=== PATIENT | female | born 1995 | race Caucasian/White ===

== ENCOUNTER 2023-01-21 18:51 | Emergency (ER) | payer MEDICAID, SELFPAY ==
[2023-01-21 18:57] VITALS: BP 130/76; PULSE 83; RESP 20; TEMP 36.8; O2SAT 98; BMI 45.8
--- NOTE | 2023-01-21 19:03 | ED.URI1 ---
HPI - URI/Sore Throat General Chief Complaint: Upper Respiratory Infection Stated Complaint: URTI COMPLAINT Time Seen by Provider: 01/21/23 18:59 Source: patient Limitations: no limitations History of Present Illness HPI Narrative: 27 year old female presents to the ED for cough, congestion, body aches. Onset was 2-3 days ago. Denies fever, chills, SOB, N/V/D. Her son is also ill. She denies concern for Covid-19 and is declining testing today. Denies pain at this time. MD elicited complaint: Reports cough, sore throat, rhinorrhea and nasal congestion; Denies fever Associated symptoms: Reports headache, rhinorrhea, nasal congestion and cough; Denies fever, chills, chest pain, shortness of breath, abdominal pain, vomiting or diarrhea Related Data Allergies Allergy/AdvReac Type Severity Reaction Status Date / Time Penicillins Allergy Severe Verified 01/21/23 18:58 Review of Systems ROS Constitutional Denies: fever or chills Ears, nose, mouth, and throat Reports: throat pain, nasal discharge and nasal congestion; Denies: neck pain, ear pain or ear discharge Cardiovascular Denies: chest pain Respiratory Reports: cough; Denies: shortness of breath Gastrointestinal Denies: abdominal pain, nausea, vomiting or diarrhea Musculoskeletal Denies: back pain or neck pain Integumentary/Breast Denies: rash or itching Neurological Denies: headache Endocrine Reports: fatigue Exam Constitutional Vital Signs, click to edit/add: Last Vital Signs Temp 98.2 F 01/21/23 18:57 Pulse 83 01/21/23 18:57 Resp 20 01/21/23 18:57 BP 130/76 01/21/23 18:57 Pulse Ox 98 01/21/23 18:57 O2 Del Method Room Air 01/21/23 18:57 Common normals: no apparent distress and oriented x3 Exam limitations: no altered mental status General appearance: cooperative; not in distress and not ill appearing [facility] Common normals: normocephalic Nose: nasal discharge External ear: external ears normal External auditory canal: EACs normal Tympanic membrane: TMs normal bilaterally Mouth: oral and palatal mucosa normal, lip normal and tongue normal Eye Common normals: conjunctivae normal and no scleral icterus Neck & C-Spine Common normals: supple Chest Chest: symmetrical chest wall rise Respiratory Common normals: normal respiratory effort and clear to auscultation bilaterally Effort & inspection: symmetric chest movement Cardio Common normals: regular rate and regular rhythm Neuro Common normals: oriented x3 Sensorium/orientation: awake and alert Course Vital Signs Vital signs: Vital Signs Temperature 98.2 F 01/21/23 18:57 Pulse Rate 83 01/21/23 18:57 Respiratory Rate 20 01/21/23 18:57 Blood Pressure 130/76 01/21/23 18:57 Pulse Oximetry 98 01/21/23 18:57 Oxygen Delivery Method Room Air 01/21/23 18:57 Temperature 98.2 F 01/21/23 18:57 Pulse Rate 83 01/21/23 18:57 Respiratory Rate 20 01/21/23 18:57 Blood Pressure 130/76 01/21/23 18:57 Pulse Oximetry 98 01/21/23 18:57 Oxygen Delivery Method Room Air 01/21/23 18:57 MDM - URI/Sore Throat MDM Narrative Medical decision making narrative: LS were clear. Pharynx was unremarkable. Viral URI was discussed with the patient. Return precautions were discussed. Follow up with pcp for a recheck, further evaluation and treatment. She declined Covid-19 testing today. Differential Diagnosis Differential diagnosis: Likely upper respiratory infection, sinusitis, viral infection, bronchitis, influenza and other (Covid-19) Discharge Plan Discharge Chief Complaint: Upper Respiratory Infection Clinical Impression: Upper respiratory infection, viral Patient Disposition: Home, Self-Care Time of Disposition Decision: 19:08 Condition: Good Mode of Transportation: Private Vehicle Instructions: Upper Respiratory Infection (ED) Stand Alone Forms: Portal Instructions Referrals: Physician,Non-Staff, MD [Primary Care Provider] - 1 week Discharge Date/Time: 01/21/23 19:35
== END 2023-01-21 19:35 | disposition home or self-care (01) ==
LOC: ER 19:36
PROVIDERS: Emergency Provider Emergency Medicine
DX: J06.9 Acute upper respiratory infection, unspecified (principal)
CPT/HCPCS: 99281

== ENCOUNTER 2023-02-25 16:01 | Emergency (ER) | payer MEDICAID, SELFPAY ==
[2023-02-25 16:08] VITALS: BP 122/82; PULSE 71; RESP 20; TEMP 36.7; O2SAT 100; BMI 49.9
--- NOTE | 2023-02-25 17:08 | ED_ITS ---
HPI - General Adult General Chief complaint: Headache Stated complaint: MIGRAINE Time Seen by Provider: 02/25/23 16:51 Source: patient Mode of arrival: walk-in History of Present Illness HPI narrative: Patient is a 28-year-old female who is presenting to the Emergency Room today with chief complaint four-day history of headache that is moving. Patient states it is in the left frontal aspect, then moves to the right frontal aspect drink, then to the top of the scalp, then to the left parietal area. Patient states she feels like it's a tension headache, but she has no neck pain. No meningeal signs or symptoms. Patient has mild nausea, no vomiting. Patient denies any type of trauma or fall. Patient has no PCP. Patient has no hearing or vision changes. She is no chest pain, shortness of breath. Patient states she took a Tylenol yes terday with no relief, nothing today. No other acute complaints. Patient is here because the headache has been constant, for 4 days. Patient states is approximately 6/7 out of 10. Patient's headache was not the worse headache of her life, not sudden onset, not thunderclap in nature. . All systems are negative except as noted/marked. All systems reviewed and otherwise negative. . Nurses note and vital signs reviewed and patient is not hypoxic. General: The patient appears well and in no apparent distress. Patient is resting comfortably on cart. Patient is not toxic, lethargic, or listless. Patient smells of body odor. Poor hygiene. Skin: Warm, dry, no pallor noted. There is no rash noted. No petechiae, purpura. Head: Normocephalic, atraumatic; Patient has no midline or paracervical tenderness to palpation. Full range of motion with no difficulty, no meningeal signs or symptoms. No tenderness to palpation to bilateral maxillary or frontal sinus. Eye: Normal conjunctiva, no drainage, EOMI. PERRL Ears, Nose, Mouth, and Throat: oral mucosa is moist. Nares patent. Mouth without vesicles. Cardiovascular: Regular Rate and Rhythm, no murmur, gallop, rub Respiratory: Patient is in no distress, no accessory muscle use, lungs are clear to auscultation, no wheezing, rales or rhonchi Back: non-tender, no CVA tenderness bilaterally to percussion. No CT LS midline pain GI: soft, Over the obese, no tenderness to palpation, no masses appreciated. No rebound, guarding, or rigidity noted. No flank pain bilateral, No distention Musculoskeletal: Patient has full range of motion of all of the extremities, no motor, sensory, or focal neurological deficits Neurological: A&O x3, normal speech Psychiatric: Cooperative Related Data Previous Rx's Medication Instructions Recorded metoclopramide HCl 10 mg tablet 10 mg PO Q6H PRN nausea and 02/25/23 (Reglan) vomiting 3 days #7 tabs Allergies Allergy/AdvReac Type Severity Reaction Status Date / Time Penicillins Allergy Severe Verified 02/25/23 16:10 Exam Constitutional Vital Signs, click to edit/add: Last Vital Signs Temp 98.0 F 02/25/23 16:08 Pulse 72 02/25/23 17:48 Resp 18 02/25/23 17:48 BP 142/80 H 02/25/23 17:48 Pulse Ox 98 02/25/23 17:48 O2 Del Method Room Air 02/25/23 16:43 Course Vital Signs Vital signs: Vital Signs Temperature 98.0 F 02/25/23 16:08 Pulse Rate 71 02/25/23 16:08 Respiratory Rate 20 02/25/23 16:08 Blood Pressure 122/82 02/25/23 16:08 Pulse Oximetry 100 02/25/23 16:08 Oxygen Delivery Method Room Air 02/25/23 16:08 Temperature 98.0 F 02/25/23 16:08 Pulse Rate 72 02/25/23 17:48 Respiratory Rate 18 02/25/23 17:48 Blood Pressure 142/80 H 02/25/23 17:48 Pulse Oximetry 98 02/25/23 17:48 Oxygen Delivery Method Room Air 02/25/23 16:43 Discharge Plan Discharge Chief Complaint: Headache Clinical Impression: Headache Patient Disposition: Home, Self-Care Condition: Good Prescriptions / Home Meds: New metoclopramide HCl [Reglan] 10 mg tablet 10 mg PO Q6H PRN (Reason: nausea and vomiting) 3 Days Qty: 7 0RF Instructions: Acute Headache (ED) Additional Instructions: PCP referral list has been given to his well. Use [id number] Tylenol and Motrin as needed help with headache. Reglan can help with nausea, vomiting and headache. Establish a PCP. Stand Alone Forms: Portal Instructions Referrals: Physician,Non-Staff, MD [Primary Care Provider] - 1 week Discharge Date/Time: 02/25/23 18:39
[2023-02-25] MEDS: 0.9 % SODIUM CHLORIDE 1,000 ML 1000 ML IV (17:14)
[2023-02-25] MEDS: KETOROLAC TROMETHAMINE 30 MG/ML VIAL 15 MG IVP (17:14)
[2023-02-25] MEDS: METOCLOPRAMIDE HCL 10 MG/2 ML VIAL IVP (17:15)
[2023-02-25] MEDS: ASPIRIN/ACETAMINOPHEN/CAFFEINE 1 TAB TABLET PO (17:23)
[2023-02-25 17:48] VITALS: BP 142/80; PULSE 72; RESP 18; O2SAT 98
== END 2023-02-25 18:39 | disposition home or self-care (01) ==
PROVIDERS: Emergency Provider Emergency Medicine
DX: R51.9 Headache, unspecified (principal)
CPT/HCPCS: 96374; 96375; 99284

== ENCOUNTER 2023-10-14 09:51 | Emergency (ER) | payer MEDICAID, SELFPAY ==
[2023-10-14 10:03] VITALS: BP 122/82; PULSE 82; TEMP 36.6; O2SAT 100; BMI 49.9
--- NOTE | 2023-10-14 10:25 | ED.ABDPAIN1 ---
HPI - Abdominal Pain General Chief Complaint: Abdominal Pain Stated Complaint: ABDOMINAL PAIN Time Seen by Provider: 10/14/23 10:19 Source: patient Mode of arrival: walk-in Limitations: no limitations History of Present Illness HPI narrative: 28-year-old female presents to the emergency department for lower abdominal pain. She is 11 days late for her period but she took home test and they were negative. No fever or diarrhea but she has been nauseous. She feels like there is a balloon inside of her. She does not have upper abdominal pain and has had no trauma. Related Data Allergies Allergy/AdvReac Type Severity Reaction Status Date / Time Penicillins Allergy Severe Verified 10/14/23 10:07 Review of Systems ROS Narrative A ten point review of systems is negative except as noted above. Exam Narrative Exam Narrative: Nurses note and vital signs reviewed and patient is not hypoxic. General: The patient appears well and in no apparent distress. Patient is resting comfortably on cart. Skin: Warm, dry, no pallor noted. There is no rash noted. Head: Normocephalic, atraumatic Eye: Normal conjunctiva, no drainage Ears, Nose, Mouth, and Throat: oral mucosa is moist. Nares patent. Cardiovascular: Regular Rate and Rhythm Respiratory: Patient is in no distress, no accessory muscle use, lungs are clear to auscultation, no wheezing, rales or rhonchi Back: non-tender GI: Soft and nondistended. Minimal tenderness in the midline low abdomen, no mass Musculoskeletal: The patient has no evidence of calf tenderness, no pitting edema, symmetrical pulses noted bilaterally Neurological: A&O, normal speech Psychiatric: Cooperative Constitutional Vital Signs, click to edit/add: Last Vital Signs Temp 97.9 F 10/14/23 10:03 Pulse 82 10/14/23 10:03 Resp 16 10/14/23 10:03 BP 122/82 10/14/23 10:03 Pulse Ox 100 10/14/23 10:03 O2 Del Method Room Air 10/14/23 10:03 Course Vital Signs Vital signs: Vital Signs Temperature 97.9 F 10/14/23 10:03 Pulse Rate 82 10/14/23 10:03 Respiratory Rate 16 10/14/23 10:03 Blood Pressure 122/82 10/14/23 10:03 Pulse Oximetry 100 10/14/23 10:03 Oxygen Delivery Method Room Air 10/14/23 10:03 Temperature 97.9 F 10/14/23 10:03 Pulse Rate 82 10/14/23 10:03 Respiratory Rate 16 10/14/23 10:03 Blood Pressure 122/82 10/14/23 10:03 Pulse Oximetry 100 10/14/23 10:03 Oxygen Delivery Method Room Air 10/14/23 10:03 MDM - Abdominal Pain MDM Narrative Medical decision making narrative: Workup is negative. She is not and ultrasound shows no acute findings. She will follow-up with her gynecology nurse practitioner. Treatment diagnosis and follow-up were discussed with the patient. Differential Diagnosis Differential diagnosis: Likely abdominal pain and other (, ectopic ) Lab Data Attestation: I reviewed the patient's lab results. Labs: Lab Results 10/14/23 10/14/23 Range/Units 10:06 10:43 WBC 12.0 H (4.0-11.0) 10^3/uL RBC 4.97 (4.20-5.40) 10^6/uL Hgb 14.8 (12.0-16.0) g/dL Hct 45.5 (36.0-48.0) % MCV 91.5 (81.0-99.0) fL MCH 29.8 (26.7-34.0) pg MCHC 32.5 (29.9-35.2) g/dL RDW 13.2 (11.0-15.0) % Plt Count 314 (150-450) 10^3/uL MPV 9.7 (9.5-13.5) fL Neut % (Auto) 65.8 (43.0-75.0) % Lymph % (Auto) 25.4 (20.5-60.0) % [place] % (Auto) 5.5 (1.7-12.0) % Eos % (Auto) 2.2 (0.9-7.0) % Baso % (Auto) 0.8 (0.2-2.0) % Neut # (Auto) 7.9 H (1.4-6.5) 10^3/uL Lymph # (Auto) 3.1 (1.2-3.8) 10^3/uL [place] # (Auto) 0.7 (0.3-0.8) 10^3/uL Eos # (Auto) 0.3 (0.0-0.7) 10^3/uL Baso # (Auto) 0.1 (0.0-0.1) 10^3/uL Abs Immat Gran (auto) 0.04 H (0.00-0.03) 10^3/uL Imm/Tot Granulo (auto) 0.3 (0.0-0.5) % Sodium 140 (136-145) mmol/L Potassium 3.9 (3.5-5.1) mmol/L Chloride 105 (98-107) mmol/L Carbon Dioxide 25.6 (21.0-32.0) mmol/L Anion Gap 13.3 BUN 13.0 (7.0-18.0) mg/dL Creatinine 0.65 (0.55-1.02) mg/dL Est GFR ( Amer) >60 (>=60) Est GFR (Non-Af Amer) >60 (>=60) BUN/Creatinine Ratio 20.0 Glucose 84 (74-106) mg/dL Calcium 9.2 (8.5-10.1) mg/dL Urine Color Lt. yellow (YELLOW) Urine Clarity Clear (CLEAR) Urine pH 6.0 (5.0-9.0) Ur Specific [place] 1.025 (1.005-1.025) Urine Protein Negative (NEG/TRACE) mg/dL Urine Glucose (UA) Negative (NEGATIVE) mg/dL Urine Ketones Negative (NEGATIVE) mg/dL Urine Occult Blood Negative (NEGATIVE) Urine Nitrite Negative (NEGATIVE) Urine Bilirubin Negative (NEGATIVE) Urine Urobilinogen 0.2 (0.2-1.0) EU/dL Ur Leukocyte Esterase Negative (NEGATIVE) Urine HCG, Qual Negative (NEGATIVE) Imaging Data Pelvic ultrasound: Radiologist's impression: ITS Impressions Transvaginal US 10/14/23 11:28 IMPRESSION: 1. Tiny fluid collection within endometrial cavity; blood products versus cyst. Thin endometrium and negative test weighs against early . 2. Right ovary contains a 2.2 cm cyst versus dominant follicle. No overtly suspicious findings. Electronically authenticated by: KURTIS ENRIQUEZ Date: 10/14/2023 12:06 Discharge Plan Discharge Stand Alone Forms: Portal Instructions Chief Complaint: Abdominal Pain Clinical Impression: Abdominal pain Patient Disposition: Home, Self-Care Time of Disposition Decision: 12:17 Mode of Transportation: Private Vehicle Print Language: Arabic Instructions: Abdominal Pain (ED) Referrals: Physician,Non-Staff, MD [Primary Care Provider] - 1 week
[2023-10-14 10:34] LABS: Bilirubin Urine NEGATIVE (NEGATIVE); Blood Urine NEGATIVE (NEGATIVE); Clarity Urine CLEAR (CLEAR); Color Urine LT. YELLOW (YELLOW); Glucose Urine UA NEGATIVE (NEGATIVE); Ketones Urine NEGATIVE (NEGATIVE); Leukocyte Esterase Urine NEGATIVE (NEGATIVE); Nitrite Urine NEGATIVE (NEGATIVE); Protein Urine NEGATIVE (NEG/TRACE); Specific Gravity Urine 1.025 (1.005-1.025); Urobilinogen Urine 0.2 EU/dL (0.2-1.0)
[2023-10-14 10:36] LABS: HCG Qualitative Urine* NEGATIVE (NEGATIVE); Urine Microscopic Indicated NO
[2023-10-14 11:04] LABS: Basophils Absolute Auto 0.1 10^3/uL (0.0-0.1); Basophils Percent Auto 0.8 % (0.2-2.0); Eosinophils Absolute Auto 0.3 10^3/uL (0.0-0.7); Eosinophils Percent Auto 2.2 % (0.9-7.0); Hematocrit 45.5 % (36.0-48.0); Hemoglobin 14.8 g/dL (12.0-16.0); Immature Granulocytes Abs Auto 0.04 10^3/uL (0.00-0.03); Immature Granulocytes Pct Auto 0.3 % (0.0-0.5); Lymphocytes Absolute Auto 3.1 10^3/uL (1.2-3.8); Lymphocytes Percent Auto 25.4 % (20.5-60.0); Mean Corpuscular HGB Conc 32.5 g/dL (29.9-35.2); Mean Corpuscular Hemoglobin 29.8 pg (26.7-34.0); Mean Corpuscular Volume 91.5 fL (81.0-99.0); Mean Platelet Volume 9.7 fL (9.5-13.5); Monocytes Absolute Auto 0.7 10^3/uL (0.3-0.8); Monocytes Percent Auto 5.5 % (1.7-12.0); Neutrophils Absolute Auto 7.9 10^3/uL (1.4-6.5); Neutrophils Percent Auto 65.8 % (43.0-75.0); Platelet Count 314 10^3/uL (150-450); Red Blood Count 4.97 10^6/uL (4.20-5.40); Red Cell Distribution Width 13.2 % (11.0-15.0)
[2023-10-14 11:24] LABS: Anion Gap 13.3; Calcium 9.2 mg/dL (8.5-10.1); Carbon Dioxide 25.6 mmol/L (21.0-32.0); Chloride 105 mmol/L (98-107); Estimated GFR (African America >60 (>=60); Estimated GFR (Non-African Ame >60 (>=60); Glucose 84 mg/dL (74-106); Potassium 3.9 mmol/L (3.5-5.1); Sodium 140 mmol/L (136-145)
--- NOTE | 2023-10-14 11:28 | US_ITS ---
The [address] [address] Patient Name: JOHN YAÑEZ MRN: [id number] date: 1995 Sex: F Assigned Patient Location: ER Current Patient Location: ER Accession/Order Number: [id number] Exam Date: 10/14/2023 11:30 Report Date: 10/14/2023 12:06 At the request of: LENNY VALADEZ Procedure: US pelvis transvaginal EXAMINATION: US pelvis transvaginal HISTORY: Amenorrhea, not , pain , cramping COMPARISON: No relevant comparison available. TECHNIQUE: Transabdominal and/or transvaginal sonographic examination was performed as indicated by examination type. FINDINGS: UTERUS: Normal size and appearance. Uterus size: ENDOMETRIUM: 7 x 4 x 3 mm hypoechoic fluid collection/cyst within left lateral aspect of endometrial cavity. Endometrial thickness: 7 mm RIGHT OVARY: Contains a 2.2 cm cyst/dominant follicle. Blood flow present within ovary on color Doppler. Ovary size: 3.9 x 2.4 x 2.3 cm LEFT OVARY: Not seen. No suspicious adnexal findings. CUL-DE-SAC: Unremarkable. No significant free fluid. BLADDER: Unremarkable. OTHER: None. US/US pelvis transvaginal IMPRESSION: 1. Tiny fluid collection within endometrial cavity; blood products versus cyst. Thin endometrium and negative test weighs against early . 2. Right ovary contains a 2.2 cm cyst versus dominant follicle. No overtly suspicious findings. Electronically authenticated by: KURTIS ENRIQUEZ Date: 10/14/2023 12:06
== END 2023-10-14 12:56 | disposition home or self-care (01) ==
PROVIDERS: Emergency Provider Emergency Medicine
DX: R10.9 Unspecified abdominal pain (principal)
CPT/HCPCS: 36415; 76830; 80048; 81003; 84703; 85025; 99284

== ENCOUNTER 2024-04-03 18:21 | Emergency (ER) | payer MEDICAID, SELFPAY ==
--- OUTSIDE RECORDS SUMMARY | 2024-04-03 18:25 | XMS_ITS | CCD ---
Author Organization [facility] Care Team Providers Care Dry Sander Name Role Phone PHYSICIAN, DEFAULT Unavailable Unavailable PHYSICIAN, DEFAULT Unavailable Unavailable PHYSICIAN, DEFAULT Unavailable Unavailable PHYSICIAN, DEFAULT Unavailable Unavailable SIMONE GOSS Consulting Unavailable SIMONE GOSS Admitting Unavailable REQUEST, NONE LISTED Primary Care Unavailable SIMONE GOSS Attending Unavailable JUDY BOOTH Attending Unavailable JUDY BOOTH Admitting Unavailable REQUEST, NONE LISTED Primary Care Unavailable RODOLFO FERNANDEZ Consulting Unavailable JUVENTINO MA Consulting Unavailable Unavailable Primary Care Provider UnavailElia Miller APRN, CNP Primary Care Provider ELIA MEDINA Primary Care Unavailable RAÚL BAEZ Attending Unavailable NANCIE JESUS Attending Unavailable ZAK KENT Attending Unavailable NANCIE JESUS Attending Unavailable JESUS PANIAGUA Attending Unavailable NANCIE JESUS Attending Unavailable FELIX NAJERA Referring Unavailable NO PCP, NO PCP Primary Care Unavailable NO PCP, NO PCP Primary Care Unavailable KIRILL ROUSE Attending Unavailable Allergies Allergy Classification Reported Allergen(s) Allergy Type Date of Onset Reaction(s) Facility Penicillins (antibiotic) (2 sources) Penicillins Drug Allergy 7 Hives, Itching [facility] (1 source) Penicillin Drug Allergy 7 [facility] (5 sources) Penicillins; Translations: [PENICILLINS] Propensity to adverse reactions to drug 7 Hives, Itching [facility] (1 source) Amoxicillin; Translations: [AMOXICILLIN] Drug Allergy 4 [facility] Repository Medications Current Medications Medication Drug Class(es) Dates Sig (Normalized) Sig (Original) acetaminophen 325 mg oral tablet (2 sources) Start: 08-08-2021 take 2 tablets by mouth every six hours as needed for pain acetaminophen (TYLENOL) 325 MG tablet Take 2 tablets by mouth every 6 hours as needed for Pain 30 tablet 0 08/08/2021 Active Acetaminophen / HYDROcodone (1 source) Opioid Agonist Start: 12-06-2021 hydrocodone-acetam inophen (NORCO) tablet 5-325 mg (STARTER PACK) clindamycin 150 mg oral capsule (2 sources) Lincosamide Antibacterial Start: 08-08-2021 End: 08-15-2021 take 2 capsules by mouth four times daily clindamycin (CLEOCIN) 150 MG capsule Take 2 capsules by mouth 4 times daily for 7 days 56 capsule 0 08/08/2021 08/15/2021 Active Start: 08-08-2021 End: 08-08-2021 clindamycin (CLEOCIN) capsul e 300 mg DULoxetine 30 mg delayed release oral capsule (1 source) Serotonin and Norepinephrine Reuptake Inhibitor Start: 10-27-2021 take 1 capsule by mouth once daily DULoxetine (CYMBALTA) 30 MG extended release capsule Indications: Dysthymia Take 1 capsule by mouth daily 30 capsule 0 10/27/2021 Active folic acid 1 mg oral tablet (5 sources) Start: 08-29-2020 End: 08-08-2021 take 1 tablet by mouth once daily folic acid (FOLVITE) 1 MG tablet Indications: History of neural tube defect Take 4 tablets by mouth daily 120 tablet 1 08/29/2020 08/08/2021 Discontinued (LIST CLEANUP) ibuprofen 600 mg oral tablet (4 sources) Nonsteroidal Anti-inflammatory Drug Start: 08-08-2021 take 1 tablet by mouth every eight hours as needed for pain ibuprofen (IBU) 600 MG tablet Take 1 tablet by mouth every 8 hours as needed for Pain 20 tablet 0 08/08/2021 Active Start: 04-29-2021 End: 04-29-2021 ibuprofen (ADVIL;MOTRIN) tab let 400 mg Start: 01-16-2021 End: 01-16-2021 ibuprofen (ADVIL;MOTRIN) tab let 800 mg omeprazole 40 mg delayed release oral capsule (1 source) Proton Pump Inhibitor Start: 10-27-2021 take 1 capsule by mouth once daily before breakfast omeprazole (PRILOSEC) 40 MG delayed release capsule Indications: Chronic RUQ pain , Gastroesophageal reflux disease without esophagitis Take 1 capsule by mouth every morning (before breakfast) 90 capsule 1 10/27/2021 Active Vit-Fe Haj-EJ-Mvoom (ONE-A-DAY WOMENS ) 28-0.8 & 223 MG MISC (5 sources) Start: 08-29-2020 End: 08-08-2021 take 1 tablet by mouth once daily Vit-Fe Doi-WR-Dnlbb (ONE-A-DAY WOMENS ) 28-0.8 & 223 MG MISC Indications: History of neural tube defect Take 1 tablet by mouth daily 90 each 4 08/29/2020 08/08/2021 Discontinued (LIST CLEANUP) Start: 08-29-2020 take 1 tablet by gail th once daily Vit-Fe Lzv-LK-Lbcdu (ONE-A-DAY WOMENS ) 28-0.8 & 223 MG MISC Indications: History of neural tube defect Take 1 tablet by mouth daily 90 each 4 08/29/2020 Active sertraline 50 mg oral tablet (5 sources) Serotonin Reuptake Inhibitor Start: 08-29-2020 End: 08-08-2021 take 1 tablet by mouth once daily sertraline (ZOLOFT) 50 MG tablet Indications: Positive depression screening Take 1 tablet by mouth daily 30 tablet 1 08/29/2020 08/08/2021 Discontinued (LIST CLEANUP) sulfamethoxazole 800 mg / trimethoprim 160 mg oral tablet (1 source) Dihydrofolate Reductase Inhibitor Antibacterial, Sulfonamide Antimicrobial Start: 12-06-2021 End: 12-16-2021 take 1 tablet by mouth twice daily sulfamethoxazole- trimethoprim (BACTRIM DS) 800-160 MG per tablet Take 1 tablet by mouth 2 times daily for 10 days 20 tablet 0 12/06/2021 12/16/2021 Active Completed/Discontinued Medications Medication Drug Class(es) Dates Sig (Normalized) Sig (Original) cefTRIAXone (ROCEPHIN) 1000 mg IVPB in 50 mL D5W minibag (1 source) Start: 12-06-2021 End: 12-06-2021 cefTRIAXone (ROCEPHIN) 1000 mg IVPB in 50 mL D5W minibag dexamethasone 4 mg oral tablet (1 source) Corticosteroid Start: 01-16-2021 End: 01-16-2021 dexamethasone (DECADRON) tablet 8 mg 1 ml ketorolac tromethamine 30 mg/ml cartridge (1 source) Nonsteroidal Anti-inflammatory Drug, Cyclooxygenase Inhibitor Start: 12-06-2021 End: 12-06-2021 ketorolac (TORADOL) injection 30 mg ondansetron 4 mg disintegrating oral tablet (1 source) Serotonin-3 Receptor Antagonist Start: 04-29-2021 End: 04-29-2021 ondansetron (ZOFRAN-ODT) disintegrating tablet 4 mg 50 ml sodium chloride 9 mg/ml injection (1 source) Start: 12-06-2021 End: 12-06-2021 0.9 % sodium chloride bolus Problems Active Problems Problem Classification Problem Date Documented Date Episodic/Chronic Abdominal pain (3 sources) Unspecified abdominal pain; Translations: [Suprapubic pain] Onset: 06-16-2019 Episodic Anxiety disorders (1 source) Mixed anxiety and depressive disorder; Translations: [Anxiety disorder, unspecified] Onset: 07-03-2017 10-27-2021 Chronic Cardiac and circulatory congenital anomalies (1 source) Atrial septal defect; Translations: [Atrial septal defect] Onset: 11-07-2018 10-27-2021 Chronic Disorders of teeth and jaw (4 sources) Right temporomandibular joint disorder, unspecified; Translations: [Other specified disorders of teeth and supporting structures] Onset: 05-03-2020 Gastroduodenal ulcer (except hemorrhage) (1 source) Peptic ulcer; Translations: [Peptic ulcer, site unspecified, unspecified as acute or chronic, without hemorrhage or perforation] Onset: 10-27-2021 10-27-2021 Chronic Headache; including migraine (1 source) Headache; Translations: [Nonintractable headache, unspecified chronicity pattern, unspecified headache type] Episodic Menstrual disorders (1 source) Menstrual period late; Translations: [Irregular menstruation, unspecified] Onset: 06-11-2017 10-27-2021 Chronic Nausea and vomiting (1 source) Vomiting, unspecified; Translations: [VOMITING UNSPECIFIED] Onset: 06-16-2019 Other connective tissue disease (1 source) Pain in upper limb; Translations: [Pain in right arm] Episodic Other and delivery including normal (1 source) Encounter for supervision of normal , unspecified, unspecified trimester; Translations: [Encounter for supervision of normal , unspecified, unspecified trimester] Onset: 01-22-2024 Episodic Spondylosis; intervertebral disc disorders; other back problems (1 source) Acute low back pain; Translations: [Low back pain] Episodic Substance-related disorders (2 sources) Tobacco smoking behavior - finding; Translations: [Nicotine dependence, unspecified, uncomplicated] Onset: 07-03-2017 10-27-2021 Chronic Unclassified (1 source) disorder; Translations: [ anomaly] Onset: 08-08-2017 10-27-2021 Unclassified (1 source) Cold Like Symptoms Onset: 07-12-2023 Unclassified (1 source) earache, cough, congested Onset: 07-12-2023 Urinary tract infections (1 source) Urinary tract infectious disease; Translations: [Urinary tract infection, site not specified] Episodic Past or Other Problems Problem Classification Problem Date Documented Da te Episodic/Chronic Acute bronchitis (1 source) Acute bronchitis, unspecified; Translations: [Acute bronchitis, unspecified] Onset: 07-12-2023 Episodic Disorders of teeth and jaw (3 sources) Dental caries, unspecified; Translations: [Pain] Onset: 05-05-2020 Episodic Nervous system congenital anomalies (6 sources) H/O: congenital anomaly; Translations: [Personal history of other 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] Onset: 08-29-2020 08-29-2020 Episodic Other gastrointestinal disorders (1 source) Diarrhea, unspecified; Translations: [DIARRHEA UNSPECIFIED] Onset: 06-16-2019 Episodic Other lower respiratory disease (3 sources) Cough; Translations: [COUGH] Onset: 06-13-2019 Episodic Other upper respiratory infections (1 source) Acute upper respiratory infection, unspecified; Translations: [ACUTE UP RESPIRATORY INFECTION UNS] Onset: 06-16-2019 Episodic Otitis media and related conditions (1 source) Otitis media, unspecified, unspecified ear; Translations: [Otitis media, unspecified, unspecified ear] Onset: 07-12-2023 Episodic Screening and history of mental health and substance abuse codes (7 sources) Personal history of nicotine dependence; Translations: [Depression screening positive] Onset: 06-16-2019 08-29-2020 Episodic Results Test Name Value Interpretation Reference Range Facility HCG.beta subunit IA 3rd IS Q non 01-22-2024 SERUM B HCG,3RD I.S. <[address] [facility] Comment on above: Result Comment: NEW REFERENCE RANGE WEEKS (SINCE LMP) MIU/mL 3 WEEKS 5 - 50 4 WEEKS 5 - 426 5 WEEKS 18 - 7,340 6 WEEKS 1,080 - 56,500 7-8 WEEKS 7,650 - 229,000 9-12 WEEKS 25,700 - 288,000 13-16 WEEKS 13,300 - 254,000 17-24 WEEKS 4,060 - 165,400 25-40 WEEKS 3,640 - 117,000 MALES AND NON- FEMALES - <5 MIU/mL This test has been FDA approved for use in only. Elevated levels are not necessarily diagnostic for trophoblastic or nontrophoblastic neoplasms. Performed By: #### 2 0415-6 #### [facility] ([id number]) [address] [place] [address] [address] [place] [address] SARS/FLU A+B/RSV by NAAT/Mol ecularon 07-12-2023 SARS/FLU A+B/RSV by NAAT/Molecular FLU A PCR Negative (qualifier value) FLU B PCR Negative (qualifier value) RSV by PCR Negative (qualifier value) SARS CoV 2 Not detected (qualifier value) NOTE The Xpert Xpress SARS-CoV-2/Flu/RSV Plus test is a rapid, multiplexed real-time RT-PCR test intended for the simultaneous qualitative detection and differentiation of SARS-CoV-2, influenza A, influenza B and respiratory syncytial virus (RSV) viral RNA from individuals suspected of respiratory viral infection consistent with COVID-19 by their healthcare provider. This test has not been validated in asymptomatic patients. The Xpert Xpress SARS-CoV-2 test is intended for use by qualified and trained operators who are performing tests using either [employer] or [employer] systems and is limited to laboratories that meet the CLIA requirements to perform high and moderate complexity tests. The Xpert Xpress SARS-CoV-2/Flu/RSV Plus is only for use under the Food and Drug Administration's Emergency Use Authorization. Results are for the simultaneous detection and differentiation of SARS-CoV-2, influenza A, influenza B and RSV nucleic acids in clinical specimens. SARS-CoV-2, influenza A, influenza B and RSV RNA identified by this test are generally detectable in upper respiratory samples during the acute phase of infection. Positive results are indicative of the presence of the identified virus, but do not rule out bacterial infection or co-infection with other pathogens not detected by this test. Clinical correlation with patient history and other diagnostic information is necessary to determine patient infection status. The agent detected may not be the definite cause of disease. Negative results do not preclude SARS-CoV-2, influenza A, influenza B and RSV infection and should not be used as the sole basis for treatment or other patient management decisions. Negative results must be combined with clinical observations, patient history and epidemiological information. An Invalid result may occur with specimen-associated inhibition unable to be resolved with specimen repeat. Fact Sheet for Healthcare Providers: https://www.fda.gov /media/834433/downl oad Fact Sheet for Patients: https://www.fda.gov /media/028504/downl oad Normal [facility] Comment on above: Performed By: #### C OVFLR #### [facility] ([id number]) [address] [place] [address], [place] [address] CBC with Auto Differentialon 12-06-2021 Absolute Eos # 0.39 [place] [facility] Absolute Immature Granulocyte 0.03 [facility] Absolute Lymph # 3[facility]22 [facility] Absolute Gilchrist # 0.93 [facility] Basophils (Bld) [#/Vol] 0.08 10*3/uL [facility] Basophils/100 WBC (Bld) 1 % 0 - 2 % B ON [facility] Eosinophils/100 WBC (Bld) 4 % 1 - 4 % [facility] Hematocrit (Bld) [Volume fraction] 45.7 % 36.3 - 47.1 % [facility] Hemoglobin (Bld) [Mass/Vol] 14.8 g/dL 11.9 - 15.1 g/dL [facility] Immature granulocytes/100 WBC (Bld) 0 % 0 [facility] Lymphocytes/100 WBC (Bld) 30 % 24 - 43 % [facility] MCH (RBC) [Entitic mass] 30.5 pg 25.2 - 33.5 pg [facility] MCHC (RBC) [Mass/Vol] 32.4 g/dL 28.4 - 34.8 g/dL [facility] MCV (RBC) [Entitic vol] 94.2 fL 82.6 - 102.9 fL [facility] Monocytes/100 WBC (Bld) 9 % 3 - 12 % B ON [facility] NRBC Automated 0.0 0.0 per 100 WBC [facility] Platelet distribution width (Bld) [Ratio] 13.5 % 11.8 - 14.4 % [facility] Platelet mean volume (Bld) [Entitic vol] 10.0 fL 8.1 - 13.5 fL [facility] Platelets (Bld) [#/Vol] 280 10*3/uL [facility] RBC (Bld) [#/Vol] 4.85 10*6/uL 3.95 - 5.1 1 m/uL [facility] Segmented neutrophils/100 WBC (Bld) 56 % 36 - 65 % [facility] Segs Absolute 6.22 [facility] WBC (Bld) [#/Vol] 10.9 10*3/uL [facility] with Diffon 12-06-2021 Abs. Basophil 0.08 k/uL Normal 0.00-0.20 [facility] Comment on above: Performed By: #### C MICHAEL Ozuna, CDP #### [facility] [address] [place], [facility] Tower Foreman: Jovon Zayas MD Abs.Imm.Granulocyte 0.03 k/uL Normal 0.00-0.30 [facility] Comment on above: Performed By: #### MICHAEL Motley, CDP #### [facility] [address] [place] [address] Tower Foreman: Jovon Zayas MD Abs.Neutrophil (Seg) 6.22 k/uL Normal 1.50-8.10 [facility] Comment on above: Performed By: #### C P, LIP, CDP #### [address] [place], [facility]83 Tower Foreman: Jovon Zayas MD Basophils/100 WBC (Bld) 1 % Normal 0-2 [facility] Comment on above: Performed By: #### C P, LIP, CDP #### [address] [place], [facility]83 Tower Foreman: Jovon Zayas MD Eosinophils (Bld) [#/Vol] 0.39 10*3/uL Normal 0.00-0.44 [facility] Comment on above: Performed By: #### C P, LIP, CDP #### [address] [place] [id number] Tower Foreman: Jovon Zayas MD Eosinophils/100 WBC (Bld) 4 % Normal 1-4 [facility] Comment on above: Performed By: #### C P, LIP, CDP #### [address] [place], [place] [address] Tower Foreman: Jovon Zayas MD Erythrocyte distribution width (RBC) [Ratio] 13.5 % Normal 11.8-14.4 [facility] Comment on above: Performed By: #### C P, LIP, CDP #### [address] [place], [place] [address] Tower Foreman: Jovon Zayas MD Hematocrit (Bld) [Volume fraction] 45.7 % Normal 36.3-47.1 [facility] Comment on above: Performed By: #### C P, LIP, CDP #### [address] [place] [address] Tower Foreman: Jovon Zayas MD Hemoglobin (Bld) [Mass/Vol] 14.8 g/dL Normal 11.9-15.1 [facility] Comment on above: Performed By: #### C P, LIP, CDP #### [facility] [address] [place], [place] [id number] Tower Foreman: Jovon Zayas MD Immature granulocytes/100 WBC (Bld) 0 % Normal 0 [facility] Comment on above: Performed By: #### C P, LIP, CDP #### [facility] [address] [place], [place] [id number] Tower Foreman: Jovon Zayas MD Lymphocytes (Bld) [#/Vol] 3.22 10*3/uL Normal 1.10-3.70 [facility] Comment on above: Performed By: #### C P, LIP, CDP #### [address] [place], [facility]83 Tower Foreman: Jovon Zayas MD Lymphocytes/100 WBC (Bld) 30 % Normal 24-43 [facility] Comment on above: Performed By: #### C P, LIP, CDP #### [address] [place], [facility]83 Tower Foreman: Jovon Zayas MD MCH (RBC) [Entitic mass] 30.5 pg Normal 25.2-33.5 [facility] Comment on above: Performed By: #### C P, LIP, CDP #### [address] [place] [id number] Tower Foreman: Jovon Zayas MD MCHC (RBC) [Mass/Vol] 32.4 g/dL Normal 28.4-34.8 [facility] Comment on above: Performed By: #### C P, LIP, CDP #### [address] [place] [address] Tower Foreman: Jovon Zayas MD MCV (RBC) [Entitic vol] 94.2 fL Normal 82.6-102.9 [facility] Comment on above: Performed By: #### C P, LIP, CDP #### [address] [place] [address] Tower Foreman: Jovon Zayas MD Monocytes (Bld) [#/Vol] 0.93 10*3/uL Normal 0.10-1.20 [facility] Comment on above: Performed By: #### C P, LIP, CDP #### [facility] [address] [place], [facility]83 Tower Foreman: Jovon Zayas MD Monocytes/100 WBC (Bld) 9 % Normal 3-12 [facility] Comment on above: Performed By: #### C P, LIP, CDP #### [address] [place], [place] [address] Tower Foreman: Jovon Zayas MD Neutrophil (Seg) 56 % Normal 36-65 [facility] Comment on above: Performed By: #### C P, LIP, CDP #### [address] [place], [facility]83 Tower Foreman: Jovon Zayas MD NRBC Automated 0.0 per 100 WBC Normal 0.0 [facility] Comment on above: Performed By: #### C P, LIP, CDP #### [address] [place], [facility]83 Tower Foreman: Jovon Zayas MD Platelet mean volume (Bld) [Entitic vol] 10.0 fL Normal 8.1-13.5 [facility] Comment on above: Performed By: #### C P, LIP, CDP #### [facility] [address] [place] [address] [place], [facility]83 Tower Foreman: Jovon Zayas MD Platelets (Bld) [#/Vol] 280 10*3/uL Normal 138-453 [facility] Comment on above: Performed By: #### C P, LIP, CDP #### [facility] [address] [place], [facility]83 Tower Foreman: Jovon Zayas MD RBC (Bld) [#/Vol] 4.85 10*6/uL Normal 3.95-5.11 [facility] Comment on above: Performed By: #### C MICHAEL Ozuna CDP #### [facility] [address] [place], [place] [id number] Tower Foreman: Jovon Zayas MD WBC (Bld) [#/Vol] 10.9 10*3/uL Normal 3.5-11.3 [facility] Comment on above: Performed By: #### C MICHAEL Ozuna CDP #### [facility] [address] [place] [address] Tower Foreman: Jovon Zayas MD CT ABDOMEN PELVIS WO CONTRAS Ton 12-06-2021 CT ABDOMEN PELVIS WO CONTRAST EXAMINATION: CT OF THE ABDOMEN AND PELVIS WITHOUT CONTRAST 12/06/2021 7:06 pm TECHNIQUE: CT of the abdomen and pelvis was performed without the administration of intravenous contrast. Multiplanar reformatted images are provided for review. Automated exposure control, iterative reconstruction, and/or weight based adjustment of the mA/kV was utilized to reduce the radiation dose to as low as reasonably achievable. COMPARISON: None. HISTORY: ORDERING SYSTEM PROVIDED HISTORY: right flank pain, dysuria TECHNOLOGIST PROVIDED HISTORY: right flank pain, dysuria Decision Support Exception - unselect if not a suspected or confirmed emergency medical condition->Emergenc y Medical Condition ([place]) Is the patient ?->No FINDINGS: Lower Chest: 5 mm pulmonary nodule in the right lower lobe. No follow-up imaging is recommended per Fleischner society criteria. No acute airspace infiltrate or pleural effusion. Organs: Limited evaluation of the abdominal organs due to lack of intravenous contrast. The liver, gallbladder, spleen, pancreas are normal. There is a 1 cm nodule within the lateral limb of the right adrenal gland with Hounsfield unit measurements of -3 compatible with an adenoma. The left adrenal gland is unremarkable. The kidneys show no evidence of nephrolithiasis or hydronephrosis. No ureteral stones. GI/Bowel: The stomach is normal. Small bowel loops are normal without evidence of obstruction. Colonic loops appear normal without evidence of inflammatory changes or wall thickening. A normal appendix is seen in the right lower quadrant. Pelvis: The urinary bladder is normal. The uterus and adnexa are normal. No free fluid. Peritoneum/Retroper itoneum: The aorta is normal caliber. No lymphadenopathy. Bones/Soft Tissues: No suspicious osseous lesions IMPRESSION: 1. No acute abdominal or pelvic findings. No evidence of nephrolithiasis. 2. 1 cm right adrenal nodule consistent with an adenoma. No follow-up is required per [employer] guidelines Interpreted by: Hank Lloyd Signed by: Hank Lloyd 12/06/21 Final result Normal [facility] CT ABDOMEN PELVIS WO CONTRAS T Additional Contrast? Noneon 12-06-2021 1. No acute abdominal or pelvic findings. No evidence of nephrolithiasis. 2. 1 cm right adrenal nodule consistent with an adenoma. No follow-up is required per [employer] guidelines [facility] RIS CONSOLIDATED EXAMINATION: CT OF THE ABDOMEN AND PELVIS WITHOUT CONTRAST 12/06/2021 7:06 pm TECHNIQUE: CT of the abdomen and pelvis was performed without the administration of intravenous contrast. Multiplanar reformatted images are provided for review. Automated exposure control, iterative reconstruction, and/or weight based adjustment of the mA/kV was utilized to reduce the radiation dose to as low as reasonably achievable. COMPARISON: None. HISTORY: ORDERING SYSTEM PROVIDED HISTORY: right flank pain, dysuria TECHNOLOGIST PROVIDED HISTORY: right flank pain, dysuria Decision Support Exception - unselect if not a suspected or confirmed emergency medical condition->Emergenc y Medical Condition ([place]) Is the patient ?->No FINDINGS: Lower Chest: 5 mm pulmonary nodule in the right lower lobe. No follow-up imaging is recommended per Fleischner society criteria. No acute airspace infiltrate or pleural effusion. Organs: Limited evaluation of the abdominal organs due to lack of intravenous contrast. The liver, gallbladder, spleen, pancreas are normal. There is a 1 cm nodule within the lateral limb of the right adrenal gland with Hounsfield unit measurements of -3 compatible with an adenoma. The left adrenal gland is unremarkable. The kidneys show no evidence of nephrolithiasis or hydronephrosis. No ureteral stones. GI/Bowel: The stomach is normal. Small bowel loops are normal without evidence of obstruction. Colonic loops appear normal without evidence of inflammatory changes or wall thickening. A normal appendix is seen in the right lower quadrant. Pelvis: The urinary bladder is normal. The uterus and adnexa are normal. No free fluid. Peritoneum/Retroper itoneum: The aorta is normal caliber. No lymphadenopathy. Bones/Soft Tissues: No suspicious osseous lesions [facility] RIS CONSOLIDATED Hank Lloyd P - 12/06/2021 EXAMINATION: CT OF THE ABDOMEN AND PELVIS WITHOUT CONTRAST 12/06/2021 7:06 pm TECHNIQUE: CT of the abdomen and pelvis was performed without the administration of intravenous contrast. Multiplanar reformatted images are provided for review. Automated exposure control, iterative reconstruction, and/or weight based adjustment of the mA/kV was utilized to reduce the radiation dose to as low as reasonably achievable. COMPARISON: None. HISTORY: ORDERING SYSTEM PROVIDED HISTORY: right flank pain, dysuria TECHNOLOGIST PROVIDED HISTORY: right flank pain, dysuria Decision Support Exception - unselect if not a suspected or confirmed emergency medical condition->Emergenc y Medical Condition (MA) Is the patient ?->No FINDINGS: Lower Chest: 5 mm pulmonary nodule in the right lower lobe. No follow-up imaging is recommended per Fleischner society criteria. No acute airspace infiltrate or pleural effusion. Organs: Limited evaluation of the abdominal organs due to lack of intravenous contrast. The liver, gallbladder, spleen, pancreas are normal. There is a 1 cm nodule within the lateral limb of the right adrenal gland with Hounsfield unit measurements of -3 compatible with an adenoma. The left adrenal gland is unremarkable. The kidneys show no evidence of nephrolithiasis or hydronephrosis. No ureteral stones. GI/Bowel: The stomach is normal. Small bowel loops are normal without evidence of obstruction. Colonic loops appear normal without evidence of inflammatory changes or wall thickening. A normal appendix is seen in the right lower quadrant. Pelvis: The urinary bladder is normal. The uterus and adnexa are normal. No free fluid. Peritoneum/Retroper itoneum: The aorta is normal caliber. No lymphadenopathy. Bones/Soft Tissues: No suspicious osseous lesions IMPRESSION: 1. No acute abdominal or pelvic findings. No evidence of nephrolithiasis. 2. 1 cm right adrenal nodule consistent with an adenoma. No follow-up is required per [employer] guidelines [employer] Work Phone: Radiology Study observation (narrative) [employer] Phone: CT ABDOMEN PELVIS WO CONTRAS T Additional Contrast? NoneOrdered By: Hank Lloyd on 12-06-2021 ADDY SEGUNDO [facility] Work Phone: Comp Metabolic Profon 2021 (cont.) Normal [facility] Comment on above: Result Comment: Aver age GFR for 20-29 years old: 116 mL/min/1.73sq m Chronic Kidney Disease: <60 mL/min/1.73sq m Kidney failure: <15 mL/min/1.73sq m eGFR calculated using average adult body mass. Additional eGFR calculator available at: http://www.[employer]/multiple_crcl_2011.htm Performed By: #### C P, LIP, CDP #### [facility] [address] [place] [address] [place] [address] Tower Foreman: Jovon Zayas MD Albumin [Mass/Vol] 4.4 g/dL Normal 3.5-5.2 [facility] Comment on above: Performed By: #### C P, LIP, CDP #### [facility] [address] [place], [place] [id number] Tower Foreman: Jovon Zayas MD Albumin/Glob Ratio 1.7 Normal 1.0-2.5 [facility] Comment on above: Performed By: #### C P, LIP, CDP #### [address] [place], [place] [id number] Tower Foreman: Jovon Zayas MD Alkaline Phos 69 U/L Normal 35-104 [facility] Comment on above: Performed By: #### C P, LIP, CDP #### [facility] [address] [place] [address] Tower Foreman: Jovon Zayas MD ALT [Catalytic activity/Vol] 14 U/L Normal 5-33 [facility] Comment on above: Performed By: #### C P, LIP, CDP #### [facility] [address] [place] [address] Tower Foreman: Jovon Zayas MD Anion gap [Moles/Vol] 11 mmol/L Normal 9-17 [facility] Comment on above: Performed By: #### C P, LIP, CDP #### [facility] [address] [place], [place] [id number] Tower Foreman: Jovon Zayas MD AST [Catalytic activity/Vol] 10 U/L Normal <32 [facility] Comment on above: Performed By: #### C P, LIP, CDP #### [facility] [address] [place], [place] [id number] Tower Foreman: Jovon Zayas MD Bilirubin [Mass/Vol] 0.20 mg/dL Low 0.3-1.2 [facility] Comment on above: Performed By: #### C P, LIP, CDP #### [facility] [address] [place], [place] [phone] Tower Foreman: Jovon Zayas MD BUN/CRE Ratio 19 Normal 9-20 [facility] Comment on above: Performed By: #### C P, LIP, CDP #### [facility] [address] [place], [place] [phone] Tower Foreman: Jovon Zayas MD Calcium [Mass/Vol] 9.2 mg/dL Normal 8.6-10.4 [facility] Comment on above: Performed By: #### C P, LIP, CDP #### [facility] [address] [place], [place] [phone] Tower Foreman: Jovon Zayas MD Chloride [Moles/Vol] 104 mmol/L Normal 98-107 [facility] Comment on above: Performed By: #### C P, LIP, CDP #### [facility] [address] [place] [address] Tower Foreman: Jovon Zayas MD CO2 [Moles/Vol] 23 mmol/L Normal 20-31 [facility] Comment on above: Performed By: #### C P, LIP, CDP #### [facility] [address] [place], [place] [phone] Tower Foreman: Jovon Zayas MD Creatinine [Mass/Vol] 0.69 mg/dL Normal 0.50-0.90 [facility] Comment on above: Performed By: #### C P, LIP, CDP #### [facility] [address] [place], [place] [phone] Tower Foreman: Jovon Zayas MD GFR, Amer >60 Normal >60 [facility] Comment on above: Performed By: #### C P, LIP, CDP #### [facility] [address] [place], [place] [phone] Tower Foreman: Jovon Zayas MD GFR,non Amer >60 Normal >60 [facility] Comment on above: Performed By: #### C P, LIP, CDP #### [facility] [address] [place], [place] [phone] Tower Foreman: Jovon Zayas MD Glucose [Mass/Vol] 87 mg/dL Normal 70-99 [facility] Comment on above: Performed By: #### C P, LIP, CDP #### [address] [place], [place] [phone] Tower Foreman: Jovon Zayas MD Potassium [Moles/Vol] 4.3 mmol/L Normal 3.7-5.3 [facility] Comment on above: Performed By: #### C P, LIP, CDP #### [facility] [address] [place], [place] [phone] Tower Foreman: Jovon Zayas MD Protein [Mass/Vol] 7.0 g/dL Normal 6.4-8.3 [facility] Comment on above: Performed By: #### C P, LIP, CDP #### [facility] [address] [place], [place] [phone] Tower Foreman: Jovon Zayas MD Sodium [Moles/Vol] 138 mmol/L Normal 135-144 [facility] Comment on above: Performed By: #### MICHAEL Motley, CDP #### [facility] [address] [place] [address] Tower Foreman: Jovon Zayas MD Staging: Normal [facility] Comment on above: Result Comment: Stag e 1: Some kidney damage normal GFR Stage 2: Mild kidney damage GFR 60-89 Stage 3: Moderate kidney damage GFR 30-59 Stage 4: Severe kidney damage GFR 15-29 Stage 5: Severe kidney damage GFR <15 ESRD - chronic treatment by dialysis or transplant Performed By: #### MICHAEL Motley, CDP #### [facility] [address] [place] [address] Tower Foreman: Jovon Zayas MD Urea nitrogen [Mass/Vol] 13 mg/dL Normal 6-20 [facility] Comment on above: Performed By: #### MICHAEL Motley, CDP #### [facility] [address] [place] [address] Tower Foreman: Jovon Zayas MD Comprehensive Metabolic Pane [facility] 12-06-2021 Albumin [Mass/Vol] 4.4 g/dL 3.5 - 5.2 g/dL [facility] Albumin/Globulin [Mass ratio] 1.7 {ratio} [facility] ALP (Bld) [Catalytic activity/Vol] 69 U/L 35 - 104 U/L [facility] ALT [Catalytic activity/Vol] 14 U/L 5 - 33 U/L [facility] Anion gap [Moles/Vol] 11 mmol/L 9 - 17 mmol/L [facility] AST [Catalytic activity/Vol] 10 U/L <32 [facility] Bilirubin [Mass/Vol] 0.20 mg/dL Low 0.3 - 1 .2 mg/dL [facility] Calcium [Mass/Vol] 9.2 mg/dL 8.6 - 10. 4 mg/dL [facility] Chloride [Moles/Vol] 104 mmol/L 98 - 10 7 mmol/L [facility] CO2 [Moles/Vol] 23 mmol/L 20 - 31 mmol/L [facility] Creatinine [Mass/Vol] 0.69 mg/dL 0.50 - 0.90 mg/dL [facility] Free PSA/Total PSA [Mass fraction] 7.0 g/dL 6.4 - 8.3 g/dL [facility] GFR >60 >60 mL/min [facility] GFR Non- >60 >60 mL/min [facility] Glucose [Mass/Vol] 87 mg/dL 70 - 99 mg/dL [facility] Interpretation and review of laboratory results Abnormal [facility] Potassium [Moles/Vol] 4.3 mmol/L 3.7 - 5.3 mmol/L [facility] Sodium [Moles/Vol] 138 mmol/L 135 - 144 mmol/L [facility] Urea nitrogen (BldV) [Mass/Vol] 13 mg/dL 6 - 20 mg/dL [facility] Urea nitrogen/Creatinine (Bld) [Mass ratio] 19 [facility] HCG, ,Urineon 12-06 Beta HCG ( test) Ql (U) Negative Normal NEG [facility] Comment on above: Result Comment: Spec imens with hCG levels near the threshold of the test (25 mIU/mL) may give a negative or indeterminate result. In such cases, another test should be performed with a new specimen in 48-72 hours. If early is suspected clinically in this setting, correlation with quantitative serum b-hCG level is suggested. [facility] has confirmed the use of plasma for this test. This has not been cleared or approved by the U.S. Food and Drug Administration. The FDA has determined that such clearance is not necessary. Performed By: #### U HCG, UAMIC #### [facility] [address] [place] [address] Tower Foreman: Jovon Zayas MD Laboratory - Chemistry and C hemistry - challengeon 12-06-2021 GFR/1.73 sq M.predicted MDRD (S/P/Bld) [Vol rate/Area] [facility] Comment on above: Average GFR for 20-2 9 years old: 116 mL/min/1.73sq m Chronic Kidney Disease: <60 mL/min/1.73sq m Kidney failure: <15 mL/min/1.73sq m eGFR calculated using average adult body mass. Additional eGFR calculator available at: http://www.[employer]/multiple_crcl_2012.htm Stage 1: Some kidney damage normal GFR Stage 2: Mild kidney damage GFR 60-89 Stage 3: Moderate kidney damage GFR 30-59 Stage 4: Severe kidney damage GFR 15-29 Stage 5: Severe kidney damage GFR <15 ESRD - chronic treatment by dialysis or transplant Lipaseon 12-06-2021 Lipase [Catalytic activity/Vol] 18 U/L Normal - [facility] Comment on above: Performed By: #### C P, LIP, CDP #### [facility] [address] [place] [address] Tower Foreman: Jovon Zayas MD Lipase [Catalytic activity/Vol] 18 U/L - 60 U/L [facility] No Panel Informationon 12-06 [facility] , Urineon 2 Beta HCG ( test) Ql (U) Negative NEGATIVE [facility] Comment on above: Specimens with hCG l evels near the threshold of the test (25 mIU/mL) may give a negative or indeterminate result. In such cases, another test should be performed with a new specimen in 48-72 hours. If early is suspected clinically in this setting, correlation with quantitative serum b-hCG level is suggested. [facility] the use of plasma for this test. This has not been cleared or approved by the U.S. Food and Drug Administration. The FDA has determined that such clearance is not necessary. [facility] Urinalysis w/ Microon 2021 ----- Normal [facility] Comment on above: Performed By: #### U HCG, UAMIC #### [facility] [address] [place] [address] Tower Foreman: Jovon Zayas MD Bacteria 3+ Abnormal NONE [facility] Comment on above: Performed By: #### U HCG, UAMIC #### [facility] [address] [place], [place] [phone] Tower Foreman: Jovon Zayas MD Bilirubin, SemiQt,Ur Negative Normal NEG [facility] Comment on above: Performed By: #### U HCG, UAMIC #### [facility] [address] [place], [place] [address] Tower Foreman: Jovon Zayas MD Blood, Urine 3+ Abnormal NEG [facility] Comment on above: Performed By: #### U HCG, UAMIC #### [facility] [address] [place], [place] [phone] Tower Foreman: Jovon Zayas MD Clarity (U) Clear Normal CLEAR [facility] Comment on above: Performed By: #### U HCG, UAMIC #### [facility] [address] [place], [place] [phone] Tower Foreman: Jovon Zayas MD Color (U) Yellow Normal YEL [facility] Comment on above: Performed By: #### U HCG, UAMIC #### [facility] [address] [place], [place] [phone] Tower Foreman: Jovon Zayas MD Epithelial cells LM Ql (Urine sed) 2 TO 5 Normal 0-25 [facility] Comment on above: Performed By: #### U HCG, UAMIC #### [facility] [address] [place], [place] [phone] Tower Foreman: Jovon Zayas MD Glucose Ql (U) Negative Normal NEG [facility] Comment on above: Performed By: #### U HCG, UAMIC #### [facility] [address] [place], [place] [address]83 Tower Foreman: Jovon Zayas MD Ketones Ql (U) Negative Normal NEG [facility] Comment on above: Performed By: #### U HCG, UAMIC #### [facility] [address] [place], [place] [phone] Tower Foreman: Jovon Zayas MD Leukocyte esterase Test strip Ql (U) LARGE Abnormal NEG [facility] Comment on above: Performed By: #### U HCG, UAMIC #### [facility] [address] [place], [place] [phone] Tower Foreman: Jovon Zayas MD Nitrite,Ur Positive Abnormal NEG [facility] Comment on above: Performed By: #### U HCG, UAMIC #### [facility] [address] [place], [place] [address] Tower Foreman: Jovon Zayas MD PH,Ur 6.0 Normal 5.0-9.0 [facility] Comment on above: Performed By: #### U HCG, UAMIC #### [facility] [address] [place], [place] [phone] Tower Foreman: Jovon Zayas MD Protein Ql (U) Negative Normal NEG [facility] Comment on above: Performed By: #### U HCG, UAMIC #### [facility] [address] [place], [place] [phone] Tower Foreman: Jovon Zayas MD Spec. [place],Ur 1.015 Normal 1.010-1.020 [facility] Comment on above: Performed By: #### U HCG, UAMIC #### [facility] [address] [place], [place] [phone] Tower Foreman: Jovon Zayas MD Urine RBC's 5 TO 10 Normal 0-2 [facility] Comment on above: Performed By: #### U HCG, UAMIC #### [facility] [address] [place], [place] [phone] Tower Foreman: Jovon Zayas MD Urine WBC's 50 TO 100 Normal 0-5 [facility] Comment on above: Performed By: #### U HCG, UAMIC #### [facility] [address] [place] [address] Tower Foreman: Jovon Zayas MD Urobilinogen,Ur Normal Normal NORM [facility] Comment on above: Performed By: #### U HCG, UAMIC #### [facility] [address] [place] [address] Tower Foreman: Jovon Zayas MD Urinalysis with Microscopico n 12-06-2021 - [facility] Bacteria, UA 3+ Abnormal None [facility] Bilirubin Urine Negative NEGATIVE [facility] Color, UA Yellow Yellow [facility] Epithelial Cells UA 2 TO 5 [facility] Glucose, Ur Negative NEGATIVE [facility] Interpretation and review of laboratory results Abnormal [facility] Ketones Ql (U) Negative [facility] Leukocyte esterase Test strip Ql (U) LARGE Abnormal NEGATIVE [facility] Nitrite, Urine Positive Abnormal [facility] pH, UA 6.0 [facility] Protein, UA Negative NEGATIVE [facility] RBC, UA 5 TO 10 [facility] Specific [place], UA 1.015 [facility] Turbidity UA Clear Clear [facility] Urine Hgb 3+ Abnormal NEGATIVE [facility] Urobilinogen, Urine Normal Normal [facility] WBC, UA 50 TO 100 [facility] HCG, ,Urineon 10-16 Beta HCG ( test) Ql (U) Negative Normal NEG [facility] Comment on above: Result Comment: Spec imens with hCG levels near the threshold of the test (25 mIU/mL) may give a negative or indeterminate result. In such cases, another test should be performed with a new specimen in 48-72 hours. If early is suspected clinically in this setting, correlation with quantitative serum b-hCG level is suggested. [facility] has confirmed the use of plasma for this test. This has not been cleared or approved by the U.S. Food and Drug Administration. The FDA has determined that such clearance is not necessary. Performed By: #### U HCG, UAX, UMICAO #### [facility] [address] [place] [address] [place] [address] Tower Foreman: Jovon Zayas MD UA w/Reflex Cultureon 2021 Bilirubin, SemiQt,Ur Negative Normal NEG [facility] Comment on above: Performed By: #### U HCG, UAX, UMICAO #### [facility] [address] [place] [address] [place], [place] [phone] Tower Foreman: Jovon Zayas MD Blood, Urine Negative Normal NEG [facility] Comment on above: Performed By: #### U HCG, UAX, UMICAO #### [address] [place], [place] [address] Tower Foreman: Jovon Zayas MD Clarity (U) Clear Normal CLEAR [facility] Comment on above: Performed By: #### U HCG, UAX, UMICAO #### [facility] [address] [place] [address] [place], [place] [phone] Tower Foreman: Jovon Zayas MD Color (U) Yellow Normal YEL [facility] Comment on above: Performed By: #### U HCG, UAX, UMICAO #### [facility] [address] [place] [address] [place], [place] [phone] Tower Foreman: Jovon Zayas MD Glucose Ql (U) Negative Normal NEG [facility] Comment on above: Performed By: #### U HCG, UAX, UMICAO #### [facility] [address] [place] [address] Tower Foreman: Jovon Zayas MD Ketones Ql (U) TRACE Abnormal NEG [facility] Comment on above: Performed By: #### U HCG, UAX, UMICAO #### [facility] [address] [place] [address] [place] [address] Tower Foreman: Jovon Zayas MD Leukocyte esterase Test strip Ql (U) Negative Normal NEG [facility] Comment on above: Performed By: #### U HCG, UAX, UMICAO #### [facility] [address] [place], [place] [phone] Tower Foreman: Jovon Zayas MD Nitrite,Ur Negative Normal NEG [facility] Comment on above: Performed By: #### U HCG, UAX, UMICAO #### [facility] [address] [place] [address] Tower Foreman: Jovon Zayas MD PH,Ur 6.0 Normal 5.0-9.0 [facility] Comment on above: Performed By: #### U HCG, UAX, UMICAO #### [facility] [address] [place] [address] Tower Foreman: Jovon Zayas MD Protein Ql (U) Negative Normal NEG [facility] Comment on above: Performed By: #### U HCG, UAX, UMICAO #### [facility] [address] [place] [address] Tower Foreman: Jovon Zayas MD Spec. [place],Ur >1.030 High 1.010-1.020 [facility] Comment on above: Performed By: #### U HCG, UAX, UMICAO #### [facility] [address] [place], [facility] Tower Foreman: Jovon Zayas MD Urobilinogen,Ur Normal Normal NORM [facility] Comment on above: Performed By: #### U HCG, UAX, UMICAO #### [facility] [address] [place] [address] Tower Foreman: Jovon Zayas MD Urinalysis,Microon 2 ----- Normal [facility] Comment on above: Performed By: #### U HCG, UAX, UMICAO #### [facility] [address] [place] [address] Tower Foreman: Jovon Zayas MD Bacteria 1+ Abnormal NONE [facility] Comment on above: Performed By: #### U HCG, UAX, UMICAO #### [facility] [address] [place], [place] [phone] Tower Foreman: Jovon Zayas MD Epithelial cells LM Ql (Urine sed) 5 TO 10 Normal 0-25 [facility] Comment on above: Performed By: #### U HCG, UAX, UMICAO #### [facility] [address] [place] [address] Tower Foreman: Jovon Zaays MD Urine RBC's 0 TO 2 Normal 0-2 [facility] Comment on above: Performed By: #### U HCG, UAX, UMICAO #### [facility] [address] [place], [place] [address] Tower Foreman: Jovon Zayas MD Urine WBC's 0 TO 2 Normal 0-5 [facility] Comment on above: Performed By: #### U HCG, UAX, UMICAO #### [facility] [address] [place] [address] Tower Foreman: Jovon Zayas MD HCG, ,Urineon 01-16 Beta HCG ( test) Ql (U) Negative Normal NEG [facility] Comment on above: Result Comment: Spec imens with hCG levels near the threshold of the test (25 mIU/mL) may give a negative or indeterminate result. In such cases, another test should be performed with a new specimen in 48-72 hours. If early is suspected clinically in this setting, correlation with quantitative serum b-hCG level is suggested. [facility] has confirmed the use of plasma for this test. This has not been cleared or approved by the U.S. Food and Drug Administration. The FDA has determined that such clearance is not necessary. Performed By: #### U HCG, UAMIC #### [facility] [address] [place] [address] Tower Foreman: Jovon Zayas MD , UrineOrdered By: Zak Kent on 01-16-2021 Beta HCG ( test) Ql (U) Negative NEGATIVE [facility] Phone: Comment on above: Specimens with hCG l evels near the threshold of the test (25 mIU/mL) may give a negative or indeterminate result. In such cases, another test should be performed with a new specimen in 48-72 hours. If early is suspected clinically in this setting, correlation with quantitative serum b-hCG level is suggested. [facility] has confirmed the use of plasma for this test. This has not been cleared or approved by the U.S. Food and Drug Administration. The FDA has determined that such clearance is not necessary. [employer] Phone: Urinalysis w/ Microon 2020 ----- Normal [facility] Comment on above: Performed By: #### U HCG, UAMIC #### [facility] [address] [place] [address] Tower Foreman: Jovon Zayas MD Bilirubin, SemiQt,Ur Negative Normal NEG [facility] Comment on above: Performed By: #### U HCG, UAMIC #### [facility] [address] [place] [address] Tower Foreman: Jovon Zayas MD Blood, Urine Negative Normal NEG [facility] Comment on above: Performed By: #### U HCG, UAMIC #### [facility] [address] [place] [address] Tower Foreman: Jovon Zayas MD Clarity (U) CLEAR Normal CLEAR [facility] Comment on above: Performed By: #### U HCG, UAMIC #### [facility] [address] [place] [address] Tower Foreman: Jovon Zayas MD Color (U) YELLOW Normal YEL [facility] Comment on above: Performed By: #### U HCG, UAMIC #### [facility] [address] [place] [address] [place], [place] [phone] Tower Foreman: Jovon Zayas MD Epithelial cells LM Ql (Urine sed) 0 TO 2 Normal 0-25 [facility] Comment on above: Performed By: #### U HCG, UAMIC #### [facility] [address] [place], [place] [phone] Tower Foreman: Jovon Zayas MD Glucose Ql (U) Negative Normal NEG [facility] in Hospital Comment on above: Performed By: #### U HCG, UAMIC #### [address] [place], [place] [id number] Tower Foreman: Jovon Zaays MD Ketones Ql (U) Negative Normal NEG [facility] Comment on above: Performed By: #### U HCG, UAMIC #### [facility] [address] [place] [address] [place], [place] [phone] Tower Foreman: Jovon Zayas MD Leukocyte esterase Test strip Ql (U) Negative Normal NEG [facility] Comment on above: Performed By: #### U HCG, UAMIC #### [address] [place], [place] [phone] Tower Foreman: Jovon Zayas MD Nitrite,Ur Negative Normal NEG [facility] Comment on above: Performed By: #### U HCG, UAMIC #### [facility] [address] [place] [address] [place], [place] [phone] Tower Foreman: Jovon Zayas MD PH,Ur 6.5 Normal 5.0-9.0 [facility] Comment on above: Performed By: #### U HCG, UAMIC #### [facility] [address] [place] [address] [place], [place] [phone] Tower Foreman: Jovon Zayas MD Protein Ql (U) Negative Normal NEG [facility] Comment on above: Performed By: #### U HCG, UAMIC #### [facility] [address] [place], [place] [phone] Tower Foreman: Jovon Zayas MD Spec. [place],Ur 1.025 High 1.010-1.020 [facility] Comment on above: Performed By: #### U HCG, UAMIC #### [facility] [address] [place], [place] [phone] Tower Foreman: Jovon Zayas MD Urine RBC's 0 TO 2 Normal 0-2 [facility] Comment on above: Performed By: #### U HCG, UAMIC #### [address] [place], [place] [phone] Tower Foreman: Jovon Zayas MD Urine WBC's None Normal 0-5 [facility] Comment on above: Performed By: #### U HCG, UAMIC #### [facility] [address] [place] [address] Dr[place], [place] [phone] Tower Foreman: Jovon Zayas MD Urobilinogen,Ur Normal Normal NORM [facility] Comment on above: Performed By: #### U HCG, UAMIC #### [address] [place] [address] Tower Foreman: Jovon Zayas MD Amorphous sediment LM Ql (Urine sed) NOT REPORTED Normal [facility] Comment on above: Performed By: #### U HCG, UAMIC #### [facility] [address] [place] [address] [place], [place] [phone] Tower Foreman: Jovon Zayas MD Bacteria NOT REPORTED Normal [facility] Comment on above: Performed By: #### U HCG, UAMIC #### [address] [place], [place] [phone] Tower Foreman: Jovon Zayas MD Casts NOT REPORTED Normal [facility] Comment on above: Performed By: #### U HCG, UAMIC #### [facility] [address] [place], [place] [phone] Tower Foreman: Jovon Zayas MD Comment NOT REPORTED Normal [facility] Comment on above: Performed By: #### U HCG, UAMIC #### [facility] [address] [place], [place] [phone] Tower Foreman: Jovon Zayas MD Crystals LM Nom (Urine sed) NOT REPORTED Normal NONE [facility] Comment on above: Performed By: #### U HCG, UAMIC #### [facility] [address] [place], [place] [phone] Tower Foreman: Jovon Zayas MD Epithelial, Renal NOT REPORTED Normal 0 [facility] Comment on above: Performed By: #### U HCG, UAMIC #### [facility] [address] [place] [address] Tower Foreman: Jovon Zayas MD Mucus Strands NOT REPORTED Normal NONE [facility] Comment on above: Performed By: #### U HCG, UAMIC #### [facility] [address] [place], [place] [phone] Tower Foreman: Jovon Zayas MD Other Observations NOT REPORTED Normal NREQ [facility] Comment on above: Performed By: #### U HCG, UAMIC #### [facility] [address] [place], [place] [phone] Tower Foreman: Jovon Zayas MD Trichomonas NOT REPORTED Normal NONE [facility] Comment on above: Performed By: #### U HCG, UAMIC #### [facility] [address] [place], [place] [phone] Tower Foreman: Jovon Zayas MD Yeast NOT REPORTED Normal [facility] Comment on above: Performed By: #### U HCG, UAMIC #### [facility] [address] [place] [address] Tower Foreman: Jovon Zayas MD Urinalysis with MicroscopicO rdered By: aZk Kent on 01-16-2021 - [facility] [employer] Work Phone: Amorphous, UA NOT REPORTED None [facility] Work Phone: Bacteria, UA NOT REPORTED None [facility] Work Phone: Bilirubin Urine Negative NEGATIVE [facility] Work Phone: Casts UA NOT REPORTED /LPF [facility] [employer] Work Phone: Color, UA YELLOW YELLOW [facility] [employer] Work Phone: Crystals, UA NOT REPORTED None /HPF [facility] Work Phone: Epithelial Cells UA 0 TO 2 [facility] Work Phone: Glucose, Ur Negative NEGATIVE [facility] [employer] Work Phone: Interpretation and review of laboratory results Abnormal [facility] [employer] Work Phone: Ketones Ql (U) Negative NEGATIVE [facility] Work Phone: Leukocyte esterase Test strip Ql (U) Negative NEGATIVE [facility] [place] Work Phone: Mucus, UA NOT REPORTED None [facility] [place] Work Phone: Nitrite, Urine Negative NEGATIVE [facility] Work Phone: Other Observations UA NOT REPORTED NOT REQ. M [facility] [employer] Work Phone: pH, UA 6.5 [facility] [employer] Work Phone: Protein, UA Negative NEGATIVE [facility] [place] Work Phone: RBC, UA 0 TO 2 [facility] Work Phone: Renal Epithelial, UA NOT REPORTED 0 /HPF [facility] Work Phone: Specific [place], UA 1.025 [facility] Work Phone: Trichomonas, UA NOT REPORTED None [facility] Work Phone: Turbidity UA CLEAR CLEAR [facility] Work Phone: Urinalysis Comments NOT REPORTED [facility] [employer] Work Phone: Urine Hgb Negative NEGATIVE [facility] Work Phone: Urobilinogen, Urine Normal Normal [facility] Work Phone: WBC, UA None [facility] Work Phone: Yeast, UA NOT REPORTED None [facility] Work Phone: [facility] Work Phone: CBC Auto DifferentialOrdered By: Rodolfo Mckenzie on 11-26-2020 [employer] # 0.39 [employer] [facility] Work Phone: Absolute Immature Granulocyte 0.03 [facility] Work Phone: [employer] Lymph # 3.68 [employer] He [facility] Work Phone: [employer] Gilchrist # 0.82 [employer] [facility] Work Phone: Basophils (Bld) [#/Vol] 0.10 10*3/uL [employer] Work Phone: Basophils/100 WBC (Bld) 1 % 0 - 2 % M [facility] [employer] Work Phone: Differential Type NOT REPORTED [facility] Work Phone: Eosinophils/100 WBC (Bld) 3 % 1 - 4 % [facility] Work Phone: Hematocrit (Bld) [Volume fraction] 48.0 % High 36.3 - 47.1 % [facility] Work Phone: Hemoglobin.gastrointest inal spec 1 Ql (Stl) 15.5 g/dL High 11.9 - 15.1 g/dL [employer] Work Phone: Immature granulocytes/100 WBC (Bld) 0 % 0 [facility] Work Phone: Interpretation and review of laboratory results Abnormal [employer] Phone: Lymphocytes/100 WBC (Bld) 32 % 24 - 43 % [facility] Phone: MCH (RBC) [Entitic mass] 29.8 pg 25.2 - 33.5 pg [employer] Phone: MCHC (RBC) [Mass/Vol] 32.3 g/dL 28.4 - 34.8 g/dL [facility] Phone: MCV (RBC) [Entitic vol] 92.1 fL 82.6 - 102.9 fL [facility] Phone: Monocytes/100 WBC (Bld) 7 % 3 - 12 % [facility] Phone: NRBC Automated 0.0 0.0 per 100 WBC [facility] Phone: Platelet distribution width (Bld) [Ratio] 13.5 % 11.8 - 14.4 % [facility] Phone: Platelet Estimate NOT REPORTED [facility] Phone: Platelet mean volume (Bld) [Entitic vol] 9.5 fL 8.1 - 13.5 fL [employer] Phone: Platelets (Bld) [#/Vol] 264 10*3/uL [facility] Phone: RBC (Bld) [#/Vol] 5.21 10*6/uL High 3.95 - 5.1 1 m/uL [facility] Phone: RBC (Bld) [#/Vol] NOT REPORTED [facility] Phone: Segmented neutrophils/100 WBC (Bld) 57 % 36 - 65 % [facility] Phone: Segs [employer] 6.51 [employer] Work Phone: WBC (Bld) [#/Vol] 11.5 10*3/uL High [employer] Phone: WBC (Bld) [#/Vol] NOT REPORTED [employer] Phone: [employer] Phone: Comprehensive Metabolic Pane l w/ Reflex to MGOrdered By: Rodolfo Mckenzie on 11-26-2020 Albumin [Mass/Vol] 4.2 g/dL 3.5 - 5.2 g/dL [employer] Phone: Albumin/Globulin [Mass ratio] 1.4 {ratio} [employer] Phone: ALP (Bld) [Catalytic activity/Vol] 94 U/L 35 - 104 U/L [employer] Phone: ALT [Catalytic activity/Vol] 11 U/L 5 - 33 U/L [employer] Phone: Anion gap [Moles/Vol] 11 mmol/L 9 - 17 mmol/L [employer] Phone: AST [Catalytic activity/Vol] 11 U/L <32 [employer] Phone: Bilirubin [Mass/Vol] 0.33 mg/dL 0.3 - 1 .2 mg/dL [employer] Phone: Calcium [Mass/Vol] 8.9 mg/dL 8.6 - 10. 4 mg/dL [employer] Phone: Chloride [Moles/Vol] 105 mmol/L 98 - 10 7 mmol/L [employer] Phone: CO2 [Moles/Vol] 23 mmol/L 20 - 31 mmol/L [employer] Phone: Creatinine [Mass/Vol] 0.54 mg/dL 0.50 - 0.90 mg/dL [employer] Phone: Free PSA/Total PSA [Mass fraction] 7.2 g/dL 6.4 - 8.3 g/dL [employer] Phone: GFR >60 >60 mL/min [employer] Phone: GFR Non- >60 >60 mL/min [employer] Phone: Glucose [Mass/Vol] 87 mg/dL 70 - 99 mg/dL [employer] Phone: Potassium [Moles/Vol] 4.1 mmol/L 3.7 - 5.3 mmol/L [employer] Phone: Sodium [Moles/Vol] 139 mmol/L 135 - 144 mmol/L [employer] Phone: Urea nitrogen (BldV) [Mass/Vol] 10 mg/dL 6 - 20 mg/dL [employer] Phone: Urea nitrogen/Creatinine (Bld) [Mass ratio] 19 [employer] Phone: HCG Qualitative, SerumOrdere d By: Rodolfo Mckenzie on 11-26-2020 hCG Qual Negative NEGATIVE [employer] Phone: Comment on above: Specimens with hCG l evels near the threshold of the test (25 mIU/mL) may give a negative or indeterminate result. In such cases, another test should be performed with a new specimen in 48-72 hours. If early is suspected clinically in this setting, correlation with quantitative serum b-hCG level is suggested. [facility] has confirmed the use of plasma for this test. This has not been cleared or approved by the U.S. Food and Drug Administration. The FDA has determined that such clearance is not necessary. [employer] Phone: Laboratory - Chemistry and C hemistry - challengeOrdered By: Rodolfo Mckenzie on 11-26-2020 GFR/1.73 sq M.predicted MDRD (S/P/Bld) [Vol rate/Area] [employer] Phone: Comment on above: Average GFR for 20-2 9 years old: 116 mL/min/1.73sq m Chronic Kidney Disease: <60 mL/min/1.73sq m Kidney failure: <15 mL/min/1.73sq m eGFR calculated using average adult body mass. Additional eGFR calculator available at: http://www.[employer]/multiple_crcl_2012.htm Stage 1: Some kidney damage normal GFR Stage 2: Mild kidney damage GFR 60-89 Stage 3: Moderate kidney damage GFR 30-59 Stage 4: Severe kidney damage GFR 15-29 Stage 5: Severe kidney damage GFR <15 ESRD - chronic treatment by dialysis or transplant LipaseOrdered By: Nikki on 11-26-2020 Lipase [Catalytic activity/Vol] 13 U/L 13 - 60 U/L [employer] Phone: No Panel InformationOrdered By: Rodolfo Mckenzie on 11-26-2020 [employer] Phone: CBC AUTO DIFFon 06-13-2019 Basophils (Bld) [#/Vol] 0.0 103/ul Normal 0.0-0.1 [facility] Comment on above: Performed By: #### C BC #### [facility] [address] [place], [place] [address] Linda Angeline Basophils/100 WBC (Bld) 0.5 % Normal 0.2-2.0 [facility] Comment on above: Performed By: #### C BC #### [facility] [address] [place], [place] [address] Linda Angeline Eosinophils (Bld) [#/Vol] 0.3 103/ul Normal 0.0-0.7 [facility] Comment on above: Performed By: #### C BC #### [facility] [address] [place], [place] [address] Linda Angeline Eosinophils/100 WBC (Bld) 3.2 % Normal 0.9-7.0 [facility] Comment on above: Performed By: #### C BC #### [facility] [address] [place], [place] [address] Linda Angeline Erythrocyte distribution width (RBC) [Ratio] 13.0 % Normal 11.0-15.0 [facility] Comment on above: Performed By: #### C BC #### [facility] [address] [place] [id number] Linda Angeline Hematocrit (Bld) [Volume fraction] 48.1 % Critically high 36.0-48.0 [facility] Comment on above: Performed By: #### C BC #### [facility] [address] [place], [place] [address] Linda Angeline Hemoglobin (Bld) [Mass/Vol] 15.8 g/dL Normal 12.0-16.0 [facility] Comment on above: Performed By: #### C BC #### [facility] [address] [place], [place] [address] Linda Angeline IG # 0.02 10e3/ul Normal 0.00-0.03 [facility] Comment on above: Performed By: #### C BC #### [facility] [address] [place] [address] Linda Angeline IG % 0.2 % Normal 0.0-0.5 [facility] Comment on above: Performed By: #### C BC #### [facility] [address] [place], [place] [address] Linda Angeline Lymphocytes (Bld) [#/Vol] 2.0 103/ul Normal 1.2-3.8 [facility] Comment on above: Performed By: #### C BC #### [facility] [address] [place], [place] [address] Linda Angeline Lymphocytes/100 WBC (Bld) 24.0 % Normal 20.5-60.0 [facility] Comment on above: Performed By: #### C BC #### [facility] [address] [place], [place] [address] Lindaambika Carmichaelen MANUAL DIFF REQ NO Normal [facility] Comment on above: Performed By: #### C BC #### [facility] [address] [place], [place] [address] Linda Angeline MCH (RBC) [Entitic mass] 29.6 pg Normal 26.7-34.0 [facility] Comment on above: Performed By: #### C BC #### [facility] [address] [place], [place] [address] Linda Angeline MCHC (RBC) [Mass/Vol] 32.8 g/dL Normal 29.9-35.2 [facility] Comment on above: Performed By: #### C BC #### [facility] [address] [place] [address] Linda Angeline MCV (RBC) [Entitic vol] 90.1 fL Normal 81.0-99.0 [facility] Comment on above: Performed By: #### C BC #### [facility] [address] [place] [address] Linda Angeline Monocytes (Bld) [#/Vol] 0.5 103/ul Normal 0.3-0.8 [facility] Comment on above: Performed By: #### C BC #### [facility] [address] [place] [address] Linda Angeline Monocytes/100 WBC (Bld) 5.5 % Normal 1.7-12.0 [facility] Comment on above: Performed By: #### C BC #### [facility] [address] [place] [address] Linda Angeline Neutrophils (Bld) [#/Vol] 5.6 103/ul Normal 1.4-6.5 [facility] Comment on above: Performed By: #### C BC #### [facility] [address] [place] [address] Linda Angeline Neutrophils/100 WBC (Bld) 66.6 % Normal 43.0-75.0 [facility] Comment on above: Performed By: #### C BC #### [facility] [address] [place] [address] Linda Angeline Platelet mean volume (Bld) [Entitic vol] 10.1 fL Normal 9.5-13.5 [facility] Comment on above: Performed By: #### C BC #### [facility] [address] [place] [address] Linda Angeline Platelets (Bld) [#/Vol] 157 103/ul Normal 150-450 [facility] Comment on above: Performed By: #### C BC #### [facility] [address] [place], [place] [address] Linda Marcus RBC (Bld) [#/Vol] 5.34 106/ul Normal 4.20-5.40 [facility] Comment on above: Performed By: #### C BC #### [facility] [address] [place], [place] [address] Lindaambiak Marcus WBC (Bld) [#/Vol] 8.4 103/ul Normal 4.0-11.0 [facility] Comment on above: Performed By: #### C BC #### [facility] [address] [place], [place] [address] Linda Marcus LIPASEon 06-13-2019 Lipase [Catalytic activity/Vol] 69.0 U/L Normal 23.0-300.0 [facility] Comment on above: Performed By: #### L IPA, CMP #### [facility] [address] [place], [place] [address] Linda Marcus MONOon 06-13-2019 Monocytes (Bld) [#/Vol] Negative Normal NEGATIVE T [facility] Comment on above: Performed By: #### M ARIANE #### [facility] [address] [place], [place] [address] Lindaambika Marcus PREG HCG QUALon 06-13-2019 , QUAL Negative Normal NEGATIVE [facility] Comment on above: Performed By: #### P REG #### [facility] [address] [place], [place] [address] Linda Marcus PROF 14(COMP METB)on 020 Albumin [Mass/Vol] 3.7 g/dL Normal 3.5-5.0 [facility] Comment on above: Performed By: #### L IPA, CMP #### [facility] [address] [place], [place] [address] Linda Angeline Albumin/Globulin [Mass ratio] 1.1 {ratio} Normal [facility] Comment on above: Performed By: #### L IPA, CMP #### [facility] [address] [place], [place] [address] Linda Angeline ALP [Catalytic activity/Vol] 87 U/L Normal 38-126 [facility] Comment on above: Performed By: #### L IPA, CMP #### [facility] [address] [place] [address] Linda Angeline ALT [Catalytic activity/Vol] 20 U/L Normal 9-52 [facility] Comment on above: Performed By: #### L IPA, CMP #### [facility] [address] [place] [address] Linda Angeline Anion gap [Moles/Vol] 10.8 mmol/L Normal [facility] Comment on above: Performed By: #### L IPA, CMP #### [facility] [address] [place] [address] Linda Angeline AST [Catalytic activity/Vol] 15 U/L Normal 14-36 [facility] Comment on above: Performed By: #### L IPA, CMP #### [facility] [address] [place] [address] Linda Angeline Bilirubin Ql (U) 0.3 mg/dL Normal 0.2-1.3 [facility] Comment on above: Performed By: #### L IPA, CMP #### [facility] [address] [place] [address] Linda Angeline Calcium [Mass/Vol] 8.4 mg/dL Normal 8.4-10.2 [facility] Comment on above: Performed By: #### L IPA, CMP #### [facility] [address] [place] [address] Linda Angeline Chloride [Moles/Vol] 106 mmol/L Normal 98-107 [facility] Comment on above: Performed By: #### L IPA, CMP #### [facility] [address] [place] [address] Linda Angeline CO2 [Moles/Vol] 24.9 mmol/L Normal 22.0-30.0 [facility] Comment on above: Performed By: #### L IPA, CMP #### [facility] [address] [place] [address] Linda Angeline Creatinine [Mass/Vol] 0.72 mg/dL Normal 0.52-1.04 [facility] Comment on above: Performed By: #### L IPA, CMP #### [facility] [address] [place] [address] Linda Angeline EGFR-AF BOLIVIAN >60 Normal >=60 [facility] Comment on above: Performed By: #### L IPA, CMP #### [facility] [address] [address] Linda Angeline EGFR-NON AF BOLIVIAN >60 Normal >=60 [facility] Comment on above: Performed By: #### L IPA, CMP #### [facility] [address] [address] Linda Angeline Globulin (S) [Mass/Vol] 3.5 g/dL Normal T [facility] Comment on above: Performed By: #### L IPA, CMP #### [facility] [address] [place], [place] [address] Linda Angeline Glucose [Mass/Vol] 100 mg/dL Normal 74-106 [facility] Comment on above: Performed By: #### L IPA, CMP #### [facility] [address] [place], [place] [address] Linda Angeline Potassium [Moles/Vol] 3.7 mmol/L Normal 3.4-5.0 [facility] Comment on above: Performed By: #### L IPA, CMP #### [facility] [address] [place], [place] [address] Linda Angeline Protein [Mass/Vol] 7.2 g/dL Normal 6.1-8.2 [facility] Comment on above: Performed By: #### L IPA, CMP #### [facility] [address] [address] Linda Angeline Sodium [Moles/Vol] 138 mmol/L Normal 137-145 [facility] Comment on above: Performed By: #### L IPA, CMP #### [facility] [address] [address] Linda Angeline Urea nitrogen [Mass/Vol] 13.0 mg/dL Normal 7.0-17.0 [facility] Comment on above: Performed By: #### L IPA, CMP #### [facility] [address] [place], [place] [address] Linda Marcus Urea nitrogen/Creatinine [Mass ratio] 18.1 mg/mg Normal [facility] [facility] Comment on above: Performed By: #### L IPA, CMP #### [facility] [address], [place] [address] Linda Marcus XR ABD FLAT UP/PA Yary 06-13 XR ABD FLAT UP/PA CH Patient: JOHN YAÑEZ Exam Date: 06/13/2019 : 1995 Gender:F Ordering : TOMY HUITRON Admission #: [id number] Family : DR JUDY BOOTH . Order #: [id number] CLICK HERE TO VIEW EXAM RADIOLOGY REPORT PROCEDURE: RADIOGRAPH ABDOMEN FLAT/UPRIGHT AND PA CHEST COMPARISON: XR CHEST 2 V, 03/08/2017. INDICATIONS: Acute bilateral upper quadrant pain, nausea, vomiting, cough, congestion, fever for 2 weeks FINDINGS: LUNGS: No infiltrate, pneumothorax, or pleural effusion. MEDIASTINUM: No abnormal widening. BOWEL GAS PATTERN: Non-obstructed. FREE AIR: None. CALCIFICATIONS: None significant. BONES: No fracture or visible bone lesion. OTHER: Negative. CONCLUSION: Normal examination. Dictated by: Rodolfo Fernandez M.D. on 06/13/2019 at 12:16 Approved by: Rodolfo Fernandez M.D. on 06/13/2019 at 12:18 Normal [facility] Vital Signs Date Time Vital Sign Value Performing Clinician Faci latishay 12-06-2021 17:53-0400 Body mass index (BMI) [Ratio] 46.35 kg/m2 Judith Smyth MD [facility] 12-06-2021 17:53-0400 Body temperature 98.4 [degF] Judith Smyth MD Work Phone[facility] 12-06-2021 17:53-0400 Body weight 122.47 kg Judith Smyth MD Work Phone: [facility] 12-06-2021 17:53-0400 Diastolic blood pressure 77 mm[Hg] Judith Smyth MD Work Phone: [facility] [employer] 12-06-2021 17:53-0400 Heart rate 97 /min Judith Smyth MD Work Phone: [facility] [employer] 12-06-2021 17:53-0400 Respiratory rate 20 /min Judith Smyth MD Work Phone: [facility] [employer] 12-06-2021 17:53-0400 SaO2% (BldA) [Mass fraction] 100 % Judith Smyth MD Work Phone: [facility] [employer] 12-06-2021 17:53-0400 Systolic blood pressure 112 mm[Hg] Judith Smyth MD Work Phone: [facility] [employer] 08-08-2021 09:08-0400 Body temperature 98.4 [degF] Nancie Jesus DO Work Phone: [employer] 08-08-2021 09:08-0400 Diastolic blood pressure 86 mm[Hg] Nancie Jesus DO Work Phone: [employer] 08-08-2021 09:08-0400 Heart rate 89 /min Nancie Jesus DO Work Phone: [employer] 08-08-2021 09:08-0400 Respiratory rate 20 /min Nancie Jesus DO Work Phone: [employer] 08-08-2021 09:08-0400 SaO2% (BldA) [Mass fraction] 96 % Nancie Jesus DO Work Phone: [employer] 08-08-2021 09:08-0400 Systolic blood pressure 147 mm[Hg] Nancie Jesus DO Work Phone: [employer] 04-29-2021 21:53-0500 Body temperature 97.39 [degF] Jesus Paniagua DO Work Phone: [employer] 04-29-2021 21:53-0500 Diastolic blood pressure 78 mm[Hg] Jesus Paniagua DO Work Phone: [employer] 04-29-2021 21:53-0500 Heart rate 101 /min Jesus Paniagua DO Work Phone: [employer] 04-29-2021 21:53-0500 Respiratory rate 17 /min Jesus Paniagua DO Work Phone: [employer] 04-29-2021 21:53-0500 SaO2% (BldA) [Mass fraction] 98 % Jesus Paniagua DO Work Phone: [employer] 04-29-2021 21:53-0500 Systolic blood pressure 132 mm[Hg] Jesus Paniagua DO Work Phone: [employer] 01-15-2021 23:51-0400 Body temperature 98.01 [degF] Zak Kent DO Work Phone: [employer] Phone: 01-15-2021 23:49-0400 Diastolic blood pressure 81 mm[Hg] Zak Kent DO Work Phone: [employer] Work Phone: 01-15-2021 23:49-0400 SaO2% (BldA) [Mass fraction] 100 % Zak Kent DO Work Phone: [employer] Phone: 01-15-2021 23:49-0400 Systolic blood pressure 129 mm[Hg] Zak Kent DO Work Phone: [employer] Work Phone: 01-01-2021 22:22-0400 Body temperature 97.59 [degF] Nancie Jesus DO Work Phone: [employer] Phone: 01-01-2021 22:20-0400 Diastolic blood pressure 94 mm[Hg] Nancie Jesus DO Work Phone: [employer] Phone: 01-01-2021 22:20-0400 Heart rate 89 /min Nancie Jesus DO Work Phone: [employer] Phone: 01-01-2021 22:20-0400 Respiratory rate 18 /min Nancie Jesus [employer] Work Phone: [employer] Phone: 01-01-2021 22:20-0400 SaO2% (BldA) [Mass fraction] 98 % Nancie Jesus [employer] Work Phone: [employer] Phone: 01-01-2021 22:20-0400 Systolic blood pressure 156 mm[Hg] Nancie Jesus [employer] Work Phone: [employer] Phone: 11-26-2020 13:00-0400 Diastolic blood pressure 69 mm[Hg] [employer] Phone: 11-26-2020 13:00-0400 Systolic blood pressure 100 mm[Hg] [employer] Phone: 11-26-2020 12:57-0400 Body temperature 97.3 [degF] [employer] Phone: 11-26-2020 12:57-0400 Heart rate 82 /min [employer] Phone: 11-26-2020 12:57-0400 Respiratory rate 18 /min [employer] Phone: 11-26-2020 12:57-0400 SaO2% (BldA) [Mass fraction] 100 % [employer] Phone: Encounters Encounter Date Encounter Type Care Provider Facility Start: 01-22-2024 End: 01-22-2024 ambulatory FELIX NAJERA [facility] Start: 07-12-2023 End: 07-12-2023 Emergency department patient visit NO PCP NO PCP [facility] Start: 12-06-2021 End: 12-06-2021 Emergency department patient visit ELIA MEDINA [facility] Start: 12-06-2021 End: 12-06-2021 Emergency department patient visit Judith Smyth MD Work Phone: [facility] Comment on above: Urinary tract infect ion without hematuria, site unspecified (Primary Dx); Flank pain Start: 10-16-2021 End: 10-16-2021 Emergency department patient visit NANCIE Corral [facility] Start: 08-08-2021 End: 08-08-2021 Emergency department patient visit NANCIE Ellis [facility] Start: 08-08-2021 End: 08-08-2021 Emergency department patient visit Nancie Jesus Work Phone: [facility] Comment on above: Pain due to dental c roxana (Primary Dx) Start: 04-29-2021 End: 04-30-2021 Emergency department patient visit JESUS COLLAZOMateusz [facility] Start: 04-29-2021 End: 04-29-2021 Emergency department patient visit Jesus Collazomateusz Work Phone: [facility] Comment on above: Arm pain, anterior, right (Primary Dx) Start: 01-16-2021 Emergency department patient visit ZAK KENT [facility] Start: 01-15-2021 End: 01-16-2021 Emergency department patient visit Zak Kent DO Work Phone: [facility] Comment on above: Acute bilateral low back pain without sciatica (Primary Dx) Start: 01-02-2021 End: 01-02-2021 Emergency department patient visit NANCIE R [facility] Start: 01-01-2021 End: 01-01-2021 Emergency department patient visit Nancie R Seth COATES Work Phone: [facility] Comment on above: Nonintractable heada vania, unspecified chronicity pattern, unspecified headache type (Primary Dx) Start: 11-26-2020 End: 11-26-2020 Emergency department patient visit [facility] Comment on above: Suprapubic abdominal pain (Primary Dx) Start: 05-03-2020 End: 05-03-2020 Patient encounter procedure SIMONE GOSS Facility: Start: 06-13-2019 End: 06-13-2019 Patient encounter procedure JUDY BOOTH Facility: Start: 07-30-2017 End: 07-31-2017 Ambulatory DEFAULT PHYSICIAN Facility:[facility] Start: 07-26-2017 End: 07-27-2017 Ambulatory DEFAULT PHYSICIAN Facility:[facility] Procedures Date Procedure Procedure Detail Performing Clinician Start: 12-06-2021 Ct abdomen & pelvis w/o contrast material Judith Smyth MD Work Phone: Start: 12-06-2021 Comprehensive metabo lic panel Judith Smyth MD Work Phone: Start: 12-06-2021 Urine test visual color cmprsn meths Judith Smyth MD Work Phone: Start: 12-06-2021 Urnls dip stick/tabl et reagent auto microscopy Judith Smyth MD Work Phone: Start: 01-15-2021 Urine test visual color cmprsn meths Zak Kent DO Work Phone: Start: 01-15-2021 Urnls dip stick/tabl et reagent auto microscopy Zak Kent DO Work Phone: Start: 11-26-2020 Assay of lipase Rodolfo Mckenzie PA-C Work Phone: Plan of Treatment Date Care Activity Detail Author Start: 10-27-2022 COVID-19 Vaccine (3 - Booster for Moderna series) COVID-19 Vaccine (3 - Booster for Moderna series) [employer] Comment on above: Postponed from 12/01 (Not Indicated) Start: 10-27-2022 Depression Monitoring Depression Mon itoring [employer] Start: 10-27-2022 DTaP/Tdap/Td vaccine (5 - Tdap) DTaP/Tdap/Td vaccine (5 - Tdap) [employer] Comment on above: Postponed from 02/15 (Patient Refused) Start: 10-27-2022 Hepatitis C screening Hepatitis C sc reen [facility] Comment on above: Postponed from 02/15 (Patient Refused) Start: 10-27-2022 HIV screening HIV screen [facility] Comment on above: Postponed from 02/15 (Patient Refused) Start: 10-27-2022 Pneumococcal 0-64 ye ars Vaccine (1 - PCV) Pneumococcal 0-64 years Vaccine (1 - PCV) [facility] Comment on above: Postponed from 02/15 (Not Indicated) Start: 10-27-2022 Screening for malign ant neoplasm of cervix Pap smear [facility] Comment on above: Postponed from 02/15 (Not Indicated) Start: 01-25-2022 Influenza vaccination Flu vaccine (# 1) [facility] Start: 08-29-2021 Depression Monitoring Depression [facility] Start: 01-25-2021 Influenza vaccination Flu vaccine (# 1) [facility] [place] Start: 11-29-2020 End: 11-29-2020 Patient encounter procedure 11/29/2020 Office Visit Obstetrics and Gynecology Kori Westbrook APRN - SEANM [address] [facility] [address] [place] [address] [facility] Start: 2014 Screening for malign ant neoplasm of cervix [facility] [place] Start: 02-16-2008 HIV screening HIV screen [facility] Start: 2005 COVID-19 Vaccine (1) COVID-19 Vaccin e (1) [facility] [place] Start: 02-16-2004 DTaP/Tdap/Td vaccine (5 - Tdap) DTaP/Tdap/Td vaccine (5 - Tdap) [facility] [place] Start: 1999 Pneumococcal 0-64 ye ars Vaccine (1 of 2 - PPSV23) Pneumococcal 0-64 years Vaccine (1 of 2 - PPSV23) [facility] [place] Start: 1998 COVID-19 Vaccine (1) COVID-19 Vaccin e (1) [facility] [place] Start: 1994 Varicella vaccine (1 of 2 - 2-dose childhood series) Varicella vaccine (1 of 2 - 2-dose childhood series) [facility] [place] Start: 1993 Hepatitis C screening Hepatitis C sc reen [facility] [place] End: 11-26-2020 C.trachomatis N.gonorrhoeae DNA C.trachomatis N.gonorrhoeae DNA Microbiology Routine One Time for 1 Occurrences starting 11/26/2020 until 11/26/2020 [employer] Phone: Comment on above: One Time for 1 Occur rences starting 11/26/2020 until 11/26/2020 C.trachomatis N.gonorrhoeae DNA C.trachomatis N.gonorrhoeae DNA Microbiology STAT 11/26/2020 2:10 PM EDT [employer] Phone: End: 11-26-2020 CT ABDOMEN PELVIS W IV CONTRAST Additional Contrast? None CT ABDOMEN PELVIS W IV CONTRAST Additional Contrast? None Imaging STAT Once for 1 Occurrences starting 11/26/2020 until 11/26/2020 [employer] Phone: Comment on above: Once for 1 Occurrenc es starting 11/26/2020 until 11/26/2020 End: 11-26-2020 Urinalysis Reflex to Culture Urinalysis Reflex to Culture Lab STAT One Time for 1 Occurrences starting 11/26/2020 until 11/26/2020 [employer] Phone: Comment on above: One Time for 1 Occur rences starting 11/26/2020 until 11/26/2020 Urinalysis Reflex to Culture Urinalysis Reflex to Culture Lab STAT 11/26/2020 2:00 PM EDT [employer] Work Phone: End: 11-26-2020 Vaginitis DNA Probe Vaginitis DNA Probe Microbiology Routine One Time for 1 Occurrences starting 11/26/2020 until 11/26/2020 [employer] Phone: Comment on above: One Time for 1 Occur rences starting 11/26/2020 until 11/26/2020 Vaginitis DNA Probe Vaginitis DN A Probe Microbiology STAT 11/26/2020 2:10 PM EDT [employer] Phone: Immunizations Immunization Date Immunization Notes Care Provider Fa arjun 07-04-2021 COVID-19, MODERNA BL UE border, Primary or Immunocompromised, (age 12y+), IM, 100 mcg/0.5mL Judith Smyth MD Work Phone: [employer] Work Phone: 04-27-2021 COVID-19, MODERNA BL UE border, Primary or Immunocompromised, (age 12y+), IM, 100 mcg/0.5mL Judith Smyth MD Work Phone: [employer] Work Phone: 03-06-2000 measles, mumps and rubella virus vaccine Judith Smyth MD Work Phone: [employer] Work Phone: 01-17-1998 diphtheria, tetanus toxoids and acellular pertussis vaccine Judith Smyth MD Work Phone: [employer] Work Phone: 01-17-1998 poliovirus vaccine, inactivated Judith Smyth MD Work Phone: [employer] Work Phone: 07-19-1997 diphtheria, tetanus toxoids and acellular pertussis vaccine Judith Smyth MD Work Phone: [employer] Work Phone: 07-19-1997 haemophilus influenz ae type b vaccine, conjugate unspecified formulation Judith Smyth MD Work Phone: [employer] Work Phone: 07-19-1997 hepatitis B vaccine, adult dosage Judith Smyth MD Work Phone: [employer] Work Phone: 07-19-1997 poliovirus vaccine, inactivated Judith Smyth MD Work Phone: [employer] Work Phone: 05-24-1995 diphtheria, tetanus toxoids and acellular pertussis vaccine Judith Smyth MD Work Phone: [employer] Work Phone: 05-24-1995 haemophilus influenz ae type b vaccine, conjugate unspecified formulation Judith Smyth MD Work Phone: [employer] Work Phone: 05-24-1995 hepatitis B vaccine, adult dosage Judith Smyth MD Work Phone: [employer] Work Phone: 03-22-1995 diphtheria, tetanus toxoids and acellular pertussis vaccine Judith Smyth MD Work Phone: [employer] Work Phone: 03-22-1995 haemophilus influenz ae type b vaccine, conjugate unspecified formulation Judith Smyth MD Work Phone: [employer] Work Phone: 03-22-1995 hepatitis B vaccine, adult dosage Judith Smyth MD Work Phone: [employer] Work Phone: 03-22-1995 measles, mumps and rubella virus vaccine Judith Smyth MD Work Phone: [employer] Work Phone: 03-22-1995 poliovirus vaccine, inactivated Judith Smyth MD Work Phone: [employer] Work Phone: Payers Date Payer Category Payer Medicaid [id number] 2018 Unknown [id number] 1993 Unknown [id number] [id number] 1995 Unknown [id number] 2.16.84 [id number] 1995 Unknown [id number] 2.16.8 [id number] 1995 Unknown [id number] 2.16.8 [id number] 1993 Unknown [id number] 2.16.8 [id number] 1993 Unknown [id number] 2.16.8 [id number] 1993 Unknown [id number] 2.16.8 [id number] 1993 Unknown [id number] 2.16.8 [id number] 1993 Unknown [id number] 2.16.8 [id number] 1993 Unknown [id number] 2.16.8 [id number] 1959 Unknown [id number] Unknown Social History Date Type Detail Facility Start: 05-27-2011 End: 11-26-2020 Tobacco smoking status NHIS Current every day smoker [employer] Phone: Start: 05-27-2011 History of tobacco use Cigarette Smo ker [employer] Start: 08-29-2020 End: 11-26-2020 Cigarettes smoked current (pack per day) - Reported [employer] Phone: Start: 08-29-2020 End: 11-26-2020 Tobacco use and exposure Never used [employer] Start: 11-26-2020 End: 12-06-2021 Alcohol intake Ex-drinker (finding) [employer] Phone: Start: 1995 Sex Assigned At Not on file [employer] Phone: Start: 11-26-2021 End: 12-06-2021 Exposure to SARS-CoV-2 (event) Not sure [employer] Clinical Notes 11-26-2020 to 04-29-2021 InstructionsInstructionsAttachments Note Date & Type Note Facility 04-29-2021 Hospital Discharg e instructions Jesus Paniagua DO - 04/29/2021 Return to the Emergency Department immediately if you develop worsening pain, redness, red streaks, fever , or you have any other concerns. Please follow up with your primary care doctor in 2-3 days. documented in this encounter [employer] Phone: 11-26-2020 Hospital Discharg e instructions Rodolfo Mckenzie PA-C - 11/26/2020 Follow-up with OBGyn on Saturday Tylenol or Motrin for pain if needed Drink plenty of fluids Return if pain worsens or any other concerns The following attachments cannot be sent through Care Everywhere.Pelvic Pain (American)documented in this encounter [employer] Phone: Evaluation note Diagnosis Suprapubic abdominal pain- Primary Abdominal pain, other specified site documented in this encounter [employer] Phone: evaluation note* Diagnosis Nonintractable headache, unspecified chronicity pattern, unspecified headache type- Primary documented in this encounter [employer] Phone: evaluation note* Diagnosis Acute bilateral low back pain without sciatica- Primary documented in this encounter [employer] Phone: evaluation note* Diagnosis Arm pain, anterior, right- Primary documented in this encounter [employer] Phone: evaluation note* Diagnosis Pain due to dental caries- Primary documented in this encounter [employer] Phone: evaluation note* Diagnosis Urinary tract infection without hematuria, site unspecified- Primary Flank pain Abdominal pain, unspecified site documented in this encounter [facility] [employer] Phone: Hospital Discharge instructions* Instructions* Zak Kent DO - 01/16/2021 Continue alternating between Motrin and Tylenol every 4 hours for pain. Call and establish care with a family doctor. Return to the emergency department for new, worsening or worrisome symptoms whichinclude but are not limited to increased pain, weakness and numbness. [facility] Phone: Hospital Discharge instructions* Instructions* Nancie Jesus, DO - 08/08/2021 Antibiotics as prescribed follow-up with a dentist to further evaluate your dental pain. Continue to take Tylenol and Motrin for pain control return to ER for worsening pain facial swelling difficulty swallowing. [facility]: Hospital Discharge instructions* Attachments The following attachments cannot be sent through Care Everywhere. 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 DATE CREATED AUTHOR AUTHOR'S ORGANIZ ATION 01/24/2024 [facility] Reason for Visit (unrecogniz ed section and content) Reason Comments Test one week late; brest tenderness, and pelvic cramping; has taken 12 negative tests over past month Reason Comments Headache x1 week, states stre ss related, states under a lot of stress/anxiety with work Letter for School/Work Reason Comments Flank Pain patient states she i s having kidney pain. Reason Comments Other received 1st dose of Moderna vaccination in right arm on 04/27. C/O arm pain, nausea, fatigue Reason Comments Dental Pain can not get into den tist because they do not take her insurance teeth breaking Reason Comments Abdominal Pain dysuria started two days ago, radiating pain in abd started today Dysuria Scheduled Active and Recently Administ ered Medications (unrecognized section and content) Medication Order 01/14/2021 01/15/2021 01/16/2021 dexamethasone (DECADRON) tablet 8 mg (COMPLETED) 8 mg, Oral, ONCE, On 01/16/21 at 0045, For 1 dose 004 (Given - Provid er: Nancie Lubin RN) ibuprofen (ADVIL;MOTRIN) tablet 800 mg (COMPLETED) 800 mg, Oral, ONCE, On 01/16/21 at 0045, For 1 dose, Do not crush or chew. 005 (Given - Provid er: Nancie Lubin RN) Scheduled Medication Order 04/27/2021 04/28/2021 04/29/2021 ibuprofen (ADVIL;MOTRIN) tablet 400 mg (COMPLETED) 400 mg, Oral, ONCE, On 04/29/21 at 2215, For 1 dose, Do not crush or chew. 2220 (Given - Provid er: Magalie Jones RN) ondansetron (ZOFRAN-ODT) disintegrating tablet 4 mg (COMPLETED) 4 mg, Oral, ONCE, On 04/29/21 at 2215, For 1 dose 2220 (Given - Provid er: Magalie Jones RN) Scheduled Medication Order 08/06/2021 08/07/2021 08/08/2021 clindamycin (CLEOCIN) capsule 300 mg (COMPLETED) 300 mg, Oral, ONCE, On Sat08/08/21 at 1015, For 1 dose 101 (Given - Provid er: Paula Reynoso RN) Scheduled Medication Order 12/04/2021 12/05/2021 12/06/2021 0.9 % sodium chloride bolus (COMPLETED) 1,000 mL (8.16 mL/kg), IntraVENous, at 1,000 mL/hr, Administer over 60 Minutes, ONCE, On Sat12/06/21 at 1915, For 1 dose, For adult patients weighing > 55 kg (120 lbs.) and less than <50 years of age initiate 0.9NS at 500 mL/ hr. All bolus orders are to be given over 10 to 15 minutes 1917 (New Bag - Prov ider: Janina Villarreal RN)2019 (Stopped - Provider: Haja Adamson RN) cefTRIAXone (ROCEPHIN) 1000 mg IVPB in 50 mL D5W minibag (COMPLETED) 1,000 mg, IntraVENous, ONCE, 1 dose, On Sat12/06/21 at 191, Antimicrobial Indications: Urinary Tract Infection 1924 (New Bag - Prov ider: Janina Villarreal RN)2019 (Stopped - Provider: Haja Adamson RN) hydrocodone-acetaminophen (NORCO) tablet 5-325 mg (STARTER PACK) This order is for a take home starter pack of medication. Please document Not Given with a reason of other on the JUL along with a comment of sent home with patient. 2028 (Not Given - Pr ovider: Haja Adamson RN - Reason: Other - Comment: sent with patient per Dr. Baez) ketorolac (TORADOL) injection 30 mg (COMPLETED) Ketorolac is contraindicated in patients with advanced renal impairment and in patients at risk of renal failure due to volume depletion. For 65 years of age and older OR weight less than 50 kg, use 15 mg IV every 6 hours; MAX dose: 60 mg/day. Dose greater than 30 mg must be administered via intramuscular route. Do not administer for more than 5 days., 30 mg, IntraVENous, ONCE, 1 dose, On Sat12/06/21 at 191, Do not administer for more than 5 days. 1919 (Given - Provid er: Janina Villarreal RN) Ordered Prescriptions (unrec ognized section and content) Prescription Sig Dispensed Refills Start Date End Da te ibuprofen (IBU) 600 MG tablet Take 1 tablet by mouth every 8 hours as needed for Pain 20 tablet 0 08/08/2021 acetaminophen (TYLENOL) 325 MG tablet Take 2 tablets by mouth every 6 hours as needed for Pain 30 tablet 0 08/08/2021 clindamycin (CLEOCIN) 150 MG capsule Take 2 capsules by mouth 4 times daily for 7 days 56 capsule 0 08/08/2021 08/15/2021 Prescription Sig Dispensed Refills Start Date End Da te sulfamethoxazole-trimetho prim (BACTRIM DS) 800-160 MG per tablet Take 1 tablet by mouth 2 times daily for 10 days 20 tablet 0 12/06/2021 12/16/2021 Care Teams (unrecognized sec tion and content) Dry Sander Relationship Specialty Start Date End Date Bony, Elia Ward, SEARCH ENGINE MARKETING STRATEGIST - SEO SPECIALIST [address] [place] [address] PCP - General Family Nurse Practitioner 10/27/21 FOR RECORDS PERTAINING TO PATIENTS WHO ARE OR HAVE BEEN ENROLLED IN A CHEMICAL DEPENDENCY/SUBSTANCEABUSE PROGRAM, SOME INFORMATION MAY BE OMITTED. This clinical summary was aggregated from multiple sources. Caution should be exercised in using it in the provision of clinical care. This summary normalizes information from multiple sources, and as a consequence, information in this document may materially change the coding, format and clinical context of patient data. In addition, data may be omitted in some cases. CLINICAL DECISIONS SHOULD BE BASED ON THE PRIMARY CLINICAL RECORDS. [facility] [employer] [facility]. provides no warranty or guarantee of the accuracy or completeness of information in this document.
--- NOTE | 2024-04-03 18:45 | ED.GENADUL1 ---
HPI HPI - General Adult General Chief complaint: Upper Respiratory Infection Stated complaint: SORE THROAT, EAR PAIN, HEADACHE Time Seen by Provider: 04/03/24 18:44 History of Present Illness HPI narrative: Female presents here with chief complaint with sore throat for days. Patient is currently afebrile. She is able to tolerate p.o. secretions well. No other complaints at this time. States she has had the symptoms for the past couple of days. Related Data Previous Rx's ?Medication ?Instructions ?Recorded cephalexin 500 mg capsule 500 mg PO BID 10 days #20 caps 04/03/24 Allergies Allergy/AdvReac Type Severity Reaction Status Date / Time Penicillins Allergy Severe Verified 10/14/23 10:07 Opioid HPI Opioid Management Most Recent Opioid Data: No Data to Display Review of Systems ROS Narrative All Systems are negative except as noted/marked.All systems reviewed and otherwise negative PFSH PFSH Social History Little interest or pleasure in doing things: not at all Feeling down, depressed, or hopeless: not at all Exam Narrative Exam Narrative: Nurses note and vital signs reviewed and patient is not hypoxic. General: The patient appears well and in no apparent distress. Patient is resting comfortably on cart. Skin: Warm, dry, no pallor noted. There is no rash noted. Head: Normocephalic, atraumatic Eye: Normal conjunctiva, no drainage, EOMI. PERRL Ears, Nose, Mouth, and Throat: no peritonsillar abscess, uvula midline oral mucosa is moist. Nares patent. Mouth without vesicles. Ear canals patent. Tm's without Erythema Cardiovascular: Regular Rate and Rhythm Respiratory: Patient is in no distress, no accessory muscle use, lungs are clear to auscultation, no wheezing, rales or rhonchi Musculoskeletal: The patient has no evidence of calf tenderness, no pitting edema, symmetrical pulses noted bilaterally Neurological: A&O x4, normal speech Psychiatric: Cooperative Constitutional Vital Signs, click to edit/add: Last Vital Signs Temp 98.6 F 04/03/24 18:57 Pulse 93 H 04/03/24 18:57 Resp 18 04/03/24 18:57 BP 147/93 H 04/03/24 18:57 Pulse Ox 96 04/03/24 18:57 O2 Del Method Room Air 04/03/24 18:57 Course Vital Signs Vital signs: Vital Signs Temperature 98.6 F 04/03/24 18:57 Pulse Rate 93 H 04/03/24 18:57 Respiratory Rate 18 04/03/24 18:57 Blood Pressure 147/93 H 04/03/24 18:57 Pulse Oximetry 96 04/03/24 18:57 Oxygen Delivery Method Room Air 04/03/24 18:57 Temperature 98.6 F 04/03/24 18:57 Pulse Rate 93 H 04/03/24 18:57 Respiratory Rate 18 04/03/24 18:57 Blood Pressure 147/93 H 04/03/24 18:57 Pulse Oximetry 96 04/03/24 18:57 Oxygen Delivery Method Room Air 04/03/24 18:57 Medical Decision Making MDM Narrative Medical decision making narrative: Complaint sore throat headache and ear pain. Patient is currently afebrile. Mild erythremia noted to the throat. Patient is tolerating secretions well. Strep was obtained and positive. Patient be discharged home prescription of Keflex. Follow-up primary care physician. No evidence of peritonsillar abscess no hot potato voice Differential Diagnosis Differential Diagnosis: strep, covid, flu Medical Records Medical records reviewed: Yes I reviewed the patient's medical records Lab Data Lab results reviewed: Yes I reviewed the patient's lab results Labs: Lab Results 04/03/24 Range/Units 19:30 Influenza Type A Ag Negative Influenza Type B Ag Negative SARS-CoV-2 Ag (CV2AG) Negative (NEGATIVE) Streptococcus Screen Positive A Discharge Plan Discharge Chief Complaint: Upper Respiratory Infection Clinical Impression: Strep pharyngitis Patient Disposition: Home, Self-Care Time of Disposition Decision: 20:20 Condition: Good Prescriptions / Home Meds: New cephalexin 500 mg capsule 500 mg PO BID 10 Days Qty: 20 0RF Print Language: Pakistani Instructions: Strep Throat (ED) Referrals: Physician,Non-Staff, MD [Primary Care Provider] - 1 week Discharge Date/Time: 04/03/24 20:33
[2024-04-03 18:57] VITALS: BP 147/93; PULSE 93; TEMP 37; O2SAT 96; BMI 49.9
[2024-04-03 20:06] LABS: Influenza Virus A Antigen Negative; Influenza Virus B Antigen Negative; Internal Control Within Normal Limits; SARS-CoV-2 Ag NEGATIVE (NEGATIVE); Strep A Antigen Screen Positive
[2024-04-03] MEDS: DEXAMETHASONE SOD PHOS 10 MG/ML VIAL PO (20:32)
[2024-04-03] MEDS: CEPHALEXIN 500 MG CAPSULE PO (20:32)
== END 2024-04-03 20:33 | disposition home or self-care (01) ==
PROVIDERS: Physician Assistant; Emergency Provider Emergency Medicine
DX: J02.0 Streptococcal pharyngitis (principal); Z20.822 Contact with and (suspected) exposure to COVID-19
CPT/HCPCS: 87804; 87811; 87880; 99283; J1100

== ENCOUNTER 2024-06-24 09:14 | Emergency (ER) | payer MEDICAID, SELFPAY ==
[2024-06-24 09:22] VITALS: BP 124/91; PULSE 74; TEMP 36.6; O2SAT 98; BMI 53.1
--- NOTE | 2024-06-24 09:31 | ED_ITS ---
HPI - URI/Sore Throat General Chief Complaint: Upper Respiratory Infection Stated Complaint: COUGHING Time Seen by Provider: 06/24/24 09:15 Source: patient Limitations: no limitations History of Present Illness HPI Narrative: Patient presents ED complaint of cough and upper respiratory infection. She also brought her son in for evaluation who has the same thing. She said it started for both of them about 3 days ago. She said they were sick after the holidays and then seem to get better and now they have something else again. They have seen the nickel operator a few times and had a chest x-ray for the child but not for the mom. No pneumonia no antibiotics needed on her previous visits for herself for the child. Patient's vitals are stable no fever oxygen saturation 98%. She says she is not coughing anything up she feels like it stuck in her chest. No abdominal pain nausea or vomiting. She is alert and oriented no acute Related Data Previous Rx's ?Medication ?Instructions ?Recorded cephalexin 500 mg capsule 500 mg PO BID 10 days #20 caps 04/03/24 albuterol sulfate 90 mcg/actuation 1 inh inhalation Q6H PRN 06/24/24 aerosol inhaler bronchospasm #8.5 grams doxycycline hyclate 100 mg capsule 100 mg PO BID 7 days #14 caps 06/24/24 Allergies Allergy/AdvReac Type Severity Reaction Status Date / Time Penicillins Allergy Severe Verified 10/14/23 10:07 Review of Systems ROS Status of ROS 10 or more systems reviewed and unremark able except as noted in history and below PFSH PFSH Social History Little interest or pleasure in doing things: not at all Feeling down, depressed, or hopeless: not at all Exam Narrative Exam Narrative: Time Seen: [] Vital Signs: [Per nurse's notes.] General: [Alert] Skin: [Warm, dry, no rash.] Head: [Normocephalic, atraumatic.] Neck: [Supple, trachea midline.] Eye: [Pupils are equal, round and reactive to light, extraocular movements are intact, normal conjunctiva.] Ears, nose, mouth and throat: oral mucosa moist. Cardiovascular: [Regular rate and rhythm, no murmur.] Respiratory: [Lungs are clear to auscultation, respirations are non-labored, breath sounds are equal.] Chest wall: [No tenderness, no deformity.] Gastrointestinal: [Soft, nontender, non distended, normal bowel sounds.] MSK: 5 out of 5 muscle strength x 4 extremities no calf pain or edema Lymphatics: [No lymphadenopathy.] Psychiatric: [Cooperative, appropriate mood & affect.] Neurological: [Alert and oriented to person, place, time, and situation, no focal neurological deficit observed.] Constitutional Vital Signs, click to edit/add: Last Vital Signs Temp 97.9 F 06/24/24 09:22 Pulse 74 06/24/24 09:22 Resp 18 06/24/24 09:22 BP 124/91 06/24/24 09:22 Pulse Ox 98 06/24/24 09:22 O2 Del Method Room Air 06/24/24 09:22 Course Vital Signs Vital signs: Vital Signs Temperature 97.9 F 06/24/24 09:22 Pulse Rate 74 06/24/24 09:22 Respiratory Rate 18 06/24/24 09:22 Blood Pressure 124/91 06/24/24 09:22 Pulse Oximetry 98 06/24/24 09:22 Oxygen Delivery Method Room Air 06/24/24 09:22 Temperature 97.9 F 06/24/24 09:22 Pulse Rate 74 06/24/24 09:22 Respiratory Rate 18 06/24/24 09:22 Blood Pressure 124/91 06/24/24 09:22 Pulse Oximetry 98 06/24/24 09:22 Oxygen Delivery Method Room Air 06/24/24 09:22 MDM - URI/Sore Throat MDM Narrative Medical decision making narrative: Patient's checks x-ray shows pneumonia. Flu COVID RSV were negative. Patient will be sent home with doxycycline for broad coverage of pneumonia. Patient also sent home with an inhaler. Take [id number] cough medication as well. Tylenol or Motrin for any fever. Patient is not hypoxic or in any respiratory distress. She is stable for discharge home. Return to ED if worsening symptoms and patient's comfortable with care plan. Differential Diagnosis Differential diagnosis: Likely upper respiratory infection, sinusitis, viral infection, influenza and other (Pneumonia) Lab Data Attestation: I reviewed the patient's lab results. Labs: Lab Results 06/24/24 Range/Units 09:25 Influenza Type A Ag Negative Influenza Type B Ag Negative RSV Antigen Not detected (NOT DETECTE) SARS-CoV-2 Ag (CV2AG) Negative (NEGATIVE) Imaging Data Chest x-ray: Radiologist's impression: ITS Impressions Chest X-Ray 06/24/24 09:48 IMPRESSION: 1. Trace amount of scattered infiltrates within right lung. Electronically authenticated by: KURTIS ENRIQUEZ Date: 06/24/2024 10:06 Discharge Plan Discharge Chief Complaint: Upper Respiratory Infection Clinical Impression: Pneumonia Patient Disposition: Home, Self-Care Time of Disposition Decision: 10:21 Condition: Good Mode of Transportation: Private Vehicle Prescriptions / Home Meds: New albuterol sulfate 90 mcg/actuation HFA aerosol inhaler 1 inh inhalation Q6H PRN (Reason: bronchospasm) Qty: 8.5 0RF doxycycline hyclate 100 mg capsule 100 mg PO BID 7 Days Qty: 14 0RF No Action cephalexin 500 mg capsule 500 mg PO BID 10 Days Qty: 20 0RF Print Language: Israeli Instructions: Community Acquired Pneumonia (ED) Referrals: Physician,Non-Staff, MD [Primary Care Provider] - 1 week Discharge Date/Time: 06/24/24 10:30
--- NOTE | 2024-06-24 09:48 | XR_ITS ---
The [address] [address] Patient Name: JOHN YAÑEZ MRN: [id number] date: 1995 Sex: F Assigned Patient Location: ER Current Patient Location: ER Accession/Order Number: [id number] Exam Date: 06/24/2024 09:40 Report Date: 06/24/2024 10:06 At the request of: PEREZ ANDRADE Procedure: XR chest 2V EXAMINATION: XR chest 2V HISTORY: cough COMPARISON: No relevant comparison available. FINDINGS: LUNGS: Several faint small patchy opacities within lateral right lung. Left lung is clear. VASCULATURE: No increased pulmonary vasculature. PLEURA: No pneumothorax, effusion, or pleural thickening. CARDIAC: No cardiomegaly or cardiac silhouette abnormality. MEDIASTINUM: No visible mass or adenopathy. BONES: No fracture or visible bone lesion. OTHER: Negative. XR/XR chest 2V IMPRESSION: 1. Trace amount of scattered infiltrates within right lung. Electronically authenticated by: KURTIS ENRIQUEZ Date: 06/24/2024 10:06
[2024-06-24 09:56] LABS: Influenza Virus A Antigen Negative; Influenza Virus B Antigen Negative; Internal Control Within Normal Limits; Respiratory Syncytial Virus Not Detected (NOT DETECTE); SARS-CoV-2 Ag NEGATIVE (NEGATIVE)
== END 2024-06-24 10:30 | disposition home or self-care (01) ==
PROVIDERS: Emergency Provider Emergency Medicine
DX: J18.9 Pneumonia, unspecified organism (principal)
CPT/HCPCS: 71046; 87420; 87804; 87811; 99284

== ENCOUNTER 2024-08-17 12:10 | Emergency (ER) | payer MEDICAID, SELFPAY ==
[2024-08-17 12:18] VITALS: BP 132/92; PULSE 93; TEMP 36.8; O2SAT 97; BMI 50.4
--- OUTSIDE RECORDS SUMMARY | 2024-08-17 12:21 | XMS_ITS | CCD ---
Author Organization [facility] Care Team Providers Care Glass Washer Name Role Phone PHYSICIAN, DEFAULT Unavailable Unavailable PHYSICIAN, DEFAULT Unavailable Unavailable PHYSICIAN, DEFAULT Unavailable Unavailable PHYSICIAN, DEFAULT Unavailable Unavailable SIMONE GOSS Consulting Unavailable SIMONE GOSS Admitting Unavailable REQUEST, NONE LISTED Primary Care Unavailable SIMONE GOSS Attending Unavailable EMMY, JUDY Attending Unavailable JUDY BOOTH Admitting Unavailable REQUEST, NONE LISTED Primary Care Unavailable RODOLFO FERNANDEZ Consulting Unavailable JUVENTINO MA Consulting Unavailable Unavailable Primary Care Provider Unavailabl e Elia Nicolas APRN, CNP Primary Care Provider ELIA MEDINA Primary Care Unavailable RAÚL BAEZ Attending Unavailable NANCIE JESUS Attending Unavailable ZAK KENT Attending Unavailable NANCIE JESUS Attending Unavailable JESUS PANIAGUA Attending Unavailable NANCIE JESUS Attending Unavailable FELIX NAJERA Referring Unavailable NO PCP, NO PCP Primary Care Unavailable NO PCP, NO PCP Primary Care Unavailable KIRILL ROUSE Attending Unavailable No Pcp, No Pcp Primary Care Provider Unavailabl e Allergies Allergy Classification Reported Allergen(s) Allergy Type Date of Onset Reaction(s) Facility Penicillins (antibiotic) (2 sources) Penicillins Drug Allergy 7 [facility], [facility] Penicillin Drug Allergy 7 [facility] (5 sources) Penicillins; Translations: [PENICILLINS] Propensity to adverse reactions to drug 7 Hives, Itching [facility] (2 sources) Amoxicillin; Translations: [AMOXICILLIN] Drug Allergy 4 [facility] (1 source) Penicillins Propensity to adverse reactions to drug 8 Hives, Itching [facility] Medications Current Medications Medication Drug Class(es) Dates [...] Active folic acid 1 mg oral tablet (6 sources) Start: 07-10-2022 take 1 tablet by mouth in the morning folic acid (FOLVITE) 1 mg tablet Indications: History of neural tube defect Take 1 tablet (1 mg total) by mouth in the morning. 30 tablet 3 07/10/2022 Active Start: 08-29-2020 End: 08-08-2021 take 1 tablet [...] (before breakfast) 90 capsule 1 10/27/2021 Active 25/iron fum/folic/dha (-1 ORAL) (1 source) 25/iron fum/folic/dha (-1 ORAL) Take by mouth. Active vit 52-hafp-uwyiq-dha 29 mg iron-1 mg -250 mg combo pack (1 source) Start: 07-10-2022 take 1 tablet by mouth in the morning vit 00-pirr-bbozi-dha 29 mg iron-1 mg -250 mg combo pack Indications: History of neural tube defect Take 1 tablet by mouth in the morning. 30 each 11 07/10/2022 Active Vit-Fe Ohq-AD-Lwdsx (ONE-A-DAY WOMENS ) 28-0.8 & 223 MG MISC (5 sources) Start: 08-29-2020 End: 08-08-2021 take 1 tablet by mouth once daily Vit-Fe Uud-NZ-Xkxtn (ONE-A-DAY WOMENS ) 28-0.8 & 223 MG MISC Indications: History of neural tube defect Take 1 tablet by mouth daily 90 each 4 08/29/2020 08/08/2021 Discontinued (LIST CLEANUP) Start: 08-29-2020 take 1 tablet by gail once daily Vit-Fe Bnv-YN-Yhsdj (ONE-A-DAY WOMENS ) 28-0.8 & 223 MG MISC Indications: History of neural tube defect Take 1 tablet by mouth daily 90 each 4 08/29/2020 Active sertraline 25 mg oral tablet (6 sources) Serotonin Reuptake Inhibitor Start: 01-01-2023 take 1 tablet by mouth once daily in the morning sertraline (ZOLOFT) 25 mg tablet Indications: Anxiety and depression take 1 tablet by mouth every morning 30 tablet 01/01/2023 Active Start: 08-29-2020 End: 08-08-2021 take 1 tablet by mouth once daily sertraline (ZOLOFT) 50 MG tablet Indications: Positive depression screening Take 1 tablet by mouth daily 30 tablet 1 08/29/2020 08/08/2021 Discontinued (LIST CLEANUP) sulfamethoxazole 800 mg / trimethoprim 160 mg oral tablet (1 source) Dihydrofolate Reductase Inhibitor Antibacterial, Sulfonamide Antimicrobial Start: 12-06-2021 End: 12-16-2021 take 1 tablet by mouth twice daily sulfamethoxazole-trimethoprim (BACTRIM DS) 800-160 MG per tablet Take [...] [Suprapubic pain] Onset: 06-16-2019 Episodic Anxiety disorders (2 sources) Mixed anxiety and depressive disorder; Translations: [Anxiety disorder, unspecified] Onset: 07-03-2017 10-27-2021 Chronic Cardiac and circulatory congenital anomalies (2 sources) Atrial septal defect; Translations: [Atrial septal defect] Onset: 11-07-2018 10-27-2021 Chronic Disorders of teeth and jaw (4 sources) Right temporomandibular joint disorder, unspecified; Translations: [Other specified disorders of teeth and supporting structures] Onset: 05-03-2020 Gastroduodenal ulcer (except hemorrhage) (2 sources) Peptic ulcer; Translations: [Peptic ulcer, site unspecified, [...] Translations: [Pain in right arm] Episodic Other nutritional; endocrine; and metabolic disorders (1 source) Body mass index 40+ - severely obese; Translations: [Body mass index (BMI) 40.0-44.9, adult] Onset: 06-06-2022 06-06-2022 Chronic Other and delivery including normal (2 sources) Encounter for supervision of normal , unspecified, unspecified trimester; Translations: [Early stage of ] Onset: 01-22-2024 01-21-2024 Episodic Spondylosis; intervertebral disc disorders; other back problems (1 source) Acute low back pain; Translations: [Low back pain] Episodic Substance-related disorders (3 sources) Tobacco smoking behavior - finding; Translations: [...] Translations: [Acute bronchitis, unspecified] Onset: 07-12-2023 Episodic Contraceptive and procreative management (1 source) Social and personal history finding; Translations: [Encounter for procreative management, unspecified] Onset: 06-06-2022 06-06-2022 Episodic Disorders of teeth and jaw (4 sources) Dental caries, unspecified; Translations: [Pain] Onset: 05-05-2020 Episodic Mood disorders (1 source) Mood disorders Onset: 07-27-2019 07-27-2019 Nervous system congenital anomalies (6 sources) H/O: [...] media, unspecified, unspecified ear] Onset: 07-12-2023 Episodic Residual codes; unclassified (1 source) Nicotine-filled electronic cigarette user; Translations: [Tobacco use] Onset: 06-06-2022 06-06-2022 Episodic Residual codes; unclassified (1 source) History of induced termination of ; Translations: [Personal history of other medical treatment] Onset: 06-06-2022 06-06-2022 Episodic Screening and history of mental health and substance abuse codes (7 sources) Personal history of nicotine dependence; Translations: [Depression screening positive] Onset: 06-16-2019 08-29-2020 Episodic Unclassified (1 source) Onset: 07-27-2019 07-27-2019 Results Test Name Value Interpretation Reference Range Facility HCG.beta subunit IA 3rd IS Q non 01-22-2024 SERUM B HCG,3RD I.S. <5 Normal [facility] Comment on above: Result Comment: NEW [...] neoplasms. Performed By: #### 2 0415-6 #### [facility] ([id number]) [address] [place] [address] [address] [place] [address] SARS/FLU A+B/RSV by NAAT/Mol ecularon 07-12-2023 SARS/FLU [...] operators who are performing tests using either [employer] or [employer] systems and is limited to laboratories [...] repeat. Fact Sheet for Healthcare Providers: https://www.fda.gov /media/954832/downl oad Fact Sheet for Patients: https://www.fda.gov /media/981369/downl oad Normal [facility] Comment on above: Performed By: #### C OVFLR #### [facility] ([id number]) [address] [place] [id number] CBC with Auto Differentialon 12-06-2021 Absolute Eos # 0.39 [facility] Absolute Immature Granulocyte 0.03 [facility] Absolute Lymph # 3.22 [facility] U[facility] Absolute [place] # 0.93 [facility] RS [facility] Basophils (Bld) [#/Vol] 0.08 10*3/uL [facility] Basophils/100 WBC (Bld) 1 % 0 - 2 % [facility] Eosinophils/100 WBC (Bld) 4 % 1 - 4 % [facility] Hematocrit (Bld) [Volume fraction] 45.7 % 36.3 - 47.1 % [facility] Hemoglobin (Bld) [Mass/Vol] 14.8 g/dL 11.9 - 15.1 g/dL [facility] Immature granulocytes/100 WBC (Bld) 0 % 0 [facility] Lymphocytes/100 WBC (Bld) 30 % 24 - 43 % [facility] MCH (RBC) [Entitic mass] 30.5 pg 25.2 - 33.5 pg [facility] MCHC (RBC) [Mass/Vol] 32.4 g/dL 28.4 - 34.8 g/dL [facility] MCV (RBC) [Entitic vol] 94.2 fL 82.6 - 102.9 fL [facility] Monocytes/100 WBC (Bld) 9 % 3 - 12 % B ON [facility] NRBC Automated 0.0 0.0 per 100 WBC [facility] Platelet distribution width (Bld) [Ratio] 13.5 % 11.8 - 14.4 % [facility] Platelet mean volume (Bld) [Entitic vol] 10.0 fL 8.1 - 13.5 fL [facility] Platelets (Bld) [#/Vol] 280 10*3/uL [facility] RBC (Bld) [#/Vol] 4.85 10*6/uL 3.95 - 5.1 1 m/uL [facility] Segmented neutrophils/100 WBC (Bld) 56 % 36 - 65 % [facility] Segs Absolute 6.22 [facility] WBC (Bld) [#/Vol] 10.9 10*3/uL [facility] S [facility] CBC with Diffon 12-06-2021 Abs. Basophil 0.08 k/uL Normal 0.00-0.20 [facility] Comment on above: Performed By: #### C P LIP, CDP #### [facility] [address] [place] [address] Rodent Exterminator: Jovon Zayas MD Abs.Imm.Granulocyte 0.03 k/uL Normal 0.00-0.30 [facility] Comment on above: Performed By: #### C P, LIP, CDP #### [facility] [address] [place] [address] Rodent Exterminator: Jovon Zayas MD Abs.Neutrophil (Seg) 6.22 k/uL Normal 1.50-8.10 [facility] Comment on above: Performed By: #### C P, LIP, CDP #### [facility] [address] [place], [facility] Rodent Exterminator: Jovon Zayas MD Basophils/100 WBC (Bld) 1 % Normal 0-2 [facility] Comment on above: Performed By: #### C P, LIP, CDP #### [address] [place], [facility] Rodent Exterminator: Jovon Zayas MD Eosinophils (Bld) [#/Vol] 0.39 10*3/uL Normal 0.00-0.44 [facility] Comment on above: Performed By: #### C P, LIP, CDP #### [address] [place], [place] [address] Rodent Exterminator: Jovon Zayas MD Eosinophils/100 WBC (Bld) 4 % Normal 1-4 [facility] Comment on above: Performed By: #### C P, LIP, CDP #### [address] [place], [facility] Rodent Exterminator: Jovon Zayas MD Erythrocyte distribution width (RBC) [Ratio] 13.5 % Normal 11.8-14.4 [facility] Comment on above: Performed By: #### C P, LIP, CDP #### [address] [place], [facility] Rodent Exterminator: Jovon Zayas MD Hematocrit (Bld) [Volume fraction] 45.7 % Normal 36.3-47.1 [facility] Comment on above: Performed By: #### C P, LIP, CDP #### [address] [place], [facility] Rodent Exterminator: Jovon Zayas MD Hemoglobin (Bld) [Mass/Vol] 14.8 g/dL Normal 11.9-15.1 [facility] Comment on above: Performed By: #### C P, LIP, CDP #### [address] [place], [facility] Rodent Exterminator: Jovon Zayas MD Immature granulocytes/100 WBC (Bld) 0 % Normal 0 [facility] Comment on above: Performed By: #### C P, LIP, CDP #### [facility] [address] [place], [facility] Rodent Exterminator: Jovon Zayas MD Lymphocytes (Bld) [#/Vol] 3.22 10*3/uL Normal 1.10-3.70 [facility] Comment on above: Performed By: #### C P, LIP, CDP #### [address] [place], [place] [address] Rodent Exterminator: Jovon Zayas MD Lymphocytes/100 WBC (Bld) 30 % Normal 24-43 [facility] Comment on above: Performed By: #### C P, LIP, CDP #### [address] [place], [facility] Rodent Exterminator: Jovon Zayas MD MCH (RBC) [Entitic mass] 30.5 pg Normal 25.2-33.5 [facility] Comment on above: Performed By: #### C P, LIP, CDP #### [address] [place], [facility] Rodent Exterminator: Jovon Zayas MD MCHC (RBC) [Mass/Vol] 32.4 g/dL Normal 28.4-34.8 [facility] Comment on above: Performed By: #### C P, LIP, CDP #### [address] [place], [facility] Rodent Exterminator: Jovon Zayas MD MCV (RBC) [Entitic vol] 94.2 fL Normal 82.6-102.9 [facility] Comment on above: Performed By: #### C P, LIP, CDP #### [address] [place], [facility] Rodent Exterminator: Jovon Zayas MD Monocytes (Bld) [#/Vol] 0.93 10*3/uL Normal 0.10-1.20 [facility] Comment on above: Performed By: #### C P, LIP, CDP #### [facility] [address] [place], [place] [phone] Rodent Exterminator: Jovon Zayas MD Monocytes/100 WBC (Bld) 9 % Normal 3-12 [facility] Comment on above: Performed By: #### C P, LIP, CDP #### [facility] [address] [place], [place] [phone] Rodent Exterminator: Jovon Zayas MD Neutrophil (Seg) 56 % Normal 36-65 [facility] Comment on above: Performed By: #### C P, LIP, CDP #### [facility] [address] [place] [address] [place] [place], [place] [phone] Rodent Exterminator: Jovon Zayas MD NRBC Automated 0.0 per 100 WBC Normal 0.0 [facility] Comment on above: Performed By: #### C P, LIP, CDP #### [address] [place], [place] [phone] Rodent Exterminator: Jovon Zayas MD Platelet mean volume (Bld) [Entitic vol] 10.0 fL Normal 8.1-13.5 [facility] Comment on above: Performed By: #### C P, LIP, CDP #### [facility] [address] [place] [address] [place], [place] [phone] Rodent Exterminator: Jovon Zayas MD Platelets (Bld) [#/Vol] 280 10*3/uL Normal 138-453 [facility] Comment on above: Performed By: #### C P, LIP, CDP #### [facility] [address] [place], [place] [phone] Rodent Exterminator: Jovon Zayas MD RBC (Bld) [#/Vol] 4.85 10*6/uL Normal 3.95-5.11 [facility] Comment on above: Performed By: #### C MICHAEL Ozuna, CDP #### [facility] [address] [place], [place] [phone] Rodent Exterminator: Jovon Zayas MD WBC (Bld) [#/Vol] 10.9 10*3/uL Normal 3.5-11.3 [facility] Comment on above: Performed By: #### C MICHAEL Ozuna, CDP #### [facility] [address] [place], [place] [phone] Rodent Exterminator: Jovon Zayas MD CT ABDOMEN PELVIS WO [...] an adenoma. No follow-up is required per [employer] guidelines Interpreted by: Hank Lloyd Signed by: Hank Lloyd 12/06/21 Final result Normal [facility] CT ABDOMEN PELVIS WO CONTRAS T Additional Contrast? Noneon 12-06-2021 1. No acute abdominal or pelvic findings. No evidence of nephrolithiasis. 2. 1 cm right adrenal nodule consistent with an adenoma. No follow-up is required per [employer] guidelines MHPN RIS CONSOLIDATED [...] an adenoma. No follow-up is required per [employer] guidelines [email or web address] Work Phone: Radiology Study observation (narrative) tribr Work Phone: CT ABDOMEN PELVIS WO CONTRAS T Additional Contrast? NoneOrdered By: Hank Lloyd on 12-06-2021 ADDY SEGUNDO [facility] Work Phone: Comp Metabolic Profon 2021 (cont.) Normal [facility] Comment on above: Result Comment: Aver age GFR for 20-29 years old: 116 mL/min/1.73sq m Chronic Kidney Disease: <60 mL/min/1.73sq m Kidney failure: <15 mL/min/1.73sq m eGFR calculated using average adult body mass. Additional eGFR calculator available at: http://www.BetaUsersNow.com/multiple_crcl_2012.htm Performed By: #### C P, LIP, CDP #### [facility] [address] [place] [address] [place], [place] [phone] Rodent Exterminator: Jovon Zayas MD Albumin [Mass/Vol] 4.4 g/dL Normal 3.5-5.2 [facility] Comment on above: Performed By: #### C P, LIP, CDP #### [facility] [address] [place], [place] [phone] Rodent Exterminator: Jovon Zayas MD Albumin/Glob Ratio 1.7 Normal 1.0-2.5 [facility] Comment on above: Performed By: #### C P, LIP, CDP #### [facility] [address] [place], [place] [phone] Rodent Exterminator: Jovon Zayas MD Alkaline Phos 69 U/L Normal 35-104 [facility] Comment on above: Performed By: #### C P, LIP, CDP #### [facility] [address] [place], [place] [phone] Rodent Exterminator: Jovon Zayas MD ALT [Catalytic activity/Vol] 14 U/L Normal 5-33 [facility] Comment on above: Performed By: #### C P, LIP, CDP #### [facility] [address] [place] [address] Rodent Exterminator: Jovon Zayas MD Anion gap [Moles/Vol] 11 mmol/L Normal 9-17 [facility] Comment on above: Performed By: #### C P, LIP, CDP #### [facility] [address] [place], [place] [phone] Rodent Exterminator: Jovon Zayas MD AST [Catalytic activity/Vol] 10 U/L Normal <32 [facility] Comment on above: Performed By: #### C P, LIP, CDP #### [facility] [address] [place], [place] [phone] Rodent Exterminator: Jovon Zayas MD Bilirubin [Mass/Vol] 0.20 mg/dL Low 0.3-1.2 [facility] Comment on above: Performed By: #### C P, LIP, CDP #### [facility] [address] [place] [address] [place], [place] [phone] Rodent Exterminator: Jovon Zayas MD BUN/CRE Ratio 19 Normal 9-20 [facility] Comment on above: Performed By: #### C P, LIP, CDP #### [facility] [address] [place], [place] [phone] Rodent Exterminator: Jovon Zayas MD Calcium [Mass/Vol] 9.2 mg/dL Normal 8.6-10.4 [facility] Comment on above: Performed By: #### C P, LIP, CDP #### [facility] [address] [place], [place] [phone] Rodent Exterminator: Jovon Zayas MD Chloride [Moles/Vol] 104 mmol/L Normal 98-107 [facility] Comment on above: Performed By: #### C P, LIP, CDP #### [facility] [address] [place] [address] Rodent Exterminator: Jovon Zayas MD CO2 [Moles/Vol] 23 mmol/L Normal 20-31 [facility] Comment on above: Performed By: #### C P, LIP, CDP #### [facility] [address] [place], [place] [phone] Rodent Exterminator: Jovon Zayas MD Creatinine [Mass/Vol] 0.69 mg/dL Normal 0.50-0.90 [facility] Comment on above: Performed By: #### C P, LIP, CDP #### [facility] [address] [place], [place] [phone] Rodent Exterminator: Jovon Zayas MD GFR, Amer >60 Normal >60 [facility] Comment on above: Performed By: #### C P, LIP, CDP #### [facility] [address] [place], [place] [phone] Rodent Exterminator: Jovon Zayas MD GFR,non Amer >60 Normal >60 [facility] Comment on above: Performed By: #### C P, LIP, CDP #### [facility] [address] [place], [place] [phone] Rodent Exterminator: Jovon Zayas MD Glucose [Mass/Vol] 87 mg/dL Normal 70-99 [facility] Comment on above: Performed By: #### C P, LIP, CDP #### [address] [place], [place] [phone] Rodent Exterminator: Jovon Zayas MD Potassium [Moles/Vol] 4.3 mmol/L Normal 3.7-5.3 [facility] Comment on above: Performed By: #### C P, LIP, CDP #### [facility] [address] [place], [place] [phone] Rodent Exterminator: Jovon Zayas MD Protein [Mass/Vol] 7.0 g/dL Normal 6.4-8.3 [facility] Comment on above: Performed By: #### C P, LIP, CDP #### [facility] [address] [place], [place] [phone] Rodent Exterminator: Jovon Zayas MD Sodium [Moles/Vol] 138 mmol/L Normal 135-144 [facility] Comment on above: Performed By: #### MICHAEL Motley, CDP #### [facility] [address] [place] [address] Rodent Exterminator: Jovon Zayas MD Staging: Normal [facility] Comment on above: Result Comment: Stag e 1: Some kidney damage normal GFR Stage 2: Mild kidney damage GFR 60-89 Stage 3: Moderate kidney damage GFR 30-59 Stage 4: Severe kidney damage GFR 15-29 Stage 5: Severe kidney damage GFR <15 ESRD - chronic treatment by dialysis or transplant Performed By: #### MICHAEL Motley, CDP #### [facility] [address] [place] [address] Rodent Exterminator: Jovon Zayas MD Urea nitrogen [Mass/Vol] 13 mg/dL Normal 6-20 [facility] Comment on above: Performed By: #### MICHAEL Motley, CDP #### [facility] [address] [place] [address] Rodent Exterminator: Jovon Zayas MD [facility] Metabolic Pane [facility] 12-06-2021 Albumin [Mass/Vol] 4.4 g/dL 3.5 - 5.2 g/dL [facility] Albumin/Globulin [Mass ratio] 1.7 {ratio} [facility] ALP (Bld) [Catalytic activity/Vol] 69 U/L 35 - 104 U/L [facility] ALT [Catalytic activity/Vol] 14 U/L 5 - 33 U/L [facility] Anion gap [Moles/Vol] 11 mmol/L 9 - 17 mmol/L [facility] AST [Catalytic activity/Vol] 10 U/L <32 [facility] Bilirubin [Mass/Vol] 0.20 mg/dL Low 0.3 - 1 .2 mg/dL [facility] Calcium [Mass/Vol] 9.2 mg/dL 8.6 - 10. 4 mg/dL [facility] Chloride [Moles/Vol] 104 mmol/L 98 - 10 7 mmol/L [facility] CO2 [Moles/Vol] 23 mmol/L 20 - 31 mmol/L [facility] Creatinine [Mass/Vol] 0.69 mg/dL 0.50 - 0.90 mg/dL [facility] Free PSA/Total PSA [Mass fraction] 7.0 g/dL 6.4 - 8.3 g/dL [facility] GFR >60 >60 mL/min [facility] GFR Non- >60 >60 mL/min [facility] Glucose [Mass/Vol] 87 mg/dL 70 - 99 mg/dL [facility] Interpretation and review of laboratory results Abnormal [facility] Potassium [Moles/Vol] 4.3 mmol/L 3.7 - 5.3 mmol/L [facility] Sodium [Moles/Vol] 138 mmol/L 135 - 144 mmol/L [facility] Urea nitrogen (BldV) [Mass/Vol] 13 mg/dL 6 - 20 mg/dL [facility] Urea nitrogen/Creatinine (Bld) [Mass ratio] 19 [facility] HCG, ,Urineon 12-06 Beta HCG ( test) Ql (U) Negative Normal NEG [facility] Comment on above: Result Comment: Spec imens with hCG levels near the threshold of the test (25 mIU/mL) may give a negative or indeterminate result. In such cases, another test should be performed with a new specimen in 48-72 hours. If early is suspected clinically in this setting, correlation with quantitative serum b-hCG level is suggested. [facility] has confirmed the use of plasma for this test. This has not been cleared or approved by the U.S. Food and Drug Administration. The FDA has determined that such clearance is not necessary. Performed By: #### U HCG, UAMIC #### [facility] [address] [place] [address] Rodent Exterminator: Jovon Zayas MD Laboratory - Chemistry and C hemistry - challengeon 12-06-2021 GFR/1.73 sq M.predicted MDRD (S/P/Bld) [Vol rate/Area] [facility] Comment on above: Average GFR for 20-2 9 years old: 116 mL/min/1.73sq m Chronic Kidney Disease: <60 mL/min/1.73sq m Kidney failure: <15 mL/min/1.73sq m eGFR calculated using average adult body mass. Additional eGFR calculator available at: http://[email or web address]_[email or web address].htm Stage 1: Some kidney damage normal GFR Stage 2: Mild kidney damage GFR 60-89 Stage 3: Moderate kidney damage GFR 30-59 Stage 4: Severe kidney damage GFR 15-29 Stage 5: Severe kidney damage GFR <15 ESRD - chronic treatment by dialysis or transplant Lipaseon 12-06-2021 Lipase [Catalytic activity/Vol] 18 U/L Normal - [facility] Comment on above: Performed By: #### C P, LIP, CDP #### [facility] [address] [place] [address] Rodent Exterminator: Jovon Zayas MD Lipase [Catalytic activity/Vol] 18 U/L - U/L [facility] No Panel Informationon 12-06 [facility] , Urineon 2 Beta HCG ( test) Ql (U) Negative NEGATIVE [facility] Comment on above: Specimens with hCG l evels near the threshold of the test (25 mIU/mL) may give a negative or indeterminate result. In such cases, another test should be performed with a new specimen in 48-72 hours. If early is suspected clinically in this setting, correlation with quantitative serum b-hCG level is suggested. [facility] use of plasma for this test. This has not been cleared or approved by the U.S. Food and Drug Administration. The FDA has determined that such clearance is not necessary. [facility] Urinalysis w/ Microon 2021 ----- Normal [facility] Comment on above: Performed By: #### U HCG, UAMIC #### [facility] [address] [place] [address] Rodent Exterminator: Jovon Zayas MD Bacteria 3+ Abnormal NONE [facility] Comment on above: Performed By: #### U HCG, UAMIC #### [facility] [address] [place], [place] [phone] Rod[employer] Exterminator: Jovon Zayas MD Bilirubin, SemiQt,Ur Negative Normal NEG [facility] Comment on above: Performed By: #### U HCG, UAMIC #### [facility] [address] [place], [place] [phone] Rodent Exterminator: Jovon Zayas MD Blood, Urine 3+ Abnormal NEG [facility] Comment on above: Performed By: #### U HCG, UAMIC #### [facility] [address] [place], [place] [phone] Rodent Exterminator: Jovon Zayas MD Clarity (U) Clear Normal CLEAR [facility] Comment on above: Performed By: #### U HCG, UAMIC #### [facility] [address] [place], [place] [phone] Rodent Exterminator: Jovon Zayas MD Color (U) Yellow Normal YEL [facility] Comment on above: Performed By: #### U HCG, UAMIC #### [facility] [address] [place] [address] [place] [place], [place] [phone] Rodent Exterminator: Jovon Zayas MD Epithelial cells LM Ql (Urine sed) 2 TO 5 Normal 0-25 [facility] Comment on above: Performed By: #### U HCG, UAMIC #### [facility] [address] [place], [place] [phone] Rodent Exterminator: Jovon Zayas MD Glucose Ql (U) Negative Normal NEG [facility] in Hospital Comment on above: Performed By: #### U HCG, UAMIC #### [facility] [address] [place] [address] Rodent Exterminator: Jovon Zayas MD Ketones Ql (U) Negative Normal NEG [facility] in Hospital Comment on above: Performed By: #### U HCG, UAMIC #### [facility] [address] [place], [place] [phone] Rodent Exterminator: Jovon Zayas MD Leukocyte esterase Test strip Ql (U) LARGE Abnormal NEG [facility] Comment on above: Performed By: #### U HCG, UAMIC #### [facility] [address] [place], [place] [phone] Rodent Exterminator: Jovon Zayas MD Nitrite,Ur Positive Abnormal NEG [facility] Comment on above: Performed By: #### U HCG, UAMIC #### [facility] [address] [place], [place] [phone] Rodent Exterminator: Jovon Zayas MD PH,Ur 6.0 Normal 5.0-9.0 [facility] Comment on above: Performed By: #### U HCG, UAMIC #### [facility] [address] [place], [place] [phone] Rodent Exterminator: Jovon Zayas MD Protein Ql (U) Negative Normal NEG [facility] Comment on above: Performed By: #### U HCG, UAMIC #### [facility] [address] [place], [place] [phone] Rodent Exterminator: Jovon Zayas MD Spec. [place],Ur 1.015 Normal 1.010-1.020 [facility] Comment on above: Performed By: #### U HCG, UAMIC #### [facility] [address] [place], [place] [phone] Rodent Exterminator: Jovon Zayas MD Urine RBC's 5 TO 10 Normal 0-2 [facility] Comment on above: Performed By: #### U HCG, UAMIC #### [facility] [address] [place], [place] [phone] Rodent Exterminator: Jovon Zayas MD Urine WBC's 50 TO 100 Normal 0-5 [facility] Comment on above: Performed By: #### U HCG, UAMIC #### [facility] [address] [place] [address] Rodent Exterminator: Jovon Zayas MD Urobilinogen,Ur Normal Normal NORM [facility] Comment on above: Performed By: #### U HCG, UAMIC #### [facility] [address] [place] [address] Rodent Exterminator: Jovon Zayas MD Urinalysis with Microscopico n 12-06-2021 - [facility] Bacteria, UA 3+ Abnormal None [facility] Bilirubin Urine Negative NEGATIVE [facility] Color, UA Yellow Yellow [facility] Epithelial Cells UA 2 TO 5 [facility] Glucose, Ur Negative NEGATIVE [facility] Interpretation and review of laboratory results Abnormal [facility] Ketones Ql (U) Negative NEGATIVE [facility] Leukocyte esterase Test strip Ql (U) LARGE Abnormal NEGATIVE [facility] Nitrite, Urine Positive Abnormal NEGATIVE [facility] pH, UA 6.0 [facility] Protein, UA Negative NEGATIVE [facility] RBC, UA 5 TO 10 [facility] Specific [place], UA 1.015 [facility] Turbidity UA Clear Clear [facility] Urine Hgb 3+ Abnormal NEGATIVE [facility] Urobilinogen, Urine Normal Normal [facility] WBC, UA 50 TO 100 [facility] HCG, ,Urineon 10-16 Beta HCG ( test) Ql (U) Negative Normal NEG [facility] Comment on above: Result Comment: Spec imens with hCG levels near the threshold of the test (25 mIU/mL) may give a negative or indeterminate result. In such cases, another test should be performed with a new specimen in 48-72 hours. If early is suspected clinically in this setting, correlation with quantitative serum b-hCG level is suggested. [employer] has confirmed the use of plasma for this test. This has not been cleared or approved by the U.S. Food and Drug Administration. The FDA has determined that such clearance is not necessary. Performed By: #### U HCG, UAX, UMICAO #### [facility] [address] [place], [place] [phone] Rodent Exterminator: Jovon Zayas MD UA w/Reflex Cultureon 2021 Bilirubin, SemiQt,Ur Negative Normal NEG [facility] Comment on above: Performed By: #### U HCG, UAX, UMICAO #### [facility] [address] [place], [place] [phone] Rodent Exterminator: Jovon Zayas MD Blood, Urine Negative Normal NEG [facility] Comment on above: Performed By: #### U HCG, UAX, UMICAO #### [facility] [address] [place], [place] [phone] Rodent Exterminator: Jovon Zayas MD Clarity (U) Clear Normal CLEAR [facility] Comment on above: Performed By: #### U HCG, UAX, UMICAO #### [facility] [address] [place], [place] 1888883 Rodent Exterminator: Jovon Zayas MD Color (U) Yellow Normal YEL [facility] Comment on above: Performed By: #### U HCG, UAX, UMICAO #### [facility] [address] [place], [place] [phone] Rodent Exterminator: Jovon Zayas MD Glucose Ql (U) Negative Normal NEG [facility] in Hospital Comment on above: Performed By: #### U HCG, UAX, UMICAO #### [facility] [address] [place], [place] [phone] Rodent Exterminator: Jovon Zayas MD Ketones Ql (U) TRACE Abnormal NEG [facility] Comment on above: Performed By: #### U HCG, UAX, UMICAO #### [facility] [address] [place] [address] Rodent Exterminator: Jovon Zayas MD Leukocyte esterase Test strip Ql (U) Negative Normal NEG [facility] Comment on above: Performed By: #### U HCG, UAX, UMICAO #### [facility] [address] [place], [place] [phone] Rodent Exterminator: Jovon Zayas MD Nitrite,Ur Negative Normal NEG [facility] Comment on above: Performed By: #### U HCG, UAX, UMICAO #### [facility] [address] [place], [place] [phone] Rodent Exterminator: Jovon Zayas MD PH,Ur 6.0 Normal 5.0-9.0 [facility] Comment on above: Performed By: #### U HCG, UAX, UMICAO #### [facility] [address] [place], [place] [phone] Rodent Exterminator: Jvoon Zayas MD Protein Ql (U) Negative Normal NEG [facility] Comment on above: Performed By: #### U HCG, UAX, UMICAO #### [facility] [address] [place], [place] [phone] Rodent Exterminator: Jovon Zayas MD Spec. [place],Ur >1.030 High 1.010-1.020 [facility] Comment on above: Performed By: #### U HCG, UAX, UMICAO #### [facility] [address] [place], [place] [phone] Rodent Exterminator: Jovon Zayas MD Urobilinogen,Ur Normal Normal NORM [facility] Comment on above: Performed By: #### U HCG, UAX, UMICAO #### [facility] [address] [place] [address] Rodent Exterminator: Jovon Zayas MD Urinalysis,Microon 2 ----- Normal [facility] Comment on above: Performed By: #### U HCG, UAX, UMICAO #### [facility] [address] [place] [address] Rodent Exterminator: Jovon Zayas MD Bacteria 1+ Abnormal NONE [facility] Comment on above: Performed By: #### U HCG, UAX, UMICAO #### [facility] [address] [place], [place] [phone] Rodent Exterminator: Jovon Zayas MD Epithelial cells LM Ql (Urine sed) 5 TO 10 Normal 0-25 [facility] Comment on above: Performed By: #### U HCG, UAX, UMICAO #### [facility] [address] [place] [address] Rodent Exterminator: Jovon Zayas MD Urine RBC's 0 TO 2 Normal 0-2 [facility] Comment on above: Performed By: #### U HCG, UAX, UMICAO #### [facility] [address] [place] [address] [place] [address] Rodent Exterminator: Jovon Zayas MD Urine WBC's 0 TO 2 Normal 0-5 [facility] Comment on above: Performed By: #### U HCG, UAX, UMICAO #### [address] [place] [address] Rodent Exterminator: Jovon Zayas MD HCG, ,Urineon 01-16 Beta HCG ( test) Ql (U) Negative Normal NEG [facility] Comment on above: Result Comment: Spec imens with hCG levels near the threshold of the test (25 mIU/mL) may give a negative or indeterminate result. In such cases, another test should be performed with a new specimen in 48-72 hours. If early is suspected clinically in this setting, correlation with quantitative serum b-hCG level is suggested. [facility] has confirmed the use of plasma for this test. This has not been cleared or approved by the U.S. Food and Drug Administration. The FDA has determined that such clearance is not necessary. Performed By: #### U HCG, UAMIC #### [facility] [address] [place] [address] [place] [address] Rodent Exterminator: Jovon Zayas MD , UrineOrdered By: Zak Kent on 01-16-2021 Beta HCG ( test) Ql (U) Negative NEGATIVE [facility] [email or web address] Phone: Comment on above: Specimens with hCG l evels near the threshold of the test (25 mIU/mL) may give a negative or indeterminate result. In such cases, another test should be performed with a new specimen in 48-72 hours. If early is suspected clinically in this setting, correlation with quantitative serum b-hCG level is suggested. [employer] has confirmed the use of plasma for this test. This has not been cleared or approved by the U.S. Food and Drug Administration. The FDA has determined that such clearance is not necessary. [employer] Phone: Urinalysis w/ Microon 2020 ----- Normal [facility] Comment on above: Performed By: #### U HCG, UAMIC #### [facility] [address] [place] [address] Rodent Exterminator: Jovon Zayas MD Bilirubin, SemiQt,Ur Negative Normal NEG [facility] Comment on above: Performed By: #### U HCG, UAMIC #### [facility] [address] [place] [address] [place] [address] Rodent Exterminator: Jovon Zayas MD Blood, Urine Negative Normal NEG [facility] Comment on above: Performed By: #### U HCG, UAMIC #### [facility] [address] [place] [address] Rodent Exterminator: Jovon Zayas MD Clarity (U) CLEAR Normal CLEAR [facility] Comment on above: Performed By: #### U HCG, UAMIC #### [facility] [address] [place] [address] Rodent Exterminator: Jovon Zayas MD Color (U) YELLOW Normal YEL [facility] Comment on above: Performed By: #### U HCG, UAMIC #### [facility] [address] [place], [place] [phone] Rodent Exterminator: Jovon Zayas MD Epithelial cells LM Ql (Urine sed) 0 TO 2 Normal 0-25 [facility] Comment on above: Performed By: #### U HCG, UAMIC #### [facility] [address] [place], [place] [phone] Rodent Exterminator: Jovon Zayas MD Glucose Ql (U) Negative Normal NEG [facility] Comment on above: Performed By: #### U HCG, UAMIC #### [facility] [address] [place], [place] [phone] Rodent Exterminator: Jovon Zayas MD Ketones Ql (U) Negative Normal NEG [facility] Comment on above: Performed By: #### U HCG, UAMIC #### [facility] [address] [place], [place] [phone] Rodent Exterminator: Jovon Zayas MD Leukocyte esterase Test strip Ql (U) Negative Normal NEG [facility] Comment on above: Performed By: #### U HCG, UAMIC #### [facility] [address] [place], [place] [phone] Rodent Exterminator: Jovon Zayas MD Nitrite,Ur Negative Normal NEG [facility] Comment on above: Performed By: #### U HCG, UAMIC #### [facility] [address] [place], [place] 499[address]83 Rodent Exterminator: Jovon Zayas MD PH,Ur 6.5 Normal 5.0-9.0 [facility] Comment on above: Performed By: #### U HCG, UAMIC #### [facility] [address] [place], [place] [phone] Rodent Exterminator: Jovon Zayas MD Protein Ql (U) Negative Normal NEG [facility] Comment on above: Performed By: #### U HCG, UAMIC #### [facility] [address] [place], [place] [address]83 Rodent Exterminator: Jovon Zayas MD Spec. [place],Ur 1.025 High 1.010-1.020 [facility] Comment on above: Performed By: #### U HCG, UAMIC #### [facility] [address] [place], [place] [phone] Rodent Exterminator: Jovon Zayas MD Urine RBC's 0 TO 2 Normal 0-2 [facility] Comment on above: Performed By: #### U HCG, UAMIC #### [facility] [address] [place], [place] [phone] Rodent Exterminator: Jovon Zayas MD Urine WBC's None Normal 0-5 [facility] Comment on above: Performed By: #### U HCG, UAMIC #### [facility] [address] [place] [address] Rodent Exterminator: Jovon Zayas MD Urobilinogen,Ur Normal Normal NORM [facility] Comment on above: Performed By: #### U HCG, UAMIC #### [facility] [address] [place] [address] Rodent Exterminator: Jovon Zayas MD Amorphous sediment LM Ql (Urine sed) NOT REPORTED Normal [facility] Comment on above: Performed By: #### U HCG, UAMIC #### [facility] [address] [place], [place] [phone] Rodent Exterminator: Jovon Zayas MD Bacteria NOT REPORTED Normal [facility] Comment on above: Performed By: #### U HCG, UAMIC #### [facility] [address] [place], [place] [phone] Rodent Exterminator: Jovon Zayas MD Casts NOT REPORTED Normal [facility] Comment on above: Performed By: #### U HCG, UAMIC #### [facility] [address] [place] [address] Rodent Exterminator: Jovon Zayas MD Comment NOT REPORTED Normal [facility] Comment on above: Performed By: #### U HCG, UAMIC #### [facility] [address] [place] [address] Rodent Exterminator: Jovon Zayas MD Crystals LM Nom (Urine sed) NOT REPORTED Normal NONE [facility] Comment on above: Performed By: #### U HCG, UAMIC #### [facility] [address] [place], [place] [phone] Rodent Exterminator: Jovon Zayas MD Epithelial, Renal NOT REPORTED Normal 0 [facility] Comment on above: Performed By: #### U HCG, UAMIC #### [facility] [address] [place], [place] [phone] Rodent Exterminator: Jovon Zayas MD Mucus Strands NOT REPORTED Normal [facility] Comment on above: Performed By: #### U HCG, UAMIC #### [facility] [address] [place] [address] Rodent Exterminator: Jovon Zayas MD Other Observations NOT REPORTED [facility] Comment on above: Performed By: #### U HCG, UAMIC #### [facility] [address] [place] [address] Rodent Exterminator: Jovon Zayas MD Trichomonas NOT REPORTED Normal NONE [facility] Comment on above: Performed By: #### U HCG, UAMIC #### [facility] [address] [place], [place] [phone] Rodent Exterminator: Jovon Zayas MD Yeast NOT REPORTED Normal [facility] Comment on above: Performed By: #### U HCG, UAMIC #### [facility] [address] [place], [place] [phone] Rodent Exterminator: Jovon Zayas MD Urinalysis with MicroscopicO rdered By: Zak Kent on 01-16-2021 - [facility] Work Phone: Amorphous, UA NOT REPORTED None [facility] Work Phone: Bacteria, UA NOT REPORTED None [facility] Work Phone: Bilirubin Urine Negative NEGATIVE [facility] Work Phone: Casts UA NOT REPORTED /LPF [facility] Work Phone: Color, UA YELLOW YELLOW [facility] Work Phone: Crystals, UA NOT REPORTED None /HPF [facility] Work Phone: Epithelial Cells UA 0 TO 2 [facility] Work Phone: Glucose, Ur Negative NEGATIVE [facility] Work Phone: Interpretation and review of laboratory results Abnormal [facility] [employer] Work Phone: Ketones Ql (U) Negative NEGATIVE [facility] Work Phone: Leukocyte esterase Test strip Ql (U) Negative NEGATIVE [facility] Work Phone: Mucus, UA NOT REPORTED None [facility] Work Phone: Nitrite, Urine Negative NEGATIVE [facility] Work Phone: Other Observations UA NOT REPORTED NOT REQ. M [facility] Work Phone: pH, UA 6.5 [facility] Work Phone: Protein, UA Negative NEGATIVE [facility] Work Phone: RBC, UA 0 TO 2 [facility] Work Phone: Renal Epithelial, UA NOT REPORTED 0 /HPF [facility] Work Phone: Specific [place], UA 1.025 [facility] Work Phone: Trichomonas, UA NOT REPORTED None [facility] Work Phone: Turbidity UA CLEAR CLEAR [facility] [employer] Work Phone: Urinalysis Comments NOT REPORTED [facility] Work Phone: Urine Hgb Negative NEGATIVE [facility] [employer] Work Phone: Urobilinogen, Urine Normal Normal [facility] [employer] Work Phone: WBC, UA None [facility] [employer] Work Phone: Yeast, UA NOT REPORTED None [facility] [employer] Work Phone: [facility] [employer] Work Phone: CBC Auto DifferentialOrdered By: Rodolfo Mckenzie on 11-26-2020 [employer] # 0.39 [facility] Work Phone: [employer] Immature Granulocyte 0.03 [facility] [employer] Work Phone: [employer] Lymph # 3.68 [facility] Work Phone: [employer] [place] # 0.82 [facility] Work Phone: Basophils (Bld) [#/Vol] 0.10 10*3/uL [facility] [employer] Work Phone: Basophils/100 WBC (Bld) 1 % 0 - 2 % M [facility] [employer] Work Phone: Differential Type NOT REPORTED [facility] [employer] Work Phone: Eosinophils/100 WBC (Bld) 3 % 1 - 4 % [facility] [employer] Work Phone: Hematocrit (Bld) [Volume fraction] 48.0 % High 36.3 - 47.1 % [facility] [employer] Work Phone: Hemoglobin.gastrointest inal spec 1 Ql (Stl) 15.5 g/dL High 11.9 - 15.1 g/dL [facility] [employer] Work Phone: Immature granulocytes/100 WBC (Bld) 0 % 0 [facility] [employer] Work Phone: Interpretation and review of laboratory results Abnormal [employer] Phone: Lymphocytes/100 WBC (Bld) 32 % 24 - 43 % [employer] Phone: MCH (RBC) [Entitic mass] 29.8 pg 25.2 - 33.5 pg [employer] Phone: MCHC (RBC) [Mass/Vol] 32.3 g/dL 28.4 - 34.8 g/dL [employer] Phone: MCV (RBC) [Entitic vol] 92.1 fL 82.6 - 102.9 fL [employer] Phone: Monocytes/100 WBC (Bld) 7 % 3 - 12 % M [facility] [place] Phone: NRBC Automated 0.0 0.0 per 100 WBC [employer] Phone: Platelet distribution width (Bld) [Ratio] 13.5 % 11.8 - 14.4 % [employer] Phone: Platelet Estimate NOT REPORTED [employer] Phone: Platelet mean volume (Bld) [Entitic vol] 9.5 fL 8.1 - 13.5 fL [employer] Phone: Platelets (Bld) [#/Vol] 264 10*3/uL [employer] Phone: RBC (Bld) [#/Vol] 5.21 10*6/uL High 3.95 - 5.1 1 m/uL [employer] Phone: RBC (Bld) [#/Vol] NOT REPORTED [employer] Phone: Segmented neutrophils/100 WBC (Bld) 57 % 36 - 65 % [employer] Phone: Segs Absolute 6.51 [employer] Work Phone: WBC (Bld) [#/Vol] 11.5 10*3/uL High [employer] Phone: WBC (Bld) [#/Vol] NOT REPORTED [employer] Phone: [employer] Phone: Comprehensive Metabolic Pane l w/ Reflex to MGOrdered By: Rodolfo Mckenzie on 11-26-2020 Albumin [Mass/Vol] 4.2 g/dL 3.5 - 5.2 g/dL [employer] Phone: Albumin/Globulin [Mass ratio] 1.4 {ratio} [employer] Phone: ALP (Bld) [Catalytic activity/Vol] 94 U/L 35 - 104 U/L [employer] Phone: ALT [Catalytic activity/Vol] 11 U/L 5 - 33 U/L [employer] Phone: Anion gap [Moles/Vol] 11 mmol/L 9 - 17 mmol/L [employer] Phone: AST [Catalytic activity/Vol] 11 U/L <32 [employer] Phone: Bilirubin [Mass/Vol] 0.33 mg/dL 0.3 - 1 .2 mg/dL [employer] Phone: Calcium [Mass/Vol] 8.9 mg/dL 8.6 - 10. 4 mg/dL [employer] Phone: Chloride [Moles/Vol] 105 mmol/L 98 - 10 7 mmol/L [employer] Phone: CO2 [Moles/Vol] 23 mmol/L 20 - 31 mmol/L [employer] Phone: Creatinine [Mass/Vol] 0.54 mg/dL 0.50 - 0.90 mg/dL [employer] Phone: Free PSA/Total PSA [Mass fraction] 7.2 g/dL 6.4 - 8.3 g/dL [employer] Phone: GFR >60 >60 mL/min [employer] Phone: GFR Non- >60 >60 mL/min [employer] Phone: Glucose [Mass/Vol] 87 mg/dL 70 - 99 mg/dL [employer] Phone: Potassium [Moles/Vol] 4.1 mmol/L 3.7 - 5.3 mmol/L [employer] Phone: Sodium [Moles/Vol] 139 mmol/L 135 - 144 mmol/L [employer] Phone: Urea nitrogen (BldV) [Mass/Vol] 10 mg/dL 6 - 20 mg/dL [employer] Phone: Urea nitrogen/Creatinine (Bld) [Mass ratio] 19 [employer] Phone: HCG Qualitative, SerumOrdere d By: Rodolfo Mckenzie on 11-26-2020 hCG Qual Negative NEGATIVE [employer] Phone: Comment on above: Specimens with hCG l evels near the threshold of the test (25 mIU/mL) may give a negative or indeterminate result. In such cases, another test should be performed with a new specimen in 48-72 hours. If early is suspected clinically in this setting, correlation with quantitative serum b-hCG level is suggested. [employer] has confirmed the use of plasma for this test. This has not been cleared or approved by the U.S. Food and Drug Administration. The FDA has determined that such clearance is not necessary. [employer] Phone: Laboratory - Chemistry and C hemistry - challengeOrdered By: Rodolfo Mckenzie on 11-26-2020 GFR/1.73 sq M.predicted MDRD (S/P/Bld) [Vol rate/Area] [employer] Phone: Comment on above: Average GFR for 20-2 9 years old: 116 mL/min/1.73sq m Chronic Kidney Disease: <60 mL/min/1.73sq m Kidney failure: <15 mL/min/1.73sq m eGFR calculated using average adult body mass. Additional eGFR calculator available at: http://www.BetaUsersNow.com/multiple_crcl_2012.htm Stage 1: Some kidney damage normal GFR Stage 2: Mild kidney damage GFR 60-89 Stage 3: Moderate kidney damage GFR 30-59 Stage 4: Severe kidney damage GFR 15-29 Stage 5: Severe kidney damage GFR <15 ESRD - chronic treatment by dialysis or transplant LipaseOrdered By: RodolfoSteve on 11-26-2020 Lipase [Catalytic activity/Vol] 13 U/L 13 - 60 U/L [employer] Phone: No Panel InformationOrdered By: Rodolfochava Mckenzie on 11-26-2020 [employer] Phone: CBC AUTO DIFFon 06-13-2019 Basophils (Bld) [#/Vol] 0.0 103/ul Normal 0.0-0.1 [facility] Comment on above: Performed By: #### C BC #### [facility] [address] [place], [place] [address] Linda Angeline Basophils/100 WBC (Bld) 0.5 % Normal 0.2-2.0 [facility] Comment on above: Performed By: #### C BC #### [facility] [address] [place], [place] [address] Linda Angeline Eosinophils (Bld) [#/Vol] 0.3 103/ul Normal 0.0-0.7 [facility] Comment on above: Performed By: #### C BC #### [facility] [address] [place], [place] [address] Linda Angeline Eosinophils/100 WBC (Bld) 3.2 % Normal 0.9-7.0 [facility] Comment on above: Performed By: #### C BC #### [facility] [address] [place] [address] Linda Angeline Erythrocyte distribution width (RBC) [Ratio] 13.0 % Normal 11.0-15.0 [facility] Comment on above: Performed By: #### C BC #### [facility] [address] [place] [address] Linda Angeline Hematocrit (Bld) [Volume fraction] 48.1 % Critically high 36.0-48.0 [facility] Comment on above: Performed By: #### C BC #### [facility] [address] [place] [phone] Linda Angeline Hemoglobin (Bld) [Mass/Vol] 15.8 g/dL Normal 12.0-16.0 [facility] Comment on above: Performed By: #### C BC #### [facility] [address] [address] Linda Angeline IG # 0.02 10e3/ul Normal 0.00-0.03 [facility] Comment on above: Performed By: #### C BC #### [facility] [address] [place] [address] Linda Angeline IG % 0.2 % Normal 0.0-0.5 [facility] Comment on above: Performed By: #### C BC #### [facility] [address] [place] [address] Linda Angeline Lymphocytes (Bld) [#/Vol] 2.0 103/ul Normal 1.2-3.8 [facility] Comment on above: Performed By: #### C BC #### [facility] [address] [place] [address] Linda Angeline Lymphocytes/100 WBC (Bld) 24.0 % Normal 20.5-60.0 [facility] Comment on above: Performed By: #### C BC #### [facility] [address] [place] [address] Linda Angeline MANUAL DIFF REQ NO Normal [facility] Comment on above: Performed By: #### C BC #### [facility] [address] [place], [place] [phone] Linda Angeline MCH (RBC) [Entitic mass] 29.6 pg Normal 26.7-34.0 [facility] Comment on above: Performed By: #### C BC #### [facility] [address] [place] [address] Lindaambika Carmichaelen MCHC (RBC) [Mass/Vol] 32.8 g/dL Normal 29.9-35.2 [facility] Comment on above: Performed By: #### C BC #### [facility] [address] [place], [place] [address] Linda Angeline MCV (RBC) [Entitic vol] 90.1 fL Normal 81.0-99.0 [facility] Comment on above: Performed By: #### C BC #### [facility] [address] [place], [place] [address] Linda Angeline Monocytes (Bld) [#/Vol] 0.5 103/ul Normal 0.3-0.8 [facility] Comment on above: Performed By: #### C BC #### [facility] [address] [place], [place] [address] Linda Angeline Monocytes/100 WBC (Bld) 5.5 % Normal 1.7-12.0 [facility] Comment on above: Performed By: #### C BC #### [facility] [address] [place], [place] [address] Linda Angeline Neutrophils (Bld) [#/Vol] 5.6 103/ul Normal 1.4-6.5 [facility] Comment on above: Performed By: #### C BC #### [facility] [address] [place] [address] Linda Angeline Neutrophils/100 WBC (Bld) 66.6 % Normal 43.0-75.0 [facility] Comment on above: Performed By: #### C BC #### [facility] [address] [place], [place] [address] Linda Angeline Platelet mean volume (Bld) [Entitic vol] 10.1 fL Normal 9.5-13.5 [facility] Comment on above: Performed By: #### C BC #### [facility] [address] [place], [place] [address] Linda Angeline Platelets (Bld) [#/Vol] 157 103/ul Normal 150-450 [facility] Comment on above: Performed By: #### C BC #### [facility] [address] [place], [place] [address] Linda Angeline RBC (Bld) [#/Vol] 5.34 106/ul Normal 4.20-5.40 [facility] Comment on above: Performed By: #### C BC #### [facility] [address] [place] [address] Linda Angeline WBC (Bld) [#/Vol] 8.4 103/ul Normal 4.0-11.0 [facility] Comment on above: Performed By: #### C BC #### [facility] [address] [place], [place] [phone] Lindaambika Marcus LIPASEon 06-13-2019 Lipase [Catalytic activity/Vol] 69.0 U/L Normal 23.0-300.0 [facility] Comment on above: Performed By: #### L IPA, CMP #### [facility] [address] [place], [place] [phone] Lnida Angeline MONOon 06-13-2019 Monocytes (Bld) [#/Vol] Negative Normal NEGATIVE [facility] Comment on above: Performed By: #### M ARIANE #### [facility] [address] [place], [place] [phone] Linda Angeline PREG HCG QUALon 06-13-2019 , QUAL Negative Normal NEGATIVE [facility] Comment on above: Performed By: #### P REG #### [facility] [address] [place], [place] [phone] Linda Marcus PROF 14(COMP METB)on 020 Albumin [Mass/Vol] 3.7 g/dL Normal 3.5-5.0 [facility] Comment on above: Performed By: #### L IPA, CMP #### [facility] [address] [place], [place] [phone] Linda Angeline Albumin/Globulin [Mass ratio] 1.1 {ratio} Normal [facility] Comment on above: Performed By: #### L IPA, CMP #### [facility] [address] [place] [address] Linda Angeline ALP [Catalytic activity/Vol] 87 U/L Normal 38-126 [facility] Comment on above: Performed By: #### L IPA, CMP #### [facility] [address] [place] [phone] Linda Angeline ALT [Catalytic activity/Vol] 20 U/L Normal 9-52 [facility] Comment on above: Performed By: #### L IPA, CMP #### [facility] [address] [place] [phone] Linda Angeline Anion gap [Moles/Vol] 10.8 mmol/L Normal Th e [facility] Comment on above: Performed By: #### L IPA, CMP #### [facility] [address] [place] [phone] Linda Angeline AST [Catalytic activity/Vol] 15 U/L Normal 14-36 [facility] Comment on above: Performed By: #### L IPA, CMP #### [facility] [address] [place] [address] Linda Angeline Bilirubin Ql (U) 0.3 mg/dL Normal 0.2-1.3 [facility] Comment on above: Performed By: #### L IPA, CMP #### [facility] [address] [place] [phone] Linda Angeline Calcium [Mass/Vol] 8.4 mg/dL Normal 8.4-10.2 [facility] Comment on above: Performed By: #### L IPA, CMP #### [facility] [address] [place] [address] Linda Angeline Chloride [Moles/Vol] 106 mmol/L Normal 98-107 [facility] Comment on above: Performed By: #### L IPA, CMP #### [facility] [address] [place] [phone] Linda Angeline CO2 [Moles/Vol] 24.9 mmol/L Normal 22.0-30.0 [facility] Comment on above: Performed By: #### L IPA, CMP #### [facility] [address] [place] [address] Linda Angeline Creatinine [Mass/Vol] 0.72 mg/dL Normal 0.52-1.04 [facility] Comment on above: Performed By: #### L IPA, CMP #### [facility] [address] [place], [place] [address] Linda Angeline EGFR-AF LIBERIAN >60 Normal >=60 [facility] Comment on above: Performed By: #### L IPA, CMP #### [facility] [address] [place], [place] [address] Linda Angeline EGFR-NON AF LIBERIAN >60 Normal >=60 [facility] Comment on above: Performed By: #### L IPA, CMP #### [facility] [address] [place] [phone] Linda Angeline Globulin (S) [Mass/Vol] 3.5 g/dL Normal [facility] Comment on above: Performed By: #### L IPA, CMP #### [facility] [address] [place] [phone] Linda Angeline Glucose [Mass/Vol] 100 mg/dL Normal 74-106 [facility] Comment on above: Performed By: #### L IPA, CMP #### [facility] [address] [place] [phone] Linda Angeline Potassium [Moles/Vol] 3.7 mmol/L Normal 3.4-5.0 [facility] Comment on above: Performed By: #### L IPA, CMP #### [facility] [address] [place] [phone] Linda Angeline Protein [Mass/Vol] 7.2 g/dL Normal 6.1-8.2 [facility] Comment on above: Performed By: #### L IPA, CMP #### [facility] [address] [place] [phone] Linda Angeline Sodium [Moles/Vol] 138 mmol/L Normal 137-145 [facility] Comment on above: Performed By: #### L IPA, CMP #### [facility] [address] [place] [phone] Linda Angeline Urea nitrogen [Mass/Vol] 13.0 mg/dL Normal 7.0-17.0 [facility] Comment on above: Performed By: #### L IPA, CMP #### [facility] [address] [place], [place] [address] Linda Marcus Urea nitrogen/Creatinine [Mass ratio] 18.1 mg/mg Normal [facility] Comment on above: Performed By: #### L IPA, CMP #### [facility] [address] [place], [place] [address] Linda Marcus XR ABD FLAT UP/PA Yary 06-13 XR ABD FLAT UP/PA CH Patient: JOHN YAÑEZ Exam Date: 06/13/2019 : 1995 Gender:F Ordering : TOMY HUITRON Admission #: [id number] Family : DR JUDY BOOTH . Order #: [id number] CLICK HERE TO VIEW EXAM RADIOLOGY REPORT [...] Fernandez M.D. on 06/13/2019 at 12:18 Normal [facility] Vital Signs Date Time Vital Sign Value Performing Clinician Vidai armen 12-06-2021 17:53-0400 Body mass index (BMI) [Ratio] 46.35 kg/m2 Judith Smyth MD Work Phone: [facility] 12-06-2021 17:53-0400 Body temperature 98.4 [degF] Judith Smyth MD Work Phone: [facility] 12-06-2021 17:53-0400 Body weight 122.47 kg Judith Smyth MD Work Phone: [facility] 12-06-2021 17:53-0400 Diastolic blood pressure 77 mm[Hg] Judith Smyth MD Work Phone: [facility] [employer] 12-06-2021 17:53-0400 Heart rate 97 /min Judith Smyth MD Work Phone: [facility] [employer] 12-06-2021 17:53-0400 Respiratory rate 20 /min Judith Smyth MD Work Phone: [facility] [employer] 12-06-2021 17:53-0400 SaO2% (BldA) [Mass fraction] 100 % Judith Smyth MD Work Phone: [facility] [employer] 12-06-2021 17:53-0400 Systolic blood pressure 112 mm[Hg] Judith Smyth MD Work Phone: [facility] [employer] 08-08-2021 09:08-0400 Body temperature 98.4 [degF] Nancie Masonis DO Work Phone: [employer] 08-08-2021 09:08-0400 Diastolic blood pressure 86 mm[Hg] Nancie Masonis DO Work Phone: [employer] 08-08-2021 09:08-0400 Heart rate 89 /min Nancie Jesus DO Work Phone: [employer] 08-08-2021 09:08-0400 Respiratory rate 20 /min Nancie Jesus DO Work Phone: [employer] 08-08-2021 09:08-0400 SaO2% (BldA) [Mass fraction] 96 % Nancie Jesus DO Work Phone: [employer] 08-08-2021 09:08-0400 Systolic blood pressure 147 mm[Hg] Nancie Jesus DO Work Phone: [employer] 04-29-2021 21:53-0500 Body temperature 97.39 [degF] Jesus Paniagua DO Work Phone: [employer] 04-29-2021 21:53-0500 Diastolic blood pressure 78 mm[Hg] Jesus Paniagua DO Work Phone: [employer] 04-29-2021 21:53-0500 Heart rate 101 /min Jesus Paniagua DO Work Phone: [employer] 04-29-2021 21:53-0500 Respiratory rate 17 /min Jesus Paniagua DO Work Phone: [employer] 04-29-2021 21:53-0500 SaO2% (BldA) [Mass fraction] 98 % Jesus Paniagua DO Work Phone: [employer] 04-29-2021 21:53-0500 Systolic blood pressure 132 mm[Hg] Jesus Paniagua DO Work Phone: [employer] 01-15-2021 23:51-0400 Body temperature 98.01 [degF] Zak Kent DO Work Phone: [employer] Phone: 01-15-2021 23:49-0400 Diastolic blood pressure 81 mm[Hg] Zak Kent DO Work Phone: [employer] Work Phone: 01-15-2021 23:49-0400 SaO2% (BldA) [Mass fraction] 100 % Zak Kent DO Work Phone: [employer] Phone: 01-15-2021 23:49-0400 Systolic blood pressure 129 mm[Hg] Zak Kent DO Work Phone: [employer] Work Phone: 01-01-2021 22:22-0400 Body temperature 97.59 [degF] Nancie Jesus DO Work Phone: [employer] Phone: 01-01-2021 22:20-0400 Diastolic blood pressure 94 mm[Hg] Nancie Jesus DO Work Phone: [employer] Phone: 01-01-2021 22:20-0400 Heart rate 89 /min Nancie Jesus DO Work Phone: [employer] Phone: 01-01-2021 22:20-0400 Respiratory rate 18 /min Nancie Jesus [employer] Work Phone: [employer] Phone: 01-01-2021 22:20-0400 SaO2% (BldA) [Mass fraction] 98 % Nancie Jesus [employer] Work Phone: [employer] Phone: 01-01-2021 22:20-0400 Systolic blood pressure 156 mm[Hg] Nancie Jesus [employer] Work Phone: [employer] Phone: 11-26-2020 13:00-0400 Diastolic blood pressure 69 mm[Hg] [employer] Phone: 11-26-2020 13:00-0400 Systolic blood pressure 100 mm[Hg] [employer] Phone: 11-26-2020 12:57-0400 Body temperature 97.3 [degF] [employer] Phone: 11-26-2020 12:57-0400 Heart rate 82 /min [employer] Phone: 11-26-2020 12:57-0400 Respiratory rate 18 /min [employer] Phone: 11-26-2020 12:57-0400 SaO2% (BldA) [Mass fraction] 100 % [employer] Phone: Encounters Encounter Date Encounter Type Care Provider Facility Start: 01-22-2024 End: 01-22-2024 ambulatory FELIX NAJERA [facility] Start: 01-21-2024 End: 01-21-2024 Telephone encounter Felix Najera [employer] Work Phone: [facility] Start: 07-12-2023 End: 07-12-2023 Emergency department patient visit NO PCP NO PCP [facility] Start: 12-06-2021 End: 12-06-2021 Emergency department patient visit ELIA MEDINA [facility] Start: 12-06-2021 End: 12-06-2021 Emergency department patient visit Judith Smyth MD Work Phone: [facility] Comment on above: Urinary tract infect ion without hematuria, site unspecified (Primary Dx); Flank pain Start: 10-16-2021 End: 10-16-2021 Emergency department patient visit NANCIE Corral [facility] Start: 08-08-2021 End: 08-08-2021 Emergency department patient visit NANCIE Corral [facility] Start: 08-08-2021 End: 08-08-2021 Emergency department patient visit Nancie Jesus DO Work Phone: [facility] Comment on above: Pain due to dental c roxana (Primary Dx) Start: 04-29-2021 End: 04-30-2021 Emergency department patient visit JESUS COLLAZOMateusz [facility] Start: 04-29-2021 End: 04-29-2021 Emergency department patient visit Jesus Crawley [facility] Work Phone: [facility] Comment on above: Arm pain, anterior, right (Primary Dx) Start: 01-16-2021 Emergency department patient visit ZAK KENT [facility] Start: 01-15-2021 End: 01-16-2021 Emergency department patient visit Zak Kent Work Phone: [facility] Comment on above: Acute bilateral low back pain without sciatica (Primary Dx) Start: 01-02-2021 End: 01-02-2021 Emergency department patient visit NANCIE JESUS [facility] Start: 01-01-2021 End: 01-01-2021 Emergency department patient visit Nancie Jesus DO Work Phone: [facility] Comment on above: Nonintractable heada vania, unspecified chronicity pattern, unspecified headache type (Primary Dx) Start: 11-26-2020 End: 11-26-2020 Emergency department patient visit [facility] Comment on above: Suprapubic abdominal pain (Primary Dx) Start: 05-03-2020 End: 05-03-2020 Patient encounter procedure SIMONE GOSS Facility:[facility] Start: 06-13-2019 End: 06-13-2019 Patient encounter procedure JUDY BOOTH Facility:[facility] Start: 07-30-2017 End: 07-31-2017 Ambulatory DEFAULT PHYSICIAN Facility:[facility] Start: 07-26-2017 End: 07-27-2017 Ambulatory DEFAULT PHYSICIAN Facility:[facility] Procedures Date Procedure Procedure Detail Performing Clinician Start: 06-06-2022 H/O: section Hx of ce sarean section Felix Najera DO Work Phone: Start: 12-06-2021 Ct abdomen & pelvis w/o [...] Treatment Date Care Activity Detail Author Start: 07-12-2024 Adult BMI Screening Adult BMI Screen ing [facility] Start: 07-12-2024 Tobacco Screening Tobacco Screening [facility] Start: 01-26-2024 Influenza vaccination Influenza Vacc ine [facility] Start: 01-25-2023 COVID-19 Vaccine ( season) COVID-19 Vaccine ( season) [facility] Start: 10-27-2022 COVID-19 Vaccine (3 - Booster for Moderna series) COVID-19 Vaccine (3 - Booster for Moderna series) [facility] Comment on above: Postponed from 12/01 (Not Indicated) Start: 10-27-2022 [facility] Start: 10-27-2022 DTaP/Tdap/Td vaccine (5 - Tdap) DTaP/Tdap/Td vaccine (5 - Tdap) [facility] Comment on above: Postponed from 02/15 (Patient Refused) Start: 10-27-2022 Hepatitis C screening Hepatitis C sc reen [facility] Comment on above: Postponed from 02/15 (Patient Refused) Start: 10-27-2022 HIV screening HIV screen [facility] Comment on above: Postponed from 02/15 (Patient Refused) Start: 10-27-2022 Pneumococcal 0-64 ye ars Vaccine (1 - PCV) Pneumococcal 0-64 years Vaccine (1 - PCV) [facility] Comment on above: Postponed from 02/15 (Not Indicated) Start: 10-27-2022 Screening for malign ant neoplasm of cervix Pap smear [facility] Comment on above: Postponed from 02/15 (Not Indicated) Start: 01-25-2022 Influenza vaccination Flu vaccine (# 1) [facility] Start: 08-29-2021 Depression Monitoring Depression [facility] Start: 01-25-2021 Influenza vaccination Flu vaccine (# 1) [facility] Start: 11-29-2020 End: 11-29-2020 Patient encounter procedure 11/29/2020 Office Visit Obstetrics and Gynecology Kori Westbrook, [employer]STRUCTION SUPERINTENDENT - CNM [address] [place] [address] [facility] Start: 2014 Screening for malign ant neoplasm of cervix [facility] Start: 2011 Adult BMI Follow Up Plan Adult BMI Follow Up Plan [facility] Start: 02-16-2008 HIV screening HIV screen [facility] Start: 2005 COVID-19 Vaccine (1) COVID-19 Vaccin e (1) [facility] Start: 2005 Depression Screening Depression Scre ening [facility] [employer] Start: 02-16-2004 DTaP,Tdap and Td Vaccines (5 - Tdap) DTaP,Tdap and Td Vaccines (5 - Tdap) [facility] [employer] [facility] Start: 02-16-2004 DTaP/Tdap/Td vaccine (5 - Tdap) DTaP/Tdap/Td vaccine (5 - Tdap) [facility] Start: 1999 Pneumococcal 0-64 ye ars Vaccine (1 of 2 - PPSV23) Pneumococcal 0-64 years Vaccine (1 of 2 - PPSV23) [facility] Start: 1998 COVID-19 Vaccine (1) COVID-19 Vaccin e (1) [facility] Start: 1994 Varicella vaccine (1 of 2 - 2-dose childhood series) Varicella vaccine (1 of 2 - 2-dose childhood series) [facility] Start: 1993 Hepatitis C screening [facility] sc reen [facility] End: 11-26-2020 C.trachomatis N.gonorrhoeae DNA C.trachomatis N.gonorrhoeae DNA Microbiology Routine One Time for 1 Occurrences starting 11/26/2020 until 11/26/2020 [employer] Phone: Comment on above: One Time for 1 Occur rences starting 11/26/2020 until 11/26/2020 C.trachomatis N.gonorrhoeae DNA C.trachomatis N.gonorrhoeae DNA Microbiology STAT 11/26/2020 2:10 PM EDT [facility] Phone: End: 11-26-2020 CT ABDOMEN PELVIS W IV CONTRAST Additional Contrast? None CT ABDOMEN PELVIS W IV CONTRAST Additional Contrast? None Imaging STAT Once for 1 Occurrences starting 11/26/2020 until 11/26/2020 [facility] Phone: Comment on above: Once for 1 Occurrenc es starting 11/26/2020 until 11/26/2020 End: 01-20-2025 hCG, quantitative, hCG, quantitative, Lab Routine Early stage of 2 days for 3 Occurrences starting 01/21/2024 until 01/20/2025 [employer] Phone: Comment on above: 2 days for 3 Occurre nces starting 01/21/2024 until 01/20/2025 End: 11-26-2020 Urinalysis Reflex to Culture Urinalysis Reflex to Culture Lab STAT One Time for 1 Occurrences starting 11/26/2020 until 11/26/2020 [facility] Phone: Comment on above: One Time for 1 Occur rences starting 11/26/2020 until 11/26/2020 Urinalysis Reflex to Culture Urinalysis Reflex to Culture Lab STAT 11/26/2020 2:00 PM EDT [facility] Work Phone: End: 11-26-2020 Vaginitis DNA Probe Vaginitis DNA Probe Microbiology Routine One Time for 1 Occurrences starting 11/26/2020 until 11/26/2020 [facility] Phone: Comment on above: One Time for 1 Occur rences starting 11/26/2020 until 11/26/2020 Vaginitis DNA Probe Vaginitis DN A Probe Microbiology STAT 11/26/2020 2:10 PM EDT [facility] Phone: Immunizations Immunization Date Immunization Notes Care Provider Radha díaz 07-04-2021 COVID-19, MODERNA BL UE border, Primary or Immunocompromised, (age 12y+), IM, 100 mcg/0.5mL Judith Smyth MD Work Phone: [facility] Phone: 04-27-2021 COVID-19, MODERNA BL UE border, Primary or Immunocompromised, (age 12y+), IM, 100 mcg/0.5mL Judith Smyth MD Work Phone: [facility] [place] Phone: 03-06-2000 measles, mumps and rubella virus vaccine Judith Smyth MD Work Phone: [email or web address] Work Phone: 01-17-1998 diphtheria, tetanus toxoids and acellular pertussis vaccine Judith Smyth MD Work Phone: [employer] Work Phone: 01-17-1998 poliovirus vaccine, inactivated Judith Smyth MD Work Phone: [employer] Work Phone: 07-19-1997 diphtheria, tetanus toxoids and acellular pertussis vaccine Judith Smyth MD Work Phone: [employer] Work Phone: 07-19-1997 haemophilus influenz ae type b vaccine, conjugate unspecified formulation Judith Smyth MD Work Phone: [employer] Work Phone: 07-19-1997 hepatitis B vaccine, adult dosage Judith Smyth MD Work Phone: [employer] Work Phone: 07-19-1997 poliovirus vaccine, inactivated Judith Smyth MD Work Phone: [employer] Work Phone: 05-24-1995 diphtheria, tetanus toxoids and acellular pertussis vaccine Judith Smyth MD Work Phone: [employer] Work Phone: 05-24-1995 haemophilus influenz ae type b vaccine, conjugate unspecified formulation Judith Smyth MD Work Phone: [employer] Work Phone: 05-24-1995 hepatitis B vaccine, adult dosage Judith Smyth MD Work Phone: [employer] Work Phone: 03-22-1995 diphtheria, tetanus toxoids and acellular pertussis vaccine Judith Smyth MD Work Phone: [employer] Work Phone: 03-22-1995 haemophilus influenz ae type b vaccine, conjugate unspecified formulation Judith Smyth MD Work Phone: [employer] Work Phone: 03-22-1995 hepatitis B vaccine, adult dosage Judith Smyth MD Work Phone: [employer] Work Phone: 03-22-1995 measles, mumps and rubella virus vaccine Judith Smyth MD Work Phone: [employer] Work Phone: 03-22-1995 poliovirus vaccine, inactivated Judith Smyth MD Work Phone: [email or web address] Work Phone: Payers Date Payer Category Payer Medicaid [employer] MEDICA[place] MED[place] [id number] 2022-Present [address] [place] [address] [id number] 2022 Medicaid [id number] 2018 Unknown [id number] 1993 Unknown [id number] 1993 Unknown [id number] 1993 Unknown [id number] 1993 Unknown [id number] 1993 Unknown [id number] 1993 Unknown [id number] 1993 Unknown [id number] 1993 Unknown [id number] 1993 Unknown [id number] 1993 Unknown [id number] 1959 Unknown [id number] Unknown Social History Date Type Detail Facility Start: 05-27-2011 End: 11-26-2020 Tobacco smoking status [facility] Current every day smoker [facility] Phone: Start: 05-27-2011 End: 12-25-2021 History of tobacco use Cigarette Smoker [facility] Start: 07-07-2020 End: 11-26-2020 Cigarettes smoked current (pack per day) - Reported [facility] Phone: Start: 11-26-2020 End: 06-06-2022 Tobacco use and exposure Never used [facility] Start: 11-26-2020 End: 12-06-2021 Alcohol intake Ex-drinker (finding) [facility] Phone: Start: 1995 Sex Assigned At Not on file [facility] Phone: Start: 11-26-2021 End: 12-06-2021 Exposure to SARS-CoV-2 (event) Not sure [facility] Start: 06-06-2022 Tobacco smoking status [facility] Start: 12-25-2012 End: 12-25-2021 History of tobacco use Current smoker [facility] Start: 07-12-2023 Alcoholic beverage intake Current non-drinker of alcohol (finding) [facility] Start: 01-28-2019 End: 07-07-2020 [facility] Frequency of Communication with Friends and Family Twice a week [facility] Start: 01-28-2019 Education 12 [facility] Start: 1995 Sex assigned at Female [facility] Start: 11-04-2018 Gender identity Identifies as female gender (finding) [facility] Start: 10-05-2019 Sexual orientation Bisexual (finding) [facility] Start: 10-05-2019 Sexual orientation Heterosexual (finding) [facility] Clinical Notes 11-26-2020 to 01-21-2024 Telephone Encounter - Vilma Shrestha - 01/21/2024 9:35 AM EDTTelephone Encounter - Vlima Shrestha - 01/21/2024 9:35 AM EDTTelephone Encounter - Vilma Shrestha - 01/21/2024 9:35 AM EDTInstructions Note Date & Type Note Facility 01-21-2024 Miscellaneous Notes Formattin g of this note might be different from the original. Patient states she had a very faint line on a UPT at home. Patient is wanting to confirm . Can Betas be ordered? Please advised. Thank you Tried to call Patient, but no answer & VM full. Advised Patient of lab order. Advised the Office will call with results. documented in this encounter [facility] 01-21-2024 Telephone encount er Note Patient states she had a very faint line on a UPT at home. Patient is wanting to confirm . Can Betas be ordered? Please advised. Thank you [facility] 01-21-2024 Telephone encount er Note Tried to call Patient, but no answer & VM full. [facility] 01-21-2024 Telephone encount er Note Advised Patient of lab order. Advised the Office will call with results. [facility] 04-29-2021 Hospital Discharg e instructions Jesus Paniagua DO - 04/29/2021 Return to the Emergency Department immediately if you develop worsening pain, redness, red streaks, fever , or you have any other concerns. Please follow up with your primary care doctor in 2-3 days. documented in this encounter [facility] Phone: 11-26-2020 Hospital Discharg e instructions Rodolfo Mckenzie PA-C - 11/26/2020 Follow-up with OBGyn on Saturday Tylenol or Motrin for pain if needed Drink plenty of fluids Return if pain worsens or any other concerns The following attachments cannot be sent through Care Everywhere.Pelvic Pain (Cypriot)documented in this encounter [facility] Phone: Evaluation note Diagnosis Suprapubic abdominal pain- Primary Abdominal pain, other specified site documented in this encounter [facility] Phone: evaluation note* Diagnosis Nonintractable headache, unspecified chronicity pattern, unspecified headache type- Primary documented in this encounter [facility] Phone: evaluation note* Diagnosis Acute bilateral low back pain without sciatica- Primary documented in this encounter [facility] Phone: evaluation note* Diagnosis Arm pain, anterior, right- Primary documented in this encounter [facility] Phone: evaluation note* Diagnosis Pain due to dental caries- Primary documented in this encounter [facility] Phone: evaluation note* Diagnosis Urinary tract infection without hematuria, site unspecified- Primary Flank pain Abdominal pain, unspecified site documented in this encounter [facility] [employer] Phone: evaluation note* Diagnosis Early stage of - Primary state, incidental [facility]* Instructions* Zak Kent DO - 01/16/2021 Continue alternating between Motrin and Tylenol every 4 hours for pain. Call and establish care with a family doctor. Return to the emergency department for new, worsening or worrisome symptoms whichinclude but are not limited to increased pain, weakness and numbness. documented [facility] Phone: Hospital Discharge instructions* Instructions* Nancie Jesus DO - 08/08/2021 Antibiotics as prescribed follow-up with a dentist to further evaluate your dental pain. Continue to take Tylenol and Motrin for pain control return to ER for worsening pain facial swelling difficulty swallowing. documented in [facility] Phone: Hospital Discharge instructions* Attachments The following attachments cannot be sent through Care Everywhere. * Flank Pain (Cypriot) * UTI (Urinary Tract Infection): Female (Cypriot) [facility] Phone: InstructionsNot on filedocumented in this encounter [facility] Summary Purpose Family History No Family History Records FoundNo Family History Records FoundNo Family History Records FoundNo Family History Records Found Advance Directives Documents on File Type Date Recorded Patient Lockstitcher Expl anation ACP-Advance Directive ACP-Power of Assembler [employer] Healthcare Agents on File Name Relationship Healthcare Agent Relationshi p Communication Marielalo Rascon Parent Primary Decision Maker Additional Source Comments INFORMATION SOURCE (unrecogn ized section and content) DATE CREATED AUTHOR 11/15/2017 [facility] DATE CREATED AUTHOR AUTHOR'S ORGANIZ ATION 05/07/2020 [facility] DATE CREATED AUTHOR AUTHOR'S ORGANIZ ATION 12/13/2021 [facility] DATE CREATED AUTHOR AUTHOR'S ORGANIZ ATION 01/24/2024 [facility] Reason for Visit (unrecogniz ed section and [...] On 01/16/21 at 0045, For 1 dose 0049 (Given - Provid er: Nancie Lubin RN) ibuprofen (ADVIL;MOTRIN) tablet 800 mg (COMPLETED) 800 mg, Oral, ONCE, On 01/16/21 at 0045, For 1 dose, Do not crush or chew. 0050 (Given - Provid er: Nancie Lubin RN) Scheduled Medication Order 04/27/2021 04/28/2021 04/29/2021 ibuprofen (ADVIL;MOTRIN) tablet 400 mg (COMPLETED) 400 mg, Oral, ONCE, On 04/29/21 at 2215, For 1 dose, Do not crush or chew. 2220 (Given - Provid er: Magalie Jones RN) ondansetron (ZOFRAN-ODT) disintegrating tablet 4 mg (COMPLETED) 4 mg, Oral, ONCE, On 04/29/21 at 2215, For 1 dose 222 (Given - Provid er: Magalie Jones RN) Scheduled Medication Order 08/06/2021 08/07/2021 08/08/2021 clindamycin (CLEOCIN) capsule 300 mg (COMPLETED) 300 mg, Oral, ONCE, On Sat08/08/21 at 1015, For 1 dose 1011 (Given - Provid er: Paula Reynoso RN) [...] IntraVENous, ONCE, 1 dose, On Sat12/06/21 at 1914, Antimicrobial Indications: Urinary Tract Infection 1924 (New [...] IntraVENous, ONCE, 1 dose, On Sat12/06/21 at 1914, Do not administer for more than 5 [...] Care Teams (unrecognized sec tion and content) Glass Washer Relationship Specialty Start Date End Date Bony Elia Ward, CONSTRUCTION SUPERINTENDENT - [employer] [address] [facility] [place] [address] PCP - General Family Nurse Practitioner 10/27/21 Glass Washer Relationship Specialty Start Date End Date No Pcp, [place] [address] PCP - General Family Medicine 07/12/23 FOR RECORDS PERTAINING TO PATIENTS WHO ARE [...] BE BASED ON THE PRIMARY CLINICAL RECORDS. [facility]. provides no warranty or guarantee of the accuracy or completeness of information in this document.
--- NOTE | 2024-08-17 13:26 | ED.URI1 ---
HPI - URI/Sore Throat General Chief Complaint: Upper Respiratory Infection Stated Complaint: SORE THROAT DRY COUGH Time Seen by Provider: 08/17/24 12:39 History of Present Illness HPI Narrative: 29-year-old female to the emergency department chief complaint of cough, burning sensation in her chest, malaise, chills. Everyone in the house is sick with a upper respiratory infection. She denies a history of asthma or COPD. She denies any chest pain. Denies any shortness of breath. She reports that she gets in severe coughing fits. Related Data Previous Rx's ?Medication ?Instructions ?Recorded albuterol sulfate 90 mcg/actuation 2 inh inhalation Q4H PRN shortness 08/17/24 aerosol inhaler of breath or wheezing #6.7 grams vidtgvpangigpbp-gkykfqqovfabhrc-YS 5 ml PO Q4H PRN cold symptoms #118 08/17/24 2 mg-30 mg-10 mg/5 mL oral syrup mL (Bromfed DM) prednisone 20 mg tablet 40 mg (2 x 20 mg) PO DAILY 5 days 08/17/24 #10 tabs Allergies Allergy/AdvReac Type Severity Reaction Status Date / Time Penicillins Allergy Severe Verified 10/14/23 10:07 Review of Systems ROS Status of ROS 10 or more systems reviewed and unremarkable except as noted in history and below PFSH PFSH Social History Little interest or pleasure in doing things: not at all Feeling down, depressed, or hopeless: not at all Exam Narrative Exam Narrative: VITALS: I have reviewed the triage vital signs. GENERAL: Well developed, well appearing adult in no acute distress. NEURO: Alert and oriented. Moves all extremities. Face is symmetric and expressive. EYES: PERRL. No scleral icterus or conjunctival injection. No discharge. HENT: Normocephalic, atraumatic. Hearing is grossly intact. Nares grossly patent and without discharge. Mucous membranes moist. NECK: No JVD. Patient moves neck without restriction. CARDIO: Rhythm regular. Normal rate. No murmur, rub, or gallop. Pulses equal bilaterally in the upper and lower extremity. No lower extremity edema. PULM: Dry cough. Trace wheezes. No conversational dyspnea. No splinting, stridor, or accessory muscle use. GI/: Abdomen is soft and non-tender. Normoactive bowel sounds. EXTREMITIES: Symmetric muscle bulk. No joint swelling. No clubbing, cyanosis, or deformity. SKIN: Warm and dry. Normal turgor. No rash or lesions appreciated. PSYCH: Mood, affect, and interaction is appropriate to the setting. Constitutional Vital Signs, click to edit/add: Last Vital Signs Temp 98.3 F 08/17/24 12:18 Pulse 93 H 08/17/24 12:18 Resp 18 08/17/24 12:18 BP 132/92 H 08/17/24 12:18 Pulse Ox 97 08/17/24 12:18 Course Vital Signs Vital signs: Vital Signs Temperature 98.3 F 08/17/24 12:18 Pulse Rate 93 H 08/17/24 12:18 Respiratory Rate 18 08/17/24 12:18 Blood Pressure 132/92 H 08/17/24 12:18 Pulse Oximetry 97 08/17/24 12:18 Temperature 98.3 F 08/17/24 12:18 Pulse Rate 93 H 08/17/24 12:18 Respiratory Rate 18 08/17/24 12:18 Blood Pressure 132/92 H 08/17/24 12:18 Pulse Oximetry 97 08/17/24 12:18 MDM - URI/Sore Throat MDM Narrative Medical decision making narrative: 29-year-old female to the emergency department chief complaint of cough. Vital stable, the patient is afebrile. Clinical diagnosis of bronchitis. Will treat with steroid and albuterol. Return precautions were discussed. All questions were answered. The patient was discharged home. [facility] DATA #116 - Avoidance of Antibiotic Treatment for Acute Bronchitis/Bronchiolitis [x] The patient has acute bronchitis/bronchiolitis and antibiotics were not prescribed or dispensed today. [SATISFIES [facility] PERFORMANCE] [] The patient has acute bronchitis/ bronchiolitis. Antibiotics were prescribed or dispensed because the patient meets one of the following: [[facility] PERFORMANCE EXCEPTION/EXCLUSION] [] Patient has a medical reason for prescribing or dispensing an antibiotic. That reason is [] (ex. COPD, bacterial infection, acute sinusitis, etc.). [] Patient is currently on antibiotics or has been in the last 30 days. [] Patient's visit resulted in an inpatient admission. [] The patient has acute bronchitis/ bronchiolitis and antibiotics were prescribed or dispensed today. [DOES NOT SATISFY [facility] PERFORMANCE] Medical Records Attestation: I reviewed the patient's medical records. Discharge Plan Discharge Chief Complaint: Upper Respiratory Infection Clinical Impression: Upper respiratory infection, viral, Bronchitis Patient Disposition: Home, Self-Care Time of Disposition Decision: 12:55 Condition: Good Mode of Transportation: Private Vehicle Prescriptions / Home Meds: New prednisone 20 mg tablet 40 mg PO DAILY 5 Days Qty: 10 0RF lltuzszlbyaeoqc-amrfsmepy-IK [Bromfed DM] 2-30-10 mg/5 mL syrup 5 ml PO Q4H PRN (Reason: cold symptoms) Qty: 118 0RF albuterol sulfate 90 mcg/actuation HFA aerosol inhaler 2 inh inhalation Q4H PRN (Reason: shortness of breath or wheezing) Qty: 6.7 0RF Print Language: Malay Instructions: How to Use a Metered-Dose Inhaler (ED), Upper Respiratory Infection (ED), Acute Bronchitis (ED) Additional Instructions: Call the office of your primary care doctor to arrange for follow-up within the above-stated timeframe. Your ED visit was focused on your acute issue and does not replace primary care. You should review your labs, imaging, and diagnoses from this ED visit with your primary care physician. There may be non-emergent/ incidental findings that need further evaluation. You should review your vital signs including blood pressure with your PCP. If you were prescribed medications you should discuss possible side-effects and drug interactions with your pharmacist. Call 911 or go to the nearest Emergency Department if you develop any new or worsening symptoms. Referrals: Physician,Non-Staff, MD [Primary Care Provider] - 1 week Discharge Date/Time: 08/17/24 13:07
== END 2024-08-17 13:07 | disposition home or self-care (01) ==
PROVIDERS: Emergency Provider Student in an Organized Health Care Education/Training Program
DX: J20.9 Acute bronchitis, unspecified (principal); J06.9 Acute upper respiratory infection, unspecified
CPT/HCPCS: 99283